=== PATIENT | male | born 1945 ===

== ENCOUNTER 2017-03-07 08:33 | Inpatient (IN) | payer MEDICARE, OTHER ==
[2017-03-07 08:33] VITALS: BMI 25.8
[2017-03-07] MEDS ORDERED: Sodium Chloride 0.9% 500 ML IV ONE (08:57)
--- NOTE | 2017-03-07 08:59 | C.PDOC ---
History Of Present Illness 71 y/o male, history of diabetes and CAD w/ stent, while on vacation in [place] developed ulcer to left medial calf. Patient states he returned from [place] yesterday and saw PMD Dr. Vyas in office yesterday, who sent him in to hospital today for non-healing ulcer. Patient reports pain and swelling to left leg. Denies chest pain, fever, trauma, new weakness, new numbness, or other associated symptoms. Time Seen by Provider: 03/07/17 08:44 Chief Complaint (Nursing): Lower Extremity Problem/Injury History Per: Patient History/Exam Limitations: no limitations Onset/Duration Of Symptoms: Days Current Symptoms Are (Timing): Still Present Recent travel outside of the Home States: Yes Past Medical History Reviewed: Historical Data, Nursing Documentation, Vital Signs Vital Signs: Last Vital Signs Temp 97.5 F L 03/07/17 08:37 Pulse 105 H 03/07/17 08:52 Resp 16 03/07/17 08:52 BP 124/69 03/07/17 08:52 Pulse Ox 100 03/07/17 09:37 - Medical History PMH: Benign Prostatic Hyperplasia, Fractures (RIGHT ARM), HTN, Peripheral Edema , Pneumonia (1964) - [employer] Procedures INSERT INDWELLING CATH (04/08/15) NONEXCIS DEBRID OF WOUND, INFECT, OR BURN (01/31/13) OTHER SKIN & SUBQ I D (01/31/13) VENOUS CATHETERIZATION NEC (01/31/13) Family History: States: Unknown Family Hx - Social History Hx Tobacco Use: No Hx Alcohol Use: No Hx Substance Use: No - Immunization History Hx Tetanus Toxoid Vaccination: No Hx Influenza Vaccination: No Hx Pneumococcal Vaccination: No Review Of Systems Except As Marked, All Systems Reviewed And Found Negative. Constitutional: Negative for: Fever, Chills Cardiovascular: Negative for: Chest Pain, Palpitations Respiratory: Negative for: Cough, Shortness of Breath, Wheezing Gastrointestinal: Negative for: Nausea, Vomiting, Abdominal Pain Genitourinary: Negative for: Dysuria Musculoskeletal: Positive for: Leg Pain Skin: Positive for: Lesions (left lower leg) Neurological: Negative for: Weakness, Numbness, Headache, Dizziness Physical Exam - Physical Exam Appears: Well, Non-toxic, No Acute Distress Skin: Normal Color, Warm, Dry Head: Atraumatic, Normacephalic Oral Mucosa: Moist Chest: Symmetrical Cardiovascular: Rhythm Regular (tachycardic) Respiratory: Normal Breath Sounds, No Rales, No Rhonchi, No Wheezing Gastrointestinal/Abdominal: Soft, No Tenderness, No Guarding, No Rebound Back: Normal Inspection Extremity: Normal ROM, No Deformity, Other (R lower leg WNL. L lower leg: swelling to calf with some tenderness, ulceration to medial ankle, distal pulses intact, normal ROM ) Pulses: Left Dorsalis Pedis: Normal, Right Dorsalis Pedis: Normal Neurological/Psych: Oriented x3, Normal Speech, Normal Cognition, Normal Motor, Normal Sensation ED Course And Treatment - Laboratory Results Result Diagrams: 03/07/17 09:07 03/07/17 09:07 O2 Sat by Pulse Oximetry: 100 (RA) Pulse Ox Interpretation: Normal Medical Decision Making Medical Decision Making: Plan: VBG, venous dupolex scan, labs, Toradol, and IVF's. Admit to Dr. Vyas. 9:30AM Lactate WNL. BP and tachycardia improving after IVF. CBC WNL. Zosyn infusing after chavez culture (as requested by Dr. Vyas). U/s negative for DVT. Disposition Discussed With DrNancy: Peri Vyas Doctor Will See Patient In The: Hospital - Disposition Disposition: HOSPITALIZED Disposition Time: 09:03 Condition: FAIR - Clinical Impression Clinical Impression: Non-healing ulcer of lower leg - Scribe Statement The provider has reviewed the documentation as recorded by the Scribe Ye Jimenez All medical record entries made by the Carol Annibe were at my direction and personally dictated by me. I have reviewed the chart and agree that the record accurately reflects my personal performance of the history, physical exam, medical decision making, and the department course for this patient. I have also personally directed, reviewed, and agree with the discharge instructions and disposition. Decision To Admit - Pt Status Changed To: Hospital Disposition Of: Observation - . Bed Request Type: Regular Patient Diagnosis: Non-healing ulcer of lower leg
--- NOTE | 2017-03-07 09:02 | C.PDOC ---
Time Seen by Provider: 03/07/17 08:44 Chief Complaint (Nursing): Lower Extremity Problem/Injury Past Medical History Vital Signs: Last Vital Signs Temp 97.5 F L 03/07/17 08:37 Pulse 112 H 03/07/17 08:37 Resp 18 03/07/17 08:37 BP 98/62 L 03/07/17 08:37 Pulse Ox 100 03/07/17 08:37 - Medical History PMH: Benign Prostatic Hyperplasia, Fractures (RIGHT ARM), HTN, Peripheral Edema , Pneumonia (1964) Denies: Chronic Kidney Disease - [employer] Procedures INSERT INDWELLING CATH (04/08/15) NONEXCIS DEBRID OF WOUND, INFECT, OR BURN (01/31/13) OTHER SKIN & SUBQ I D (01/31/13) VENOUS CATHETERIZATION NEC (01/31/13) - Social History Hx Tobacco Use: No Hx Alcohol Use: No Hx Substance Use: No - Immunization History Hx Tetanus Toxoid Vaccination: No Hx Influenza Vaccination: No Hx Pneumococcal Vaccination: No ED Course And Treatment O2 Sat by Pulse Oximetry: 100
[2017-03-07 09:06] LABS: VENOUS BLOOD GAS BASE EXCESS -0.6 mmol/L (0.0-2.0); VENOUS BLOOD GAS PCO2 46 mmHg (40-60); VENOUS BLOOD GAS PO2 19 mm/Hg (30-55); VENOUS BLOOD PH 7.35 (7.32-7.43)
[2017-03-07 09:10] LABS: BASO # 0.1 K/uL (0.0-0.2); EOS # 0.5 K/uL (0.0-0.7); EOS % 6.2 % (0.0-4.0); HEMOGLOBIN 10.4 g/dL (12.0-18.0); LYMPH # 1.4 K/uL (1.0-4.3); LYMPH % 18.4 % (20.0-40.0); MEAN CELL VOLUME 90.3 fL (80.0-94.0); MEAN CORPUSCULAR HEMOGLOBIN 31.5 pg (27.0-31.0); MEAN CORPUSCULAR HGB CONC 34.9 g/dL (33.0-37.0); MONO # 0.4 K/uL (0.0-0.8); MONO % 5.9 % (0.0-10.0); NEUT # 5.2 K/uL (1.8-7.0); NEUT % 68.5 % (50.0-75.0); RBC 3.29 Mil/uL (4.40-5.90); RED CELL DISTRIBUTION WIDTH 14.2 % (11.5-14.5); WHITE BLOOD COUNT 7.6 K/uL (4.8-10.8)
[2017-03-07] MEDS ORDERED: Piperacillin/Tazobact 3.375 gm 100 ML IVPB STA (09:16)
[2017-03-07 09:18] LABS: ALBUMIN 4.2 g/dL (3.5-5.0)
[2017-03-07 09:18] LABS: VENOUS BLOOD GAS BASE EXCESS -2.2 mmol/L (0.0-2.0); VENOUS BLOOD GAS PCO2 47 mmHg (40-60); VENOUS BLOOD GAS PO2 20 mm/Hg (30-55); VENOUS BLOOD PH 7.32 (7.32-7.43)
[2017-03-07 09:21] LABS: ALB/GLOB RATIO 1.3 (1.0-2.1)
[2017-03-07 09:22] LABS: CALCIUM 9.1 mg/dl (8.6-10.4); MAGNESIUM 1.4 mg/dL (1.6-2.3)
[2017-03-07] MEDS ORDERED: Piperacillin/Tazobact 3.375 gm 100 ML IVPB ONE (09:34)
[2017-03-07 09:56] LABS: SQUAMOUS EPITHIAL 4 /hpf (0-5); URINE BACTERIA RARE (<OCC); URINE BILIRUBIN NEGATIVE (NEGATIVE); URINE BLOOD NEGATIVE (NEGATIVE); URINE CLARITY Hazy (Clear); URINE COLOR Yellow (YELLOW); URINE GLUCOSE (UA) NORMAL (Normal); URINE LEUKOCYTE ESTERASE 3+ Leu/uL (Negative); URINE NITRATE NEGATIVE (NEGATIVE); URINE PROTEIN NEGATIVE (NEGATIVE); URINE UROBILINOGEN NORMAL mg/dL (0.2-1.0)
--- NOTE | 2017-03-07 10:49 | RAD ---
HISTORY: tachycardia COMPARISON: 02/04/2013 FINDINGS: LUNGS: Mild venous congestion. Patchy left basilar airspace opacity with trace left pleural effusion. PLEURA: As above. CARDIOVASCULAR: Mild cardiomegaly. OSSEOUS STRUCTURES: Degenerative changes in the spine and shoulders. VISUALIZED UPPER ABDOMEN: Normal. OTHER FINDINGS: None. IMPRESSION: Mild venous congestion. Patchy left basilar airspace opacity with trace left pleural effusion.
[2017-03-07] MEDS ORDERED: Home Med 1 UNIT (Metformin [Glucophage] 1,000 MG) PO SCH (12:00)
[2017-03-07] MEDS ORDERED: DUTASTERIDE 0.5 MG PO SCH (12:00)
--- NOTE | 2017-03-07 14:03 | VASCLAB ---
PROCEDURE: Left Lower Extremity Venous Duplex Exam. HISTORY: ulcer to LLE with swelling PRIORS: None. TECHNIQUE: Left common femoral, femoral, popliteal and posterior tibial, peroneal and great saphenous veins were evaluated. Flow was assessed with color Doppler, compressibility, assessment of phasic flow and augmentation response. Report prepared by RYANN Wallace, RVT FINDINGS: LEFT: 1. Common Femoral Vein: 1.1. Compressibility - Fully compressible: Thrombus - None : Flow - Phasic: Augmentation -Normal: Reflux - None. 2. Femoral Vein: 2.1. Compressibility - Fully compressible: Thrombus - None: Flow - Phasic: Augmentation -Normal: Reflux - None. 3. Popliteal Vein: 3.1. Compressibility - Fully compressible: Thrombus - None: Flow - Phasic: Augmentation -Normal: Reflux - None. 4. Posterior Tibial Vein: 4.1. Compressibility - Fully compressible: Thrombus - None: Flow - Phasic: Augmentation -Normal: Reflux - None. 5. Peroneal Vein: 5.1. Compressibility - Fully compressible: Thrombus - None: Flow - Phasic: Augmentation -Normal: Reflux - None. 6. Great Saphenous Vein: 6.1. Compressibility - Fully compressible: Thrombus - None: Flow - Phasic: Augmentation - Normal: Reflux - None. OTHER FINDINGS: IMPRESSION: No evidence of deep or superficial vein thrombosis of the left lower extremity with excellent venous flow. Normal valve function noted of the left side. Normal venous flow noted in the right common femoral vein.
--- NOTE | 2017-03-07 14:14 | CP.PCM.HP ---
History of Present Illness - History of Present Illness History of Present Illness: COMPREHENSIVE HISTORY & PHYSICAL EXAM HPI ADMITTED FOR FURTHER TREATNET FOR FOOT ULCER . PT HAD T2DM, RECENTLY WENT TO [place] AND HAD MINI STROKE AND INSERTED 2 STENTS IN CORONARIES . SUBSEQUENTLY DEVELOPED ULCER AND SWELLING OF L LEG AND REQIRED 2 WEEKS IN HOSPITAL FOR IV AB PT RETURNED TO THE STATES TO CONTINUE THERAPY . PT STILL HAS DRAINING ULCEER OF LEFT LEG WITH CELLULITIS PAST HIST. COPD/CAD/STENT/T2DM/EDEMA LEGS /RENAL INSUFFICIANCY/PROSTATE /STROKE WITH FULL RECOVERY PERSONAL HIST: Smoking. N Alcohol. N Allergy N Travel_- [place] . FAMILY HIST : ROS : Constitutional: Negative for weight change, chills, night sweats, fatigue and usage of assist device. Eyes: Negative for redness, swelling, itching, discharge, vision changes, blurry vision, double vision, glaucoma, cataracts, Ears: Negative for hearing loss, ringing, , tinnitus, vertigo Nose: Negative for rhinorrhea, stuffiness, sniffing, itching, postnasal drip, discoloration, nasal congestion and epistaxis. Throat: Negative for throat clearing, sore throat, hoarseness, difficulty swallowing and difficulty speaking. Respiratory: Negative for cough, , sputum production, chest tightness, wheezing, pleuritic chest pain ,daytime somnolence, chronic cough, hemoptysis, snoring at night, Cardiovascular: Negative for chest pain, palpitations, orthopnea, PND, Edema of legs, leg cramps, angina, claudication, , irregular heartbeat, Neurology: Negative for irritability, muscle weakness, numbness and tingling, seizures, tremors, migraines, slurred speech, syncope, memory loss, mood changes , recurrent headaches Gastrointestinal: Negative for difficulty swallowing, diarrhea, constipation, black stools, rectal bleeding, nausea, flatulence, reflux, poor appetite, changes in bowel habits, abdominal pain Genitourinary: Negative for frequent urination, hematuria, discharge, incontinence, urinary retention, frequent UTI, Psychiatric: Negative for depression, anxiety/panic, suicidal tendencies, Musculoskeletal: LEFT LEG SWOLLEN . R. N Skin: Negative for rash, ulcers, itching, dry skin and pigmented lesions. P/E: Constitutional: Appears stated age and in no apparent distress. Head: Normocephalic. Ears: External ear canals patent without inflammation. Tympanic membranes intact with normal light reflex and landmark. Eyes: Pupils are central, bilaterally equal, symmetrical and reacts to light with normal movements and no icterus or pallor. Nose: External nares are patent. Mucosa is pink Mouth-Throat: Good general appearance and condition. No post-pharyngeal/oropharyngeal erythema and tonsillar hypertrophy. Good dental hygiene. Neck-Lymphatic: Neck is supple with normal ROM, no thyromegaly, lymph nodes or masses. JVD is normal with no carotid bruit. Lungs: Clear to percussion and auscultation with bilateral normal air entry. Cardiovascular: S1 and S2 are normal with no murmurs, gallops and rub. GI Exam: No hepatomegaly. Abdomen is soft and non-tender. No Organomegaly , masses or hernias are evident and bowel sounds are normal and active. Neurology: Higher function and all cranial nerves intact, with no gross motor or sensory deficit. Superficial and deep reflexes are normal with downwards planters. No cerebellar deficit with normal gait. Musculoskeletal: No tender spots with normal curvature of the spine with no swelling or restricted ROM of the small and large joints. Extremities:LEFT LEG IS SWOLLEN WITH CELLULITIS . 2 OPEN SPOTS WITH PUS DRAINING Skin: No rash, eruptions or abnormal skin pigmentation LAB/RADIOLOGY: ASSESMENT : DIABETES WITH LEFT FOOT ULCER , INFECTED RECENT STENT IN CORONARIES HTN/T2DM/COPD PLAN: LOCAL WOUND CARE AND IV AB Present on Admission - Present on Admission Any Indicators Present on Admission: No Past Patient History - Infectious Disease Hx of Infectious Diseases: None - Past Medical History & Family History Past Medical History?: Yes - Past Social History Smoking Status: Never Smoked - CARDIAC Hx Hypertension: Yes Hx Peripheral Edema: Yes - PULMONARY Hx Pneumonia: Yes (1965) - NEUROLOGICAL Hx Neurological Disorder: No - HEENT Hx HEENT Problems: Yes Hx Glaucoma: Yes - RENAL Hx Chronic Kidney Disease: No - ENDOCRINE/METABOLIC Hx Endocrine Disorders: Yes Hx Diabetes Mellitus Type 2: Yes - HEMATOLOGICAL/ONCOLOGICAL Hx Blood Disorders: No - INTEGUMENTARY Hx Dermatological Problems: Yes (PRURITIS) Other/Comment: Mass of neck/scalp - MUSCULOSKELETAL/RHEUMATOLOGICAL Hx Fractures: Yes (RIGHT ARM) - GASTROINTESTINAL Hx Gastrointestinal Disorders: No - GENITOURINARY/GYNECOLOGICAL Hx Genitourinary Disorders: Yes Hx Prostate Problems: Yes - PSYCHIATRIC Hx Substance Use: No - SURGICAL HISTORY Hx Surgeries: Yes Hx Cardiac Catheterization: Yes Hx Orthopedic Surgery: Yes (RIGHT SHOULDER) Other/Comment: CYST FROM BUTTOCKS, prostate bx - ANESTHESIA Hx Anesthesia: Yes Hx Anesthesia Reactions: No Hx Malignant Hyperthermia: No Meds Allergies/Adverse Reactions: Allergies Allergy/AdvReac Type Severity Reaction Status Date / Time shellfish derived Allergy Verified 03/07/17 08:44 tetanus toxoid, adsorbed Allergy RASH Verified 03/07/17 08:44 Results - Vital Signs Recent Vital Signs: Last Vital Signs Temp 97.5 F L 03/07/17 08:37 Pulse 77 03/07/17 12:42 Resp 14 03/07/17 12:42 BP 131/70 03/07/17 12:42 Pulse Ox 100 03/07/17 12:42 - Labs Result Diagrams: 03/07/17 09:07 03/07/17 09:07 Labs: Laboratory Results - last 24 hr 03/07/17 09:44 Urine Color Yellow Urine Clarity Hazy Urine pH 5.0 Ur Specific [place] 1.012 Urine Protein Negative Urine Glucose (UA) Normal Urine Ketones Negative Urine Blood Negative Urine Nitrate Negative Urine Bilirubin Negative Urine Urobilinogen Normal Ur Leukocyte Esterase 3+ H Urine WBC (Auto) 24 H Urine RBC (Auto) 4 H Ur Squamous Epith Cells 4 Urine Bacteria Rare
[2017-03-07] MEDS: (Novolin R) Insulin Human Regular 100 units/ml vial SC SCH ×2 (17:23→22:08)
--- NOTE | 2017-03-07 21:00 | CP.PCM.CON ---
History of Present Illness - History of Present Illness History of Present Illness: INFECTIOUS DISEASE CONSULT; HPI; 71 y/o male, history of diabetes and CAD w/ stent, while on vacation in [place] developed ulcer to left medial calf. Patient states he returned from [place] yesterday and saw PMD Dr. Vyas in office yesterday, who sent him in to hospital today for non-healing ulcer. Patient reports pain and swelling to left leg. Denies chest pain, fever, trauma. PATIENT STATES HE WAS ON IV /AND ORAL ANTIBIOTICS FOR 2 WEEKS WHILE IN [place] AND WAS TOLD TO FOLLOW-UP WITH HIS PMD FOR NOT RESOLVING CELLULITIS/AND SWELLING OF HIS LEFT ANKLE WITH SEROSANGUINEOUS DRAINAGE INTERMITTENTLY. INFECTIOUS DISEASE CONSULTATION REQUESTED BY PMD FOR CELLULITIS/SWELLING AND PAIN LEFT LOWER LEG AND ANKLE. PATIENT ALSO STATES HE HAS DIFFICULTY AMBULATING. PATIENT DENIES ANY INSECT BITE OR TRAUMA TO THE LOWER EXTREMITY. PMH: Benign Prostatic Hyperplasia, Fractures (RIGHT ARM), HTN, Peripheral Edema , Pneumonia (1965),DM-2. ALLERGIES; SHELLFISH, TETANUS TOXOID. - [employer] Procedures INSERT INDWELLING CATH (04/08/15) NONEXCIS DEBRID OF WOUND, INFECT, OR BURN (01/31/13) OTHER SKIN & SUBQ I D (01/31/13) VENOUS CATHETERIZATION NEC (01/31/13) Family History: States: Unknown Family Hx - Social History Hx Tobacco Use: No Hx Alcohol Use: No Hx Substance Use: No - Immunization History Hx Tetanus Toxoid Vaccination: No Hx Influenza Vaccination: No Hx Pneumococcal Vaccination: No Review of Systems - Constitutional Constitutional: absent: Chills, Fever - EENT Eyes: absent: Change in Vision Ears: absent: Dizziness Nose/Mouth/Throat: absent: Sore Throat - Cardiovascular Cardiovascular: Pedal Edema (LEFT LOWER EXTREMITY.). absent: Chest Pain, Dyspnea - Respiratory Respiratory: absent: Hemoptysis, Dyspnea on Exertion - Gastrointestinal Gastrointestinal: absent: Abdominal Pain, Diarrhea, Nausea, Vomiting - Genitourinary Genitourinary: absent: Dysuria, Nocturia - Integumentary Integumentary: Rash (LEFT LOWER ANKLE AND LOWER EXTREMITY WITH CELLULITIS AND ERYTHEMA. aLSO EDEMA OF THE LEFT ANKLE. nO OPEN DRAINAGE AT PRESENT NOTED.) - Hematologic/Lymphatic Hematologic: As Per HPI. absent: Easy Bruising, Lymphadenopathy Past Patient History - Infectious Disease Hx of Infectious Diseases: None - Past Medical History & Family History Past Medical History?: Yes - Past Social History Smoking Status: Never Smoked - CARDIAC Hx Hypertension: Yes Hx Peripheral Edema: Yes - PULMONARY Hx Pneumonia: Yes (1965) - NEUROLOGICAL Hx Neurological Disorder: No - HEENT Hx HEENT Problems: Yes Hx Glaucoma: Yes - RENAL Hx Chronic Kidney Disease: No - ENDOCRINE/METABOLIC Hx Endocrine Disorders: Yes Hx Diabetes Mellitus Type 2: Yes - HEMATOLOGICAL/ONCOLOGICAL Hx Blood Disorders: No - INTEGUMENTARY Hx Dermatological Problems: Yes (PRURITIS) Other/Comment: Mass of neck/scalp - MUSCULOSKELETAL/RHEUMATOLOGICAL Hx Fractures: Yes (RIGHT ARM) - GASTROINTESTINAL Hx Gastrointestinal Disorders: No - GENITOURINARY/GYNECOLOGICAL Hx Genitourinary Disorders: Yes Hx Prostate Problems: Yes - PSYCHIATRIC Hx Substance Use: No - SURGICAL HISTORY Hx Surgeries: Yes Hx Cardiac Catheterization: Yes Hx Orthopedic Surgery: Yes (RIGHT SHOULDER) Other/Comment: CYST FROM BUTTOCKS, prostate bx - ANESTHESIA Hx Anesthesia: Yes Hx Anesthesia Reactions: No Hx Malignant Hyperthermia: No Meds Allergies/Adverse Reactions: Allergies Allergy/AdvReac Type Severity Reaction Status Date / Time shellfish derived Allergy Verified 03/07/17 08:44 tetanus toxoid, adsorbed Allergy RASH Verified 03/07/17 08:44 - Medications Medications: Current Medications Doxazosin Mesylate (Cardura) 4 mg PO DAILY [facility] Last Admin: 03/07/17 13:05 Dose: Not Given Finasteride (Proscar) 5 mg PO DAILY [facility] Furosemide (Lasix) 40 mg PO DAILY [facility] Last Admin: 03/07/17 13:06 Dose: Not Given Glipizide (Glucotrol) 10 mg PO BID [facility] Last Admin: 03/07/17 18:49 Dose: 10 mg Piperacillin Sod/Tazobactam (Sod 3.375 gm/ Sodium Chloride) 100 mls @ 200 mls/ hr IVPB Q8H [facility] Vancomycin HCl 1 gm/ Sodium (Chloride) 250 mls @ 166.7 mls/hr IVPB Q24H [facility] Insulin Human Regular (Novolin R) 0 unit SC ACHS [facility] PRN Reason: Protocol Last Admin: 03/07/17 17:23 Dose: Not Given Lisinopril (Zestril) 2.5 mg PO DAILY [facility] Last Admin: 03/07/17 13:06 Dose: Not Given Metformin HCl (Glucophage) 1,000 mg PO BID [facility] Last Admin: 03/07/17 18:49 Dose: 1,000 mg Ticagrelor (Brilinta) 90 mg PO BID [facility] Physical Exam - Constitutional Appears: No Acute Distress - Head Exam Head Exam: NORMAL INSPECTION - Eye Exam Eye Exam: EOMI, PERRL - ENT Exam ENT Exam: Normal Oropharynx - Neck Exam Neck exam: Positive for: Normal Inspection - Respiratory Exam Respiratory Exam: Clear to Auscultation Bilateral - Cardiovascular Exam Cardiovascular Exam: REGULAR RHYTHM, +S1, +S2 - GI/Abdominal Exam GI & Abdominal Exam: Normal Bowel Sounds, Soft. absent: Tenderness - Extremities Exam Extremities exam: Positive for: pedal edema (LEFT ANKLE AND LOWER EXTREMITY WITH SWELLING AND QUESTIONABLE ABSCESS LEFT ANKLE. wARM TO TOUCH.), pedal pulses present. Negative for: calf tenderness - Neurological Exam Neurological exam: Alert, CN II-XII Intact, Oriented x3, Reflexes Normal - Psychiatric Exam Psychiatric exam: Normal Mood - Skin Skin Exam: Normal Color, Warm Results - Vital Signs Recent Vital Signs: Last Vital Signs Temp 98.3 F 03/07/17 19:21 Pulse 90 03/07/17 19:21 Resp 20 03/07/17 19:21 BP 111/50 L 03/07/17 19:21 Pulse Ox 98 03/07/17 19:21 - Labs Result Diagrams: 03/07/17 09:07 03/07/17 09:07 Labs: Laboratory Results - last 24 hr 03/07/17 03/07/17 09:44 16:53 POC Glucose (mg/dL) 117 H Urine Color Yellow Urine Clarity Hazy Urine pH 5.0 Ur Specific [place] 1.012 Urine Protein Negative Urine Glucose (UA) Normal Urine Ketones Negative Urine Blood Negative Urine Nitrate Negative Urine Bilirubin Negative Urine Urobilinogen Normal Ur Leukocyte Esterase 3+ H Urine WBC (Auto) 24 H Urine RBC (Auto) 4 H Ur Squamous Epith Cells 4 Urine Bacteria Rare - Imaging and Cardiology Chest x-ray Status: Report reviewed by me (03/07/17 chest x-ray patchy left basilar airspace opacity with trace left pleural effusion.) Assessment & Plan (1) Cellulitis and abscess of foot Assessment and Plan: pancultures ESR,CRP,. MRSA SCREENING START iv ZOSYN 3.375 EVERY 8 HOURLY .03/07/17. ADD iv VANCOMYCIN 1 G ONCE A DAY DAILY FOR STAPH AND STREP COVERAGE 03/07/17. X-RAY OF THE LEFT ANKLE/FOOT RULE OUT OSTEOMYELITIS OR FRACTURE. 3-PHASE BONE SCAN LEFT ANKLE AND FOOT RULE OUT OSTEOMYELITIS. fOLLOW-UP vANCO TROUGH LEVEL PRIOR TO THE FOURTH DOSE ON 03/11/17 AND KEEP BETWEEN 10 AND 20. mONITOR RENAL FUNCTIONS CLOSELY. Status: Acute (2) Non-healing ulcer of lower leg Status: Acute (3) CAD (coronary artery disease) Assessment and Plan: S/P CARDIAC STENTS 2 PLACED IN [place]. Status: Acute (4) Diabetes mellitus Assessment and Plan: HEMOGLOBIN a1C. aND TIGHT CONTROL OF BLOOD SUGARS. Status: Acute (5) Renal insufficiency Assessment and Plan: monitor renal functions. IV fluids as per PMD as BUN elevated to 47. Status: Acute
[2017-03-07] MEDS: Piperacillin/Tazobact 3.375 GM in Sodium Chloride 100 ML IVPB SCH (21:58)
[2017-03-08] MEDS: Piperacillin/Tazobact 3.375 GM in Sodium Chloride 100 ML IVPB SCH ×3 (06:29→21:00)
[2017-03-08 07:29] LABS: BASO % 0.5 % (0.0-2.0); EOS # 0.6 K/uL (0.0-0.7); EOS % 7.7 % (0.0-4.0); HEMOGLOBIN 9.4 g/dL (12.0-18.0); LYMPH # 0.6 K/uL (1.0-4.3); LYMPH % 7.7 % (20.0-40.0); MEAN CELL VOLUME 90.3 fL (80.0-94.0); MEAN CORPUSCULAR HEMOGLOBIN 31.2 pg (27.0-31.0); MEAN CORPUSCULAR HGB CONC 34.6 g/dL (33.0-37.0); MEAN PLATELET VOLUME 9.1 fL (7.2-11.7); MONO # 0.5 K/uL (0.0-0.8); MONO % 6.8 % (0.0-10.0); NEUT # 5.9 K/uL (1.8-7.0); NEUT % 77.3 % (50.0-75.0); PLATELET COUNT 183 K/uL (130-400); WHITE BLOOD COUNT 7.7 K/uL (4.8-10.8)
[2017-03-08] MEDS: (Novolin R) Insulin Human Regular 100 units/ml vial SC SCH ×4 (07:50→21:16)
[2017-03-08 08:26] LABS: ALBUMIN 3.4 g/dL (3.5-5.0)
[2017-03-08 08:29] LABS: ALB/GLOB RATIO 1.2 (1.0-2.1); BILIRUBIN,DIRECT 0.4 mg/dL (0.0-0.4)
[2017-03-08 08:30] LABS: CALCIUM 8.6 mg/dl (8.6-10.4)
[2017-03-08 08:43] LABS: EOSINOPHIL 3 % (0-4); LYMPHOCYTE 8 % (20-40); MONOCYTE 2 % (0-10); NEUTROPHIL 87 % (50-75); PLATELET ESTIMATE NORMAL (NORMAL); TOTAL CELLS COUNTED 100
--- NOTE | 2017-03-08 10:15 | RAD ---
PROCEDURE: Left Ankle Radiographs. HISTORY: R/O OSTEOMYLITIS/FRACTURE COMPARISON: None FINDINGS: BONES: Normal. No fracture. JOINTS: Normal. No osteoarthritis. Ankle mortise maintained. Talar dome intact SOFT TISSUES: Normal. OTHER FINDINGS: None. IMPRESSION: Normal left ankle radiographs.
--- NOTE | 2017-03-08 13:52 | CP.PCM.PN ---
Subjective - Date & Time of Evaluation Date of Evaluation: 03/08/17 Time of Evaluation: 13:50 - Subjective Subjective: CHIEF COMPLAINTS TODAY : PAIN LEFT FOOT ROS. HEENT : N. Resp : No cough, wheezing ,pleuritic CP ,or hemoptysis Cardio : No anginal CP, PND, orthopnea, palpitation GI : No abd.pain, n/v ,diarrhea or GI bleeding . MEDICAL CLAIMS ANALYST : No headache, vertigo, focal deficit. Musculoskel : No joint swelling , Derm : No rash Psych : Normal affect. Ext : No swelling ,calf pain PE. Pt. is alert awake in no distress. V.S As noted in the chart Head ,ear nose,throat and eyes : Normal. Neck : Supple with normal carotids. Lungs: Clear air entry. Heart : S1 & S2 normal with S4. No murmur. Abd : Soft non tender with normal bowel sounds. Neuro : Moves all ext. with no localized deficit. Ext : LEFT LEG SWOLLEN WITH CELLULITIS ON DORSUM AND MEDIAL PART OF ANKLE JT. WITH POSSIBLE ABSCESS Derm : No rashes or decubitus ulcer. LABS/RADIOLOGY: [facility] AUR ASSESSMENT/PLAN : IV AB MAY NEED I&D Objective - Vital Signs/Intake and Output Vital Signs (last 24 hours): Temp Pulse Resp BP Pulse Ox 98.1 F 86 20 120/69 97 03/07/17 23:57 03/07/17 23:57 03/07/17 23:57 03/08/17 09:55 03/07/17 23:57 Intake and Output: 03/08/17 03/08/17 11:59 23:59 Intake Total 100 Balance 100 - Medications Medications: Current Medications Doxazosin Mesylate (Cardura) 4 mg PO DAILY [facility] Last Admin: 03/08/17 09:50 Dose: 4 mg Finasteride (Proscar) 5 mg PO DAILY [facility] Last Admin: 03/08/17 09:50 Dose: 5 mg Furosemide (Lasix) 40 mg PO DAILY [facility] Last Admin: 03/08/17 09:55 Dose: 40 mg Glipizide (Glucotrol) 10 mg PO BID [facility] Last Admin: 03/08/17 09:49 Dose: 10 mg Heparin Sodium (Porcine) (Heparin) 5,000 units SC Q12 [facility] Last Admin: 03/08/17 09:51 Dose: 5,000 units Piperacillin Sod/Tazobactam (Sod 3.375 gm/ Sodium Chloride) 100 mls @ 200 mls/ hr IVPB Q8H [facility] Last Admin: 03/08/17 06:29 Dose: 200 mls/hr Vancomycin HCl 1 gm/ Sodium (Chloride) 250 mls @ 166.7 mls/hr IVPB Q24H [facility] Last Admin: 03/07/17 21:58 Dose: 166.7 mls/hr Insulin Human Regular (Novolin R) 0 unit SC ACHS [facility] PRN Reason: Protocol Last Admin: 03/08/17 12:32 Dose: 3 unit Lisinopril (Zestril) 2.5 mg PO DAILY [facility] Last Admin: 03/08/17 09:49 Dose: 2.5 mg Metformin HCl (Glucophage) 1,000 mg PO BID [facility] Last Admin: 03/08/17 09:49 Dose: 1,000 mg Pneumococcal Polyvalent Vaccine (Pneumovax 23 Vaccine) 0.5 ml IM .ONCE ONE Stop: 03/10/17 10:01 Ticagrelor (Brilinta) 90 mg PO BID [facility] Last Admin: 03/08/17 09:48 Dose: 90 mg - Labs Labs: 03/08/17 06:44 03/08/17 06:44
--- NOTE | 2017-03-08 23:07 | CP.PCM.PN ---
Subjective - Date & Time of Evaluation Date of Evaluation: 03/08/17 Time of Evaluation: 23:07 - Subjective Subjective: CHIEF COMPLAINTS TODAY : afebrile, c/o pain left ankle and foot Left lower leg swollen with cellulitis extending on the ankle and dorsum and medial part of the ankle ? abscess. ROS. HEENT : N. Resp : No cough, wheezing ,pleuritic CP ,or hemoptysis Cardio : No anginal CP, PND, orthopnea, palpitation GI : No abd.pain, n/v ,diarrhea or GI bleeding . EDUCATION REPORTER : No headache, vertigo, focal deficit. Musculoskel : No joint swelling , Derm : No rash Psych : Normal affect. Ext : No swelling ,calf pain PE. Pt. is alert awake in no distress. V.S As noted in the chart Head ,ear nose,throat and eyes : Normal. Neck : Supple with normal carotids. Lungs: Clear air entry. Heart : S1 & S2 normal with S4. No murmur. Abd : Soft non tender with normal bowel sounds. Neuro : Moves all ext. with no localized deficit. Ext : LEFT LEG SWOLLEN WITH CELLULITIS ON DORSUM AND MEDIAL PART OF ANKLE JT. WITH POSSIBLE ABSCESS Derm : No rashes or decubitus ulcer. LABS/RADIOLOGY: ESR 58 CREAT1.7 / BUN 45 URINE CULTURE +VE staph aureus more than 100,000 colonies per mL. Blood cultures -ve to date Objective - Vital Signs/Intake and Output Vital Signs (last 24 hours): Temp Pulse Resp BP Pulse Ox 98.1 F 96 H 20 126/63 99 03/08/17 16:00 03/08/17 16:44 03/08/17 16:00 03/08/17 16:44 03/08/17 16:44 Intake and Output: 03/08/17 03/09/17 18:59 06:59 Intake Total 580 Balance 580 - Medications Medications: Current Medications Doxazosin Mesylate (Cardura) 4 mg PO DAILY [facility] Last Admin: 03/08/17 09:50 Dose: 4 mg Furosemide (Lasix) 40 mg PO DAILY [facility] Last Admin: 03/08/17 09:55 Dose: 40 mg Glipizide (Glucotrol) 10 mg PO BID [facility] Last Admin: 03/08/17 17:04 Dose: 10 mg Heparin Sodium (Porcine) (Heparin) 5,000 units SC Q12 [facility] Last Admin: 03/08/17 21:37 Dose: Not Given Home Med (Patient's Own Medication) 1 tab PO DAILY [facility] Piperacillin Sod/Tazobactam (Sod 3.375 gm/ Sodium Chloride) 100 mls @ 200 mls/ hr IVPB Q8H [facility] Last Admin: 03/08/17 21:00 Dose: 200 mls/hr Vancomycin HCl 1 gm/ Sodium (Chloride) 250 mls @ 166.7 mls/hr IVPB Q24H [facility] Last Admin: 03/08/17 21:39 Dose: 166.7 mls/hr Insulin Human Regular (Novolin R) 0 unit SC ACHS [facility] PRN Reason: Protocol Last Admin: 03/08/17 21:16 Dose: Not Given Lisinopril (Zestril) 2.5 mg PO DAILY [facility] Last Admin: 03/08/17 09:49 Dose: 2.5 mg Metformin HCl (Glucophage) 1,000 mg PO BID [facility] Last Admin: 03/08/17 17:04 Dose: 1,000 mg Pneumococcal Polyvalent Vaccine (Pneumovax 23 Vaccine) 0.5 ml IM .ONCE ONE Stop: 03/10/17 10:01 Tamsulosin HCl (Flomax) 0.4 mg PO DAILY [facility] Last Admin: 03/08/17 15:18 Dose: 0.4 mg Ticagrelor (Brilinta) 90 mg PO BID [facility] Last Admin: 03/08/17 17:04 Dose: 90 mg - Labs Labs: 03/08/17 06:44 03/08/17 06:44 Assessment and Plan (1) Cellulitis and abscess of foot Assessment & Plan: x-rays left ankle- N. rADIOGRAPH. tHREE-PHASE BONE SCAN IN PROGRESS. cONTINUE iv zOSYN 3.375 EVERY 8 HOURLY. cONTINUE iv VANCOMYCIN 1 G EVERY 24 HOURLY. Status: Acute (2) Non-healing ulcer of lower leg Assessment & Plan: SURGICAL CONSULT FOR POSSIBLE DRAINAGE AND DEBRIDEMENT LEFT LE/ANKLE ABSCESS fOLLOW-UP THREE-PHASE BONE SCAN. wOUND CARE IN PROGRESS. Status: Acute (3) CAD (coronary artery disease) Status: Acute (4) Diabetes mellitus Status: Acute (5) Renal insufficiency Status: Acute (6) UTI (urinary tract infection) Assessment & Plan: urine culture positive for staph aureus. Identification pending. Patient on IV Vancomycin/IV Zosyn. Status: Acute
[2017-03-09] MEDS: Piperacillin/Tazobact 3.375 GM in Sodium Chloride 100 ML IVPB SCH ×3 (05:40→21:42)
[2017-03-09] MEDS: (Novolin R) Insulin Human Regular 100 units/ml vial SC SCH ×4 (08:02→21:49)
[2017-03-09 08:46] LABS: BASO % 0.7 % (0.0-2.0); EOS # 0.9 K/uL (0.0-0.7); EOS % 16.1 % (0.0-4.0); HEMOGLOBIN 9.6 g/dL (12.0-18.0); LYMPH # 0.8 K/uL (1.0-4.3); LYMPH % 13.5 % (20.0-40.0); MEAN CELL VOLUME 90.6 fL (80.0-94.0); MEAN CORPUSCULAR HEMOGLOBIN 31.1 pg (27.0-31.0); MEAN CORPUSCULAR HGB CONC 34.4 g/dL (33.0-37.0); MEAN PLATELET VOLUME 9.3 fL (7.2-11.7); MONO # 0.5 K/uL (0.0-0.8); MONO % 8.2 % (0.0-10.0); NEUT # 3.4 K/uL (1.8-7.0); NEUT % 61.5 % (50.0-75.0); RBC 3.08 Mil/uL (4.40-5.90); RED CELL DISTRIBUTION WIDTH 14.3 % (11.5-14.5); WHITE BLOOD COUNT 5.6 K/uL (4.8-10.8)
[2017-03-09 08:58] LABS: ALBUMIN 3.6 g/dL (3.5-5.0)
[2017-03-09 09:01] LABS: ALB/GLOB RATIO 1.2 (1.0-2.1)
[2017-03-09 09:02] LABS: CALCIUM 8.7 mg/dl (8.6-10.4)
[2017-03-09] MEDS: DUTASTERIDE 0.5 MG PO SCH ×2 (09:37→16:15)
--- NOTE | 2017-03-09 09:44 | NM ---
PROCEDURE: Three-phase bone scan HISTORY: LT.ANKLE/FOOT R/O Osteomyelitis. COMPARISON: 03/08/2017 left ankle radiographs. TECHNIQUE: Following administration of miCu of Tc MDP multiplanar whole body images were obtained. FINDINGS: Flow component: Increased flow left lower extremity compared to right primarily medial aspect without focal osseous abnormality Blood pool component: Accumulation of radionuclide in the soft tissues adjacent to but not involving the distal tibia and ankle mortise region Delayed images at 3:00: No accumulation of radionuclide within osseous structures, particular attention directed to the left ankle region. Other findings: None. IMPRESSION: Findings consistent with cellulitis left lower extremity without acute osseous process.
[2017-03-09] MEDS ORDERED: Lactated Ringer's 1,000 ML IV ONE (12:35)
[2017-03-09] MEDS ORDERED: Midazolam 2 MG/2 ML VIAL ONE (12:38)
[2017-03-09] MEDS ORDERED: Bupivacaine HCl 0.25% PF (10 ml) Inj ONE ×2 (12:38)
[2017-03-09] MEDS ORDERED: Lidocaine 1% Inj (20ml) ONE (12:39)
[2017-03-09] MEDS ORDERED: Propofol 10 mg/ml Inj (20 ML) ONE (12:39)
[2017-03-09] MEDS ORDERED: HYDROmorphone 0.5 mg/0.5 ml ISec IVP PRN (13:25)
--- NOTE | 2017-03-09 14:00 | CP.PCM.PN ---
Subjective - Date & Time of Evaluation Date of Evaluation: 03/09/17 Time of Evaluation: 13:59 - Subjective Subjective: CHIEF COMPLAINTS TODAY : PAIN LEFT FOOT S/P LEFT FOOT I&D ROS. HEENT : N. Resp : No cough, wheezing ,pleuritic CP ,or hemoptysis Cardio : No anginal CP, PND, orthopnea, palpitation GI : No abd.pain, n/v ,diarrhea or GI bleeding . CHIEF OF FIELD OPERATIONS : No headache, vertigo, focal deficit. Musculoskel : No joint swelling , Derm : No rash Psych : Normal affect. Ext : No swelling ,calf pain PE. Pt. is alert awake in no distress. V.S As noted in the chart Head ,ear nose,throat and eyes : Normal. Neck : Supple with normal carotids. Lungs: Clear air entry. Heart : S1 & S2 normal with S4. No murmur. Abd : Soft non tender with normal bowel sounds. Neuro : Moves all ext. with no localized deficit. Ext : LEFT LEG SWOLLEN WITH CELLULITIS ON DORSUM AND MEDIAL PART OF ANKLE JT. WITH POSSIBLE ABSCESS Derm : No rashes or decubitus ulcer. LABS/RADIOLOGY: [facility] AUR ASSESSMENT/PLAN : IV AB KIEL Objective - Vital Signs/Intake and Output Vital Signs (last 24 hours): Temp Pulse Resp BP Pulse Ox 97.7 F 80 13 138/76 100 03/09/17 13:15 03/09/17 13:45 03/09/17 13:45 03/09/17 13:45 03/09/17 13:45 Intake and Output: 03/09/17 03/09/17 11:59 23:59 Intake Total 100 Balance 100 - Medications Medications: Current Medications Doxazosin Mesylate (Cardura) 4 mg PO DAILY [facility] Last Admin: 03/09/17 09:36 Dose: Not Given Furosemide (Lasix) 40 mg PO DAILY [facility] Last Admin: 03/09/17 09:36 Dose: Not Given Glipizide (Glucotrol) 10 mg PO BID [facility] Last Admin: 03/09/17 09:36 Dose: Not Given Heparin Sodium (Porcine) (Heparin) 5,000 units SC Q12 [facility] Last Admin: 03/09/17 09:37 Dose: Not Given Home Med (Patient's Own Medication) 1 tab PO DAILY [facility] Last Admin: 03/09/17 09:37 Dose: Not Given Hydromorphone HCl (Dilaudid) 0.5 mg IVP Q10M PRN PRN Reason: Pain, moderate (4-7) Stop: 03/09/17 15:28 Piperacillin Sod/Tazobactam (Sod 3.375 gm/ Sodium Chloride) 100 mls @ 200 mls/ hr IVPB Q8H [facility] Last Admin: 03/09/17 05:40 Dose: 200 mls/hr Vancomycin HCl 1 gm/ Sodium (Chloride) 250 mls @ 166.7 mls/hr IVPB Q24H [facility] Last Admin: 03/08/17 21:39 Dose: 166.7 mls/hr Lactated Ringer's (Lactated Ringer's) 1,000 mls @ 100 mls/hr IV .Q10H [facility] Insulin Human Regular (Novolin R) 0 unit SC ACHS [facility] PRN Reason: Protocol Last Admin: 03/09/17 12:02 Dose: Not Given Lisinopril (Zestril) 2.5 mg PO DAILY [facility] Last Admin: 03/09/17 09:37 Dose: Not Given Metformin HCl (Glucophage) 1,000 mg PO BID [facility] Last Admin: 03/09/17 09:36 Dose: Not Given Ondansetron HCl (Zofran Inj) 4 mg IVP ONCE PRN PRN Reason: Nausea/Vomiting Stop: 03/09/17 15:29 Pneumococcal Polyvalent Vaccine (Pneumovax 23 Vaccine) 0.5 ml IM .ONCE ONE Stop: 03/10/17 10:01 Tamsulosin HCl (Flomax) 0.4 mg PO DAILY [facility] Last Admin: 03/09/17 09:36 Dose: Not Given Ticagrelor (Brilinta) 90 mg PO BID [facility] Last Admin: 03/09/17 09:36 Dose: Not Given Tramadol HCl (Ultram) 50 mg PO TID PRN PRN Reason: pain - Labs Labs: 03/09/17 08:32 03/09/17 08:32
[2017-03-09] MEDS: Lactated Ringer's 1,000 ML IV SCH (14:46)
--- NOTE | 2017-03-09 16:04 | CP.PCM.PN ---
Subjective - Date & Time of Evaluation Date of Evaluation: 03/09/17 Time of Evaluation: 16:04 - Subjective Subjective: CHIEF COMPLAINTS TODAY : s/p I & D LLL/ANKLE AND CULTURES TAKEN IN OR. 03/09/17 afebrile, c/o pain left ankle and foot +VE DRESSING IN PLACE ROS. HEENT : N. Resp : No cough, wheezing ,pleuritic CP ,or hemoptysis Cardio : No anginal CP, PND, orthopnea, palpitation GI : No abd.pain, n/v ,diarrhea or GI bleeding . FITTING ROOM CHECKER : No headache, vertigo, focal deficit. Musculoskel : No joint swelling , Derm : No rash Psych : Normal affect. Ext : LLE /ANKLE +VE DRESSING , +VE calf pain PE. Pt. is alert awake in no distress. V.S As noted in the chart Head ,ear nose,throat and eyes : Normal. Neck : Supple with normal carotids. Lungs: Clear air entry. Heart : S1 & S2 normal with S4. No murmur. Abd : Soft non tender with normal bowel sounds. Neuro : Moves all ext. with no localized deficit. Ext : LEFT LEG S/P I & D . DRESSING IN PLACE S/P I & D 03/09/17 Derm : No rashes or decubitus ulcer. LABS/RADIOLOGY: bone scan +ve cellulitis without osseous process. ESR 58 CREAT1.6 / BUN 35 URINE CULTURE +VE staph aureus more than 100,000 colonies per mL. (MSSA ) Blood cultures -ve to date Objective - Vital Signs/Intake and Output Vital Signs (last 24 hours): Temp Pulse Resp BP Pulse Ox 97.8 F 74 15 132/64 99 03/09/17 14:00 03/09/17 14:15 03/09/17 14:00 03/09/17 14:15 03/09/17 14:00 - Medications Medications: Current Medications Doxazosin Mesylate (Cardura) 4 mg PO DAILY [facility] Last Admin: 03/09/17 09:36 Dose: Not Given Furosemide (Lasix) 40 mg PO DAILY [facility] Last Admin: 03/09/17 09:36 Dose: Not Given Glipizide (Glucotrol) 10 mg PO BID [facility] Last Admin: 03/09/17 09:36 Dose: Not Given Heparin Sodium (Porcine) (Heparin) 5,000 units SC Q12 [facility] Last Admin: 03/09/17 09:37 Dose: Not Given Home Med (Patient's Own Medication) 1 tab PO DAILY [facility] Last Admin: 03/09/17 09:37 Dose: Not Given Piperacillin Sod/Tazobactam (Sod 3.375 gm/ Sodium Chloride) 100 mls @ 200 mls/ hr IVPB Q8H [facility] Last Admin: 03/09/17 14:45 Dose: 200 mls/hr Vancomycin HCl 1 gm/ Sodium (Chloride) 250 mls @ 166.7 mls/hr IVPB Q24H [facility] Last Admin: 03/08/17 21:39 Dose: 166.7 mls/hr Lactated Ringer's (Lactated Ringer's) 1,000 mls @ 100 mls/hr IV .Q10H [facility] Last Admin: 03/09/17 14:46 Dose: 100 mls/hr Insulin Human Regular (Novolin R) 0 unit SC ACHS [facility] PRN Reason: Protocol Last Admin: 03/09/17 12:02 Dose: Not Given Lisinopril (Zestril) 2.5 mg PO DAILY [facility] Last Admin: 03/09/17 09:37 Dose: Not Given Metformin HCl (Glucophage) 1,000 mg PO BID [facility] Last Admin: 03/09/17 09:36 Dose: Not Given Pneumococcal Polyvalent Vaccine (Pneumovax 23 Vaccine) 0.5 ml IM .ONCE ONE Stop: 03/10/17 10:01 Tamsulosin HCl (Flomax) 0.4 mg PO DAILY [facility] Last Admin: 03/09/17 09:36 Dose: Not Given Ticagrelor (Brilinta) 90 mg PO BID [facility] Last Admin: 03/09/17 09:36 Dose: Not Given Tramadol HCl (Ultram) 50 mg PO TID PRN PRN Reason: pain Assessment and Plan (1) Cellulitis and abscess of foot Assessment & Plan: PATIENT STATUS POST INCISION AND DRAINAGE AND DEBRIDEMENT OF THE LEFT ANKLE ABSCESS.03/09/17 PER SURGERY , PURULENT MATERIAL DRAINED FROM THE ANKLE AND MEDIAL ASPECT OF THE LEFT ANKLE, WHICH IS SWOLLEN ALSO. CONTINUE iv ZOSYN 3.375 EVERY 8 HOURLY .03/07/17. CONTINUE iv VANCOMYCIN 1 G ONCE A DAY DAILY FOR STAPH AND STREP COVERAGE . F/U CULTURES TO ADJUST ANTIBIOTICS. Status: Acute (2) Non-healing ulcer of lower leg Assessment & Plan: FOLLOW-UP CULTURES AND ADJUST ANTIBIOTICS. Status: Acute (3) CAD (coronary artery disease) Status: Acute (4) Diabetes mellitus Status: Acute (5) Renal insufficiency Status: Acute (6) UTI (urinary tract infection) Assessment & Plan: URINE CULTURE +VE STAPH AUREUS (MSSA ) RENAL ULTRASOUND RULE OUT HYDRONEPHROSIS /NEPHROLITHIASIS. Status: Acute
--- NOTE | 2017-03-09 23:11 | OP ---
PROCEDURE DATE: 03/09/2017 PREOPERATIVE DIAGNOSIS: Infected mass of the left ankle with abscess. POSTOPERATIVE DIAGNOSIS: Infected mass on the left ankle with abscess. PROCEDURE PERFORMED: Wide deep excision of infected mass of the left ankle with drainage of abscess, repair of blood vessel, and partial adjacent tissue transfer closure. SURGEON: Abel Ulloa MD TYPE OF ANESTHESIA: General. ESTIMATED BLOOD LOSS: 20 mL. POSTOPERATIVE CONDITION: Stable. 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 DESCRIPTION OF PROCEDURE: The patient was taken to the operating room and general anesthesia was administered. The left ankle was prepped and draped. An elliptical incision was made surrounding the infected mass and it was removed and sent for specimen and the underlying pus was drained and cultured. The bleeding was controlled using the Bovie and exposed large vessel was repaired. The wound was irrigated with copious amounts of saline solution. Partial tissue transfer closure was performed. The central portion wound was packed up in wet saline gauze. The patient tolerated the procedure well and sent to recovery room in stable condition. Abel Ulloa MD
[2017-03-10] MEDS: Lactated Ringer's 1,000 ML IV SCH ×3 (04:54→21:12)
[2017-03-10] MEDS: Piperacillin/Tazobact 3.375 GM in Sodium Chloride 100 ML IVPB SCH ×3 (05:00→21:05)
[2017-03-10] MEDS: (Novolin R) Insulin Human Regular 100 units/ml vial SC SCH ×4 (07:44→21:12)
[2017-03-10 08:23] LABS: BASO % 0.6 % (0.0-2.0); EOS # 0.9 K/uL (0.0-0.7); EOS % 15.6 % (0.0-4.0); HEMOGLOBIN 8.8 g/dL (12.0-18.0); LYMPH # 0.9 K/uL (1.0-4.3); LYMPH % 15.4 % (20.0-40.0); MEAN CELL VOLUME 90.4 fL (80.0-94.0); MEAN CORPUSCULAR HEMOGLOBIN 30.8 pg (27.0-31.0); MEAN CORPUSCULAR HGB CONC 34.1 g/dL (33.0-37.0); MEAN PLATELET VOLUME 9.2 fL (7.2-11.7); MONO # 0.4 K/uL (0.0-0.8); MONO % 7.1 % (0.0-10.0); NEUT # 3.5 K/uL (1.8-7.0); NEUT % 61.3 % (50.0-75.0); RBC 2.87 Mil/uL (4.40-5.90); RED CELL DISTRIBUTION WIDTH 14.3 % (11.5-14.5); WHITE BLOOD COUNT 5.7 K/uL (4.8-10.8)
[2017-03-10 08:42] LABS: ALBUMIN 3.3 g/dL (3.5-5.0)
[2017-03-10 08:44] LABS: AST/SGOT 14 U/L (17-59); GFR AFRICAN-AMERICAN > 60; GFR NON-AFRICAN AMERICAN 50
[2017-03-10 08:45] LABS: ALB/GLOB RATIO 1.2 (1.0-2.1); ALT/SGPT 24 U/L (21-72); BLOOD UREA NITROGEN 24 mg/dL (9-20); CALCIUM 8.7 mg/dl (8.6-10.4)
[2017-03-10] MEDS: DUTASTERIDE 0.5 MG PO SCH (09:23)
[2017-03-10] MEDS ORDERED: Pneumococcal 23-Valent Vaccine IM ONE (10:00)
--- NOTE | 2017-03-10 11:35 | US ---
PROCEDURE: Ultrasound of the Kidneys HISTORY: RULE OUT NEPHROLITHIASIS/HYDRO COMPARISON: None available. TECHNIQUE: Grayscale imaging was performed. FINDINGS: RIGHT KIDNEY: Measures: 12.2 cm. Normal in size, contour with diffuse increased echogenicity. No stone, solid mass lesion or hydronephrosis visualized. LEFT KIDNEY: Measures: 12.3 cm. Normal in size, contour with diffuse increased echogenicity. No stone, solid mass lesion or hydronephrosis visualized. There is a 2.3 x 1.7 x 2.4 cm simple cyst in the upper pole. OTHER FINDINGS: None. IMPRESSION: 1. Medical renal disease. 2. No hydronephrosis or nephrolithiasis.
--- NOTE | 2017-03-10 13:13 | CARD ---
APPROVED REPORT EKG Measurement Heart [id number] <Conclusion> Normal sinus rhythm Left anterior fascicular block Left ventricular hypertrophy with QRS widening Abnormal ECG
--- NOTE | 2017-03-10 13:22 | CP.PCM.PN ---
Subjective - Date & Time of Evaluation Date of Evaluation: 03/10/17 Time of Evaluation: 13:21 - Subjective Subjective: CHIEF COMPLAINTS TODAY : PAIN LEFT FOOT S/P LEFT FOOT I&D ROS. HEENT : N. Resp : No cough, wheezing ,pleuritic CP ,or hemoptysis Cardio : No anginal CP, PND, orthopnea, palpitation GI : No abd.pain, n/v ,diarrhea or GI bleeding . CLERK TYPIST : No headache, vertigo, focal deficit. Musculoskel : No joint swelling , Derm : No rash Psych : Normal affect. Ext : No swelling ,calf pain PE. Pt. is alert awake in no distress. V.S As noted in the chart Head ,ear nose,throat and eyes : Normal. Neck : Supple with normal carotids. Lungs: Clear air entry. Heart : S1 & S2 normal with S4. No murmur. Abd : Soft non tender with normal bowel sounds. Neuro : Moves all ext. with no localized deficit. Ext : LEFT LEG SWOLLEN WITH CELLULITIS ON DORSUM AND MEDIAL PART OF ANKLE JT. WITH POSSIBLE ABSCESS Derm : No rashes or decubitus ulcer. LABS/RADIOLOGY: [facility] AUR ASSESSMENT/PLAN : IV AB KIEL Objective - Vital Signs/Intake and Output Vital Signs (last 24 hours): Temp Pulse Resp BP Pulse Ox 98.2 F 96 H 20 110/60 98 03/09/17 23:33 03/09/17 23:33 03/09/17 23:33 03/10/17 09:24 03/09/17 23:33 - Medications Medications: Current Medications Aspirin (Ecotrin) 81 mg PO DAILY [facility] Last Admin: 03/10/17 09:25 Dose: 81 mg Doxazosin Mesylate (Cardura) 4 mg PO DAILY [facility] Last Admin: 03/10/17 09:25 Dose: 4 mg Furosemide (Lasix) 40 mg PO DAILY [facility] Last Admin: 03/10/17 09:24 Dose: 40 mg Glipizide (Glucotrol) 10 mg PO BID [facility] Last Admin: 03/10/17 09:24 Dose: 10 mg Heparin Sodium (Porcine) (Heparin) 5,000 units SC Q12 [facility] Last Admin: 03/10/17 09:23 Dose: 5,000 units Home Med (Patient's Own Medication) 1 tab PO DAILY [facility] Last Admin: 03/10/17 09:23 Dose: 1 tab Piperacillin Sod/Tazobactam (Sod 3.375 gm/ Sodium Chloride) 100 mls @ 200 mls/ hr IVPB Q8H [facility] Last Admin: 03/10/17 05:00 Dose: 200 mls/hr Vancomycin HCl 1 gm/ Sodium (Chloride) 250 mls @ 166.7 mls/hr IVPB Q24H [facility] Last Admin: 03/09/17 22:15 Dose: 166.7 mls/hr Lactated Ringer's (Lactated Ringer's) 1,000 mls @ 100 mls/hr IV .Q10H [facility] Last Admin: 03/10/17 10:00 Dose: Not Given Insulin Human Regular (Novolin R) 0 unit SC ACHS [facility] PRN Reason: Protocol Last Admin: 03/10/17 12:11 Dose: 3 unit Lisinopril (Zestril) 2.5 mg PO DAILY [facility] Last Admin: 03/10/17 09:25 Dose: 2.5 mg Metformin HCl (Glucophage) 1,000 mg PO BID [facility] Last Admin: 03/10/17 09:25 Dose: 1,000 mg Tamsulosin HCl (Flomax) 0.4 mg PO DAILY [facility] Last Admin: 03/10/17 09:25 Dose: 0.4 mg Ticagrelor (Brilinta) 90 mg PO BID [facility] Last Admin: 03/10/17 09:25 Dose: 90 mg Tramadol HCl (Ultram) 50 mg PO TID PRN PRN Reason: pain - Labs Labs: 03/10/17 08:10 03/10/17 08:10
--- NOTE | 2017-03-10 13:37 | CP.PCM.PN ---
Subjective - Date & Time of Evaluation Date of Evaluation: 03/10/17 Time of Evaluation: 13:36 - Subjective Subjective: HIEF COMPLAINTS TODAY : s/p I & D LLL/ANKLE AND CULTURES TAKEN IN OR. 03/09/17 afebrile, c/o pain left ankle and foot +VE DRESSING IN PLACE ROS. HEENT : N. Resp : No cough, wheezing ,pleuritic CP ,or hemoptysis Cardio : No anginal CP, PND, orthopnea, palpitation GI : No abd.pain, n/v ,diarrhea or GI bleeding . 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 Musculoskel : No joint swelling , Derm : No rash Psych : Normal affect. Ext : LLE /ANKLE +VE DRESSING , +VE calf pain PE. Pt. is alert awake in no distress. V.S As noted in the chart Head ,ear nose,throat and eyes : Normal. Neck : Supple with normal carotids. Lungs: Clear air entry. Heart : S1 & S2 normal with S4. No murmur. Abd : Soft non tender with normal bowel sounds. Neuro : Moves all ext. with no localized deficit. Ext : LEFT LEG S/P I & D . DRESSING IN PLACE S/P I & D 03/09/17 Derm : No rashes or decubitus ulcer. LABS/RADIOLOGY: WBC 5.7 WOUND CULTURE -VE GROWTH FOR 24 HOURS. bone scan +ve cellulitis without osseous process. ESR 58 CREAT1.4 / BUN 24 URINE CULTURE +VE staph aureus more than 100,000 colonies per mL. (MSSA ) Blood cultures -ve to date Objective - Vital Signs/Intake and Output Vital Signs (last 24 hours): Temp Pulse Resp BP Pulse Ox 97.5 F L 98 H 20 110/68 98 03/10/17 10:00 03/10/17 10:00 03/10/17 10:00 03/10/17 10:00 03/10/17 10:00 Intake and Output: 03/10/17 03/10/17 06:59 18:59 Intake Total 1200 Balance 1200 - Medications Medications: Current Medications Aspirin (Ecotrin) [address] [facility] Last Admin: 03/10/17 09:25 Dose: 81 mg Doxazosin Mesylate (Cardura) [address] [facility] Last Admin: 03/10/17 09:25 Dose: 4 mg Furosemide (Lasix) [address] [facility] Last Admin: 03/10/17 09:24 Dose: 40 mg Glipizide (Glucotrol) [address] [facility] Last Admin: 03/10/17 09:24 Dose: 10 mg Heparin Sodium (Porcine) (Heparin) 5,[address] [facility] Last Admin: 03/10/17 09:23 Dose: 5,000 units Home Med (Patient's Own Medication) [address] [facility] Last Admin: 03/10/17 09:23 Dose: 1 tab Piperacillin Sod/Tazobactam (Sod 3.375 gm/ Sodium Chloride) 100 mls @ 200 mls/ hr IVPB Q8H [facility] Last Admin: 03/10/17 05:00 Dose: 200 mls/hr Vancomycin HCl 1 gm/ Sodium (Chloride) 250 mls @ 166.7 mls/hr IVPB Q24H [facility] Last Admin: 03/09/17 22:15 Dose: 166.7 mls/hr Lactated Ringer's (Lactated Ringer's) 1,000 mls @ 100 mls/hr IV .Q10H [facility] Last Admin: 03/10/17 10:00 Dose: Not Given Insulin Human Regular (Novolin R) [address] [facility] PRN Reason: Protocol Last Admin: 03/10/17 12:11 Dose: 3 unit Lisinopril (Zestril) 2.[address] [facility] Last Admin: 03/10/17 09:25 Dose: 2.5 mg Metformin HCl (Glucophage) 1,[address] [facility] Last Admin: 03/10/17 09:25 Dose: 1,000 mg Tamsulosin HCl (Flomax) 0.[address] [facility] Last Admin: 03/10/17 09:25 Dose: 0.4 mg Ticagrelor (Brilinta) [address] [facility] Last Admin: 03/10/17 09:25 Dose: 90 mg Tramadol HCl (Ultram) 50 mg PO TID PRN PRN Reason: pain - Labs Labs: 03/10/17 08:10 03/10/17 08:10 Assessment and Plan (1) Cellulitis and abscess of foot Assessment & Plan: PATIENT STATUS POST INCISION AND DRAINAGE AND DEBRIDEMENT OF THE LEFT ANKLE ABSCESS.03/09/17 PER SURGERY , PURULENT MATERIAL DRAINED FROM THE ANKLE AND MEDIAL ASPECT OF THE LEFT ANKLE, WHICH IS SWOLLEN ALSO. CONTINUE iv ZOSYN 3.375 EVERY 8 HOURLY .03/07/17. CONTINUE iv VANCOMYCIN 1 G ONCE A DAY DAILY FOR STAPH AND STREP COVERAGE . F/U CULTURES TO ADJUST ANTIBIOTICS. Status: Acute (2) Non-healing ulcer of lower leg Status: Acute (3) CAD (coronary artery disease) Status: Acute (4) Diabetes mellitus Status: Acute (5) Renal insufficiency Status: Acute (6) UTI (urinary tract infection) Assessment & Plan: RENAL ULTRASOUND; NO STONES, MEDICAL RENAL DISEASE. rEPEAT ua URINE CULTURES. Status: Acute
[2017-03-10 23:04] LABS: SQUAMOUS EPITHIAL < 1 /hpf (0-5); URINE BILIRUBIN NEGATIVE (NEGATIVE); URINE BLOOD NEGATIVE (NEGATIVE); URINE CLARITY Clear (Clear); URINE COLOR Straw (YELLOW); URINE GLUCOSE (UA) NORMAL (Normal); URINE LEUKOCYTE ESTERASE NEG Leu/uL (Negative); URINE NITRATE NEGATIVE (NEGATIVE); URINE PROTEIN NEGATIVE (NEGATIVE); URINE UROBILINOGEN NORMAL mg/dL (0.2-1.0)
[2017-03-11] MEDS: Piperacillin/Tazobact 3.375 GM in Sodium Chloride 100 ML IVPB SCH ×3 (05:14→21:37)
[2017-03-11] MEDS: Lactated Ringer's 1,000 ML IV SCH ×3 (05:15→17:44)
[2017-03-11 07:10] LABS: BASO # 0.1 K/uL (0.0-0.2); BASO % 0.9 % (0.0-2.0); EOS % 17.8 % (0.0-4.0); HEMOGLOBIN 9.1 g/dL (12.0-18.0); LYMPH # 1.2 K/uL (1.0-4.3); LYMPH % 19.9 % (20.0-40.0); MEAN CELL VOLUME 89.5 fL (80.0-94.0); MEAN CORPUSCULAR HEMOGLOBIN 30.9 pg (27.0-31.0); MEAN CORPUSCULAR HGB CONC 34.5 g/dL (33.0-37.0); MEAN PLATELET VOLUME 8.8 fL (7.2-11.7); MONO # 0.4 K/uL (0.0-0.8); NEUT # 3.2 K/uL (1.8-7.0); NEUT % 54.4 % (50.0-75.0); RBC 2.95 Mil/uL (4.40-5.90); WHITE BLOOD COUNT 5.8 K/uL (4.8-10.8)
[2017-03-11] MEDS: (Novolin R) Insulin Human Regular 100 units/ml vial SC SCH ×4 (07:30→21:39)
[2017-03-11 08:01] LABS: ALBUMIN 3.3 g/dL (3.5-5.0)
[2017-03-11 08:04] LABS: ALB/GLOB RATIO 1.2 (1.0-2.1); AST/SGOT 18 U/L (17-59); BLOOD UREA NITROGEN 21 mg/dL (9-20); CALCIUM 8.7 mg/dl (8.6-10.4); GFR AFRICAN-AMERICAN > 60; GFR NON-AFRICAN AMERICAN 55
[2017-03-11 08:05] LABS: ALT/SGPT 27 U/L (21-72)
[2017-03-11] MEDS: DUTASTERIDE 0.5 MG PO SCH (10:09)
--- NOTE | 2017-03-11 13:34 | CP.PCM.PN ---
Subjective - Date & Time of Evaluation Date of Evaluation: 03/11/17 Time of Evaluation: 13:34 - Subjective Subjective: CHIEF COMPLAINTS TODAY : PAIN LEFT FOOT S/P LEFT FOOT I&D ROS. HEENT : N. Resp : No cough, wheezing ,pleuritic CP ,or hemoptysis Cardio : No anginal CP, PND, orthopnea, palpitation GI : No abd.pain, n/v ,diarrhea or GI bleeding . STITCHDOWN TOE FORMER : No headache, vertigo, focal deficit. Musculoskel : No joint swelling , Derm : No rash Psych : Normal affect. Ext : No swelling ,calf pain PE. Pt. is alert awake in no distress. V.S As noted in the chart Head ,ear nose,throat and eyes : Normal. Neck : Supple with normal carotids. Lungs: Clear air entry. Heart : S1 & S2 normal with S4. No murmur. Abd : Soft non tender with normal bowel sounds. Neuro : Moves all ext. with no localized deficit. Ext : LEFT LEG SWOLLEN WITH CELLULITIS ON DORSUM AND MEDIAL PART OF ANKLE JT. WITH POSSIBLE ABSCESS Derm : No rashes or decubitus ulcer. LABS/RADIOLOGY: [facility] ASSESSMENT/PLAN : IV AB [facility] Objective - Vital Signs/Intake and Output Vital Signs (last 24 hours): Temp Pulse Resp BP Pulse Ox 98.8 F 69 20 105/58 L 98 03/11/17 08:59 03/11/17 08:59 03/11/17 08:59 03/11/17 10:08 03/11/17 08:59 Intake and Output: 03/11/17 03/11/17 11:59 23:59 Intake Total 1360 Output Total 600 Balance 760 - Medications Medications: Current Medications Aspirin (Ecotrin) 81 mg PO DAILY [facility] Last Admin: 03/11/17 10:09 Dose: 81 mg Doxazosin Mesylate (Cardura) 4 mg PO DAILY [facility] Last Admin: 03/11/17 10:08 Dose: 4 mg Furosemide (Lasix) 40 mg PO DAILY [facility] Last Admin: 03/11/17 10:08 Dose: 40 mg Glipizide (Glucotrol) 10 mg PO BID [facility] Last Admin: 03/11/17 11:55 Dose: 10 mg Home Med (Patient's Own Medication) 1 tab PO DAILY [facility] Last Admin: 03/11/17 10:09 Dose: 1 tab Piperacillin Sod/Tazobactam (Sod 3.375 gm/ Sodium Chloride) 100 mls @ 200 mls/ hr IVPB Q8H [facility] Last Admin: 03/11/17 05:14 Dose: 200 mls/hr Vancomycin HCl 1 gm/ Sodium (Chloride) 250 mls @ 166.7 mls/hr IVPB Q24H [facility] Last Admin: 03/10/17 22:15 Dose: 166.7 mls/hr Lactated Ringer's (Lactated Ringer's) 1,000 mls @ 100 mls/hr IV .Q10H [facility] Last Admin: 03/11/17 10:15 Dose: 100 mls/hr Insulin Human Regular (Novolin R) 0 unit SC ACHS [facility] PRN Reason: Protocol Last Admin: 03/11/17 11:56 Dose: 6 unit Lisinopril (Zestril) 2.5 mg PO DAILY [facility] Last Admin: 03/11/17 10:08 Dose: 2.5 mg Metformin HCl (Glucophage) 1,000 mg PO BID [facility] Last Admin: 03/11/17 11:55 Dose: 1,000 mg Tamsulosin HCl (Flomax) 0.4 mg PO DAILY [facility] Last Admin: 03/11/17 10:09 Dose: 0.4 mg Ticagrelor (Brilinta) 90 mg PO BID [facility] Last Admin: 03/11/17 10:09 Dose: 90 mg Tramadol HCl (Ultram) 50 mg PO TID PRN PRN Reason: pain - Labs Labs: 03/11/17 06:56 03/11/17 06:56
--- NOTE | 2017-03-11 18:13 | CP.PCM.PN ---
Subjective - Date & Time of Evaluation Date of Evaluation: 03/11/17 Time of Evaluation: 18:13 - Subjective Subjective: CHIEF COMPLAINTS TODAY : AFEBRILE c/o pain left ankle and foot +VE DRESSING IN PLACE s/p I & D LLE/ANKLE IN OR. 03/09/17 ROS. HEENT : N. Resp : No cough, wheezing ,pleuritic CP ,or hemoptysis Cardio : No anginal CP, PND, orthopnea, palpitation GI : No abd.pain, n/v ,diarrhea or GI bleeding . 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 Musculoskel : No joint swelling , Derm : No rash Psych : Normal affect. Ext : LLE /ANKLE +VE DRESSING , +VE calf pain PE. Pt. is alert awake in no distress. V.S As noted in the chart Head ,ear nose,throat and eyes : Normal. Neck : Supple with normal carotids. Lungs: Clear air entry. Heart : S1 & S2 normal with S4. No murmur. Abd : Soft non tender with normal bowel sounds. Neuro : Moves all ext. with no localized deficit. Ext : LEFT LEG S/P I & D . DRESSING IN PLACE S/P I & D 03/09/17 Derm : No rashes or decubitus ulcer. LABS/RADIOLOGY: 03/10/17 vANCO TROUGH 13.1 OK. WBC 5.8 WOUND CULTURE -VE GROWTH FOR 48HRS HOURS. bone scan +ve cellulitis without osseous process. ESR 58 CREAT1.4 / BUN 24 URINE CULTURE +VE staph aureus more than 100,000 colonies per mL. (MSSA ) Blood cultures -ve to date Objective - Vital Signs/Intake and Output Vital Signs (last 24 hours): Temp Pulse Resp BP Pulse Ox 98.8 F 69 20 105/58 L 98 03/11/17 08:59 03/11/17 08:59 03/11/17 08:59 03/11/17 10:08 03/11/17 08:59 Intake and Output: 03/11/17 03/11/17 06:59 18:59 Intake Total 2710 Output Total 1400 Balance 1310 - Medications Medications: Current Medications Aspirin (Ecotrin) 81 mg PO DAILY [facility] Last Admin: 03/11/17 10:09 Dose: 81 mg Doxazosin Mesylate (Cardura) 4 mg PO DAILY [facility] Last Admin: 03/11/17 10:08 Dose: 4 mg Furosemide (Lasix) 40 mg PO DAILY [facility] Last Admin: 03/11/17 10:08 Dose: 40 mg Glipizide (Glucotrol) 10 mg PO BID [facility] Last Admin: 03/11/17 17:41 Dose: 10 mg Home Med (Patient's Own Medication) 1 tab PO DAILY [facility] Last Admin: 03/11/17 10:09 Dose: 1 tab Piperacillin Sod/Tazobactam (Sod 3.375 gm/ Sodium Chloride) 100 mls @ 200 mls/ hr IVPB Q8H [facility] Last Admin: 03/11/17 14:29 Dose: 200 mls/hr Vancomycin HCl 1 gm/ Sodium (Chloride) 250 mls @ 166.7 mls/hr IVPB Q24H [facility] Last Admin: 03/10/17 22:15 Dose: 166.7 mls/hr Lactated Ringer's (Lactated Ringer's) 1,000 mls @ 100 mls/hr IV .Q10H [facility] Last Admin: 03/11/17 17:44 Dose: Not Given Insulin Human Regular (Novolin R) 0 unit SC ACHS [facility] PRN Reason: Protocol Last Admin: 03/11/17 11:56 Dose: 6 unit Lisinopril (Zestril) 2.5 mg PO DAILY [facility] Last Admin: 03/11/17 10:08 Dose: 2.5 mg Metformin HCl (Glucophage) 1,000 mg PO BID [facility] Last Admin: 03/11/17 17:41 Dose: 1,000 mg Tamsulosin HCl (Flomax) 0.4 mg PO DAILY [facility] Last Admin: 03/11/17 10:09 Dose: 0.4 mg Ticagrelor (Brilinta) 90 mg PO BID [facility] Last Admin: 03/11/17 17:41 Dose: 90 mg Tramadol HCl (Ultram) 50 mg PO TID PRN PRN Reason: pain - Labs Labs: 03/11/17 06:56 03/11/17 06:56 Assessment and Plan (1) Cellulitis and abscess of foot Assessment & Plan: CONTINUE iv ZOSYN 3.375 EVERY 8 HOURLY .03/07/17. CONTINUE iv VANCOMYCIN 1 G ONCE A DAY DAILY FOR STAPH AND STREP COVERAGE . F/U CULTURES TO ADJUST ANTIBIOTICS. PT WILL NEED A PICC LINE ON MONDAY IV ABX IN [facility] ON DISCHARGE PT TO GET IV ROCEPHIN 1 GM IV Q12 HRLY X 2 WEEKS. IF CULTURES - VE IN OR. Status: Acute (2) Non-healing ulcer of lower leg Status: Acute (3) CAD (coronary artery disease) Status: Acute (4) Diabetes mellitus Status: Acute (5) Renal insufficiency Assessment & Plan: improving. Status: Acute (6) UTI (urinary tract infection) Assessment & Plan: renal ultrasound noted -ve nephrolithiasis/ NEGATIVE FOR HYDRONEPHROSIS. Medical renal disease. FOLLOW-UP REPEAT ua URINE CULTURES. Status: Acute
[2017-03-12] MEDS: Lactated Ringer's 1,000 ML IV SCH ×2 (01:30→12:14)
[2017-03-12] MEDS: Piperacillin/Tazobact 3.375 GM in Sodium Chloride 100 ML IVPB SCH ×3 (05:55→21:28)
[2017-03-12] MEDS: (Novolin R) Insulin Human Regular 100 units/ml vial SC SCH ×4 (07:30→21:29)
[2017-03-12 08:32] LABS: BASO # 0.1 K/uL (0.0-0.2); BASO % 1.2 % (0.0-2.0); EOS # 0.9 K/uL (0.0-0.7); EOS % 17.8 % (0.0-4.0); HEMOGLOBIN 9.4 g/dL (12.0-18.0); LYMPH # 1.2 K/uL (1.0-4.3); LYMPH % 22.9 % (20.0-40.0); MEAN CELL VOLUME 90.1 fL (80.0-94.0); MEAN CORPUSCULAR HEMOGLOBIN 31.3 pg (27.0-31.0); MEAN CORPUSCULAR HGB CONC 34.8 g/dL (33.0-37.0); MEAN PLATELET VOLUME 9.1 fL (7.2-11.7); MONO # 0.4 K/uL (0.0-0.8); MONO % 7.6 % (0.0-10.0); NEUT # 2.6 K/uL (1.8-7.0); NEUT % 50.5 % (50.0-75.0); WHITE BLOOD COUNT 5.2 K/uL (4.8-10.8)
[2017-03-12] MEDS: DUTASTERIDE 0.5 MG PO SCH (09:11)
[2017-03-12 09:16] LABS: ALBUMIN 3.6 g/dL (3.5-5.0)
[2017-03-12 09:19] LABS: GFR AFRICAN-AMERICAN > 60; GFR NON-AFRICAN AMERICAN > 60
[2017-03-12 09:20] LABS: ALB/GLOB RATIO 1.2 (1.0-2.1); ALT/SGPT 23 U/L (21-72); AST/SGOT 20 U/L (17-59); BLOOD UREA NITROGEN 20 mg/dL (9-20); CALCIUM 8.8 mg/dl (8.6-10.4)
--- NOTE | 2017-03-12 14:20 | CP.PCM.PN ---
Subjective - Date & Time of Evaluation Date of Evaluation: 03/12/17 Time of Evaluation: 14:20 - Subjective Subjective: CHIEF COMPLAINTS TODAY : PAIN LEFT FOOT S/P LEFT FOOT I&D ROS. HEENT : N. Resp : No cough, wheezing ,pleuritic CP ,or hemoptysis Cardio : No anginal CP, PND, orthopnea, palpitation GI : No abd.pain, n/v ,diarrhea or GI bleeding . 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 Musculoskel : No joint swelling , Derm : No rash Psych : Normal affect. Ext : No swelling ,calf pain PE. Pt. is alert awake in no distress. V.S As noted in the chart Head ,ear nose,throat and eyes : Normal. Neck : Supple with normal carotids. Lungs: Clear air entry. Heart : S1 & S2 normal with S4. No murmur. Abd : Soft non tender with normal bowel sounds. Neuro : Moves all ext. with no localized deficit. Ext : LEFT LEG SWOLLEN WITH CELLULITIS ON DORSUM AND MEDIAL PART OF ANKLE JT. WITH POSSIBLE ABSCESS Derm : No rashes or decubitus ulcer. LABS/RADIOLOGY: [facility] ASSESSMENT/PLAN : IV AB KIEL Objective - Vital Signs/Intake and Output Vital Signs (last 24 hours): Temp Pulse Resp BP Pulse Ox 98.2 F 97 H 20 137/77 98 03/12/17 09:03 03/12/17 09:03 03/12/17 09:03 03/12/17 09:10 03/12/17 09:03 Intake and Output: 03/12/17 03/12/17 11:59 23:59 Intake Total 1000 Output Total 800 Balance 200 - Medications Medications: Current Medications Aspirin (Ecotrin) 81 mg PO DAILY [facility] Last Admin: 03/12/17 09:09 Dose: 81 mg Doxazosin Mesylate (Cardura) 4 mg PO DAILY [facility] Last Admin: 03/12/17 09:09 Dose: 4 mg Furosemide (Lasix) 40 mg PO DAILY [facility] Last Admin: 03/12/17 09:10 Dose: 40 mg Glipizide (Glucotrol) 10 mg PO BID [facility] Last Admin: 03/12/17 09:10 Dose: 10 mg Home Med (Patient's Own Medication) 1 tab PO DAILY [facility] Last Admin: 03/12/17 09:11 Dose: 1 tab Piperacillin Sod/Tazobactam (Sod 3.375 gm/ Sodium Chloride) 100 mls @ 200 mls/ hr IVPB Q8H [facility] Last Admin: 03/12/17 13:40 Dose: 200 mls/hr Vancomycin HCl 1 gm/ Sodium (Chloride) 250 mls @ 166.7 mls/hr IVPB Q24H [facility] Last Admin: 03/11/17 22:57 Dose: 166.7 mls/hr Lactated Ringer's (Lactated Ringer's) 1,000 mls @ 100 mls/hr IV .Q10H [facility] Last Admin: 03/12/17 12:14 Dose: 100 mls/hr Insulin Human Regular (Novolin R) 0 unit SC ACHS [facility] PRN Reason: Protocol Last Admin: 03/12/17 12:12 Dose: 3 unit Lisinopril (Zestril) 2.5 mg PO DAILY [facility] Last Admin: 03/12/17 09:11 Dose: 2.5 mg Metformin HCl (Glucophage) 1,000 mg PO BID [facility] Last Admin: 03/12/17 09:10 Dose: 1,000 mg Tamsulosin HCl (Flomax) 0.4 mg PO DAILY [facility] Last Admin: 03/12/17 09:09 Dose: 0.4 mg Ticagrelor (Brilinta) 90 mg PO BID [facility] Last Admin: 03/12/17 09:09 Dose: 90 mg Tramadol HCl (Ultram) 50 mg PO TID PRN PRN Reason: pain - Labs Labs: 03/12/17 08:24 03/12/17 08:24
[2017-03-13] MEDS: Piperacillin/Tazobact 3.375 GM in Sodium Chloride 100 ML IVPB SCH ×3 (05:17→21:38)
[2017-03-13 08:01] LABS: BASO # 0.1 K/uL (0.0-0.2); BASO % 1.1 % (0.0-2.0); EOS # 1.3 K/uL (0.0-0.7); EOS % 16.5 % (0.0-4.0); HEMOGLOBIN 10.2 g/dL (12.0-18.0); LYMPH # 1.9 K/uL (1.0-4.3); MEAN CELL VOLUME 90.9 fL (80.0-94.0); MEAN CORPUSCULAR HEMOGLOBIN 31.3 pg (27.0-31.0); MEAN CORPUSCULAR HGB CONC 34.4 g/dL (33.0-37.0); MONO # 0.5 K/uL (0.0-0.8); MONO % 6.7 % (0.0-10.0); NEUT # 3.8 K/uL (1.8-7.0); NEUT % 50.7 % (50.0-75.0); RBC 3.26 Mil/uL (4.40-5.90); RED CELL DISTRIBUTION WIDTH 13.9 % (11.5-14.5); WHITE BLOOD COUNT 7.6 K/uL (4.8-10.8)
[2017-03-13 08:11] LABS: ALBUMIN 3.8 g/dL (3.5-5.0)
[2017-03-13 08:14] LABS: ALB/GLOB RATIO 1.2 (1.0-2.1); AST/SGOT 36 U/L (17-59); BLOOD UREA NITROGEN 18 mg/dL (9-20); GFR AFRICAN-AMERICAN > 60; GFR NON-AFRICAN AMERICAN 55
[2017-03-13 08:15] LABS: ALT/SGPT 37 U/L (21-72)
[2017-03-13] MEDS: (Novolin R) Insulin Human Regular 100 units/ml vial SC SCH ×4 (08:16→22:00)
[2017-03-13] MEDS: DUTASTERIDE 0.5 MG PO SCH (10:08)
--- NOTE | 2017-03-13 12:04 | CP.PCM.PN ---
Subjective - Date & Time of Evaluation Date of Evaluation: 03/13/17 Time of Evaluation: 12:04 - Subjective Subjective: AFEBRILE c/o pain left ankle and foot C/O sattellite crusting leisions on the left foot +VE DRESSING IN PLACE C/D/I s/p PICC LINE s/p I & D LLE/ANKLE IN OR. 03/09/17 ROS. HEENT : N. Resp : No cough, wheezing ,pleuritic CP ,or hemoptysis Cardio : No anginal CP, PND, orthopnea, palpitation GI : No abd.pain, n/v ,diarrhea or GI bleeding . 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 Musculoskel : No joint swelling , Derm : No rash Psych : Normal affect. Ext : LLE /ANKLE +VE DRESSING , +VE calf pain PE. Pt. is alert awake in no distress. V.S As noted in the chart Head ,ear nose,throat and eyes : Normal. Neck : Supple with normal carotids. Lungs: Clear air entry. Heart : S1 & S2 normal with S4. No murmur. Abd : Soft non tender with normal bowel sounds. Neuro : Moves all ext. with no localized deficit. Ext : LEFT LEG S/P I & D . DRESSING IN PLACE,sattellite crusting leisions on the left foot seen but drying up S/P I & D 03/09/17 Derm : No rashes or decubitus ulcer. LABS/RADIOLOGY: 03/10/17 vANCO TROUGH 13.1 OK. WOUND CULTURE -VE GROWTH FOR 48HRS HOURS. bone scan +ve cellulitis without osseous process. ESR 58 CREAT1.3, BUN18 lfts N REPEAT URINE CULTURE -VE URINE CULTURE +VE staph aureus more than 100,000 colonies per mL. (MSSA ) Blood cultures -ve to date Objective - Vital Signs/Intake and Output Vital Signs (last 24 hours): Temp Pulse Resp BP Pulse Ox 97 F L 95 H 21 142/79 97 03/13/17 08:16 03/13/17 08:16 03/13/17 08:16 03/13/17 10:05 03/13/17 08:16 Intake and Output: 03/13/17 03/13/17 06:59 18:59 Intake Total 1500 Output Total 600 Balance 900 - Medications Medications: Current Medications Aspirin (Ecotrin) 81 mg PO DAILY [facility] Last Admin: 03/13/17 10:06 Dose: 81 mg Doxazosin Mesylate (Cardura) 4 mg PO DAILY [facility] Last Admin: 03/13/17 10:08 Dose: 4 mg Furosemide (Lasix) 40 mg PO DAILY [facility] Last Admin: 03/13/17 10:05 Dose: 40 mg Glipizide (Glucotrol) 10 mg PO BID [facility] Last Admin: 03/13/17 10:05 Dose: 10 mg Home Med (Patient's Own Medication) 1 tab PO DAILY [facility] Last Admin: 03/13/17 10:08 Dose: 1 tab Piperacillin Sod/Tazobactam (Sod 3.375 gm/ Sodium Chloride) 100 mls @ 200 mls/ hr IVPB Q8H [facility] Last Admin: 03/13/17 05:17 Dose: 200 mls/hr Vancomycin HCl 1 gm/ Sodium (Chloride) 250 mls @ 166.7 mls/hr IVPB Q24H [facility] Last Admin: 03/12/17 22:22 Dose: 166.7 mls/hr Insulin Human Regular (Novolin R) 0 unit SC ACHS [facility] PRN Reason: Protocol Last Admin: 03/13/17 11:47 Dose: 2 unit Lisinopril (Zestril) 2.5 mg PO DAILY [facility] Last Admin: 03/13/17 10:11 Dose: 2.5 mg Metformin HCl (Glucophage) 1,000 mg PO BID [facility] Last Admin: 03/13/17 10:06 Dose: 1,000 mg Tamsulosin HCl (Flomax) 0.4 mg PO DAILY [facility] Last Admin: 03/13/17 10:07 Dose: 0.4 mg Ticagrelor (Brilinta) 90 mg PO BID [facility] Last Admin: 03/13/17 10:06 Dose: 90 mg Tramadol HCl (Ultram) 50 mg PO TID PRN PRN Reason: pain - Labs Labs: 03/13/17 07:45 03/13/17 07:45 Assessment and Plan (1) Cellulitis and abscess of foot Assessment & Plan: S/P I & D CONTINUE iv ZOSYN 3.375 EVERY 8 HOURLY .03/07/17.-7DAYS CONTINUE iv VANCOMYCIN 1 G ONCE A DAY DAILY FOR STAPH AND STREP COVERAGE . . S/P PICC LINE TODAY IV ABX IN [facility] ON DISCHARGE PT TO GET IV ROCEPHIN 1 GM IV Q12 HRLY X 2 WEEKS. LWC PER SURGERY. Status: Acute (2) Non-healing ulcer of lower leg Status: Acute (3) CAD (coronary artery disease) Status: Acute (4) Diabetes mellitus Status: Acute (5) Renal insufficiency Status: Acute (6) UTI (urinary tract infection) Assessment & Plan: RENAL US NOTED -VE HYDRO, -VE CALCULI REPEAT URINE CULTURE -VE GROWTH. Status: Acute
--- NOTE | 2017-03-13 13:49 | CP.PCM.PN ---
Subjective - Date & Time of Evaluation Date of Evaluation: 03/13/17 Time of Evaluation: 13:49 - Subjective Subjective: CHIEF COMPLAINTS TODAY : PAIN LEFT FOOT S/P LEFT FOOT I&D ROS. HEENT : N. Resp : No cough, wheezing ,pleuritic CP ,or hemoptysis Cardio : No anginal CP, PND, orthopnea, palpitation GI : No abd.pain, n/v ,diarrhea or GI bleeding . 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 Musculoskel : No joint swelling , Derm : No rash Psych : Normal affect. Ext : No swelling ,calf pain PE. Pt. is alert awake in no distress. V.S As noted in the chart Head ,ear nose,throat and eyes : Normal. Neck : Supple with normal carotids. Lungs: Clear air entry. Heart : S1 & S2 normal with S4. No murmur. Abd : Soft non tender with normal bowel sounds. Neuro : Moves all ext. with no localized deficit. Ext : LEFT LEG SWOLLEN WITH CELLULITIS ON DORSUM AND MEDIAL PART OF ANKLE JT. WITH POSSIBLE ABSCESS Derm : No rashes or decubitus ulcer. LABS/RADIOLOGY: [facility] ASSESSMENT/PLAN : IV AB Objective - Vital Signs/Intake and Output Vital Signs (last 24 hours): Temp Pulse Resp BP Pulse Ox 97 F L 95 H 21 142/79 97 03/13/17 08:16 03/13/17 08:16 03/13/17 08:16 03/13/17 10:05 03/13/17 08:16 Intake and Output: 03/13/17 03/13/17 11:59 23:59 Output Total 200 Balance -200 - Medications Medications: Current Medications Aspirin (Ecotrin) 81 mg PO DAILY [facility] Last Admin: 03/13/17 10:06 Dose: 81 mg Doxazosin Mesylate (Cardura) 4 mg PO DAILY [facility] Last Admin: 03/13/17 10:08 Dose: 4 mg Furosemide (Lasix) 40 mg PO DAILY [facility] Last Admin: 03/13/17 10:05 Dose: 40 mg Glipizide (Glucotrol) 10 mg PO BID [facility] Last Admin: 03/13/17 10:05 Dose: 10 mg Home Med (Patient's Own Medication) 1 tab PO DAILY [facility] Last Admin: 03/13/17 10:08 Dose: 1 tab Piperacillin Sod/Tazobactam (Sod 3.375 gm/ Sodium Chloride) 100 mls @ 200 mls/ hr IVPB Q8H [facility] Last Admin: 03/13/17 05:17 Dose: 200 mls/hr Vancomycin HCl 1 gm/ Sodium (Chloride) 250 mls @ 166.7 mls/hr IVPB Q24H [facility] Last Admin: 03/12/17 22:22 Dose: 166.7 mls/hr Insulin Human Regular (Novolin R) 0 unit SC ACHS [facility] PRN Reason: Protocol Last Admin: 03/13/17 11:47 Dose: 2 unit Lisinopril (Zestril) 2.5 mg PO DAILY [facility] Last Admin: 03/13/17 10:11 Dose: 2.5 mg Metformin HCl (Glucophage) 1,000 mg PO BID [facility] Last Admin: 03/13/17 10:06 Dose: 1,000 mg Tamsulosin HCl (Flomax) 0.4 mg PO DAILY [facility] Last Admin: 03/13/17 10:07 Dose: 0.4 mg Ticagrelor (Brilinta) 90 mg PO BID [facility] Last Admin: 03/13/17 10:06 Dose: 90 mg Tramadol HCl (Ultram) 50 mg PO TID PRN PRN Reason: pain - Labs Labs: 03/13/17 07:45 03/13/17 07:45
--- NOTE | 2017-03-13 14:46 | RAD ---
HISTORY: verify right PICC COMPARISON: Chest x-ray performed 03/07/17 TECHNIQUE: Chest, one view. FINDINGS: Right-sided PICC extends to the expected location of the cavoatrial junction. LUNGS: Mild left basilar atelectasis. Please note that chest x-ray has limited sensitivity for the detection of pulmonary masses. PLEURA: No significant pleural effusion identified. No definite pneumothorax . CARDIOVASCULAR: Heart size appears within normal limits. OSSEOUS STRUCTURES: Degenerative changes of the spine. VISUALIZED UPPER ABDOMEN: Elevation of the right hemidiaphragm. OTHER FINDINGS: None. IMPRESSION: Right-sided PICC. Mild left basilar atelectasis.
[2017-03-14] MEDS: Piperacillin/Tazobact 3.375 GM in Sodium Chloride 100 ML IVPB SCH ×3 (05:58→21:18)
[2017-03-14] MEDS: (Novolin R) Insulin Human Regular 100 units/ml vial SC SCH ×4 (07:29→21:54)
[2017-03-14] MEDS: DUTASTERIDE 0.5 MG PO SCH (09:20)
--- NOTE | 2017-03-14 11:59 | CP.PCM.PN ---
Subjective - Date & Time of Evaluation Date of Evaluation: 03/14/17 Time of Evaluation: 11:59 - Subjective Subjective: AFEBRILE +VE DRESSING IN PLACE C/D/I s/p PICC LINE 03/13/17 s/p I & D LLE/ANKLE IN OR. 03/09/17 ROS. HEENT : N. Resp : No cough, wheezing ,pleuritic CP ,or hemoptysis Cardio : No anginal CP, PND, orthopnea, palpitation GI : No abd.pain, n/v ,diarrhea or GI bleeding . 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 Musculoskel : No joint swelling , Derm : No rash Psych : Normal affect. Ext : LLE /ANKLE +VE DRESSING , +VE calf pain PE. Pt. is alert awake in no distress. V.S As noted in the chart Head ,ear nose,throat and eyes : Normal. Neck : Supple with normal carotids. Lungs: Clear air entry. Heart : S1 & S2 normal with S4. No murmur. Abd : Soft non tender with normal bowel sounds. Neuro : Moves all ext. with no localized deficit. Ext : LEFT LEG S/P I & D . DRESSING IN PLACE,sattellite crusting leisions on the left foot seen but drying up S/P I & D 03/09/17 Derm : No rashes or decubitus ulcer. LABS/RADIOLOGY: 03/10/17 vANCO TROUGH 13.1 OK. WOUND CULTURE -VE GROWTH FOR 48HRS HOURS. bone scan +ve cellulitis without osseous process. ESR 58 CREAT1.3, BUN18 lfts N REPEAT URINE CULTURE -VE URINE CULTURE +VE staph aureus more than 100,000 colonies per mL. (MSSA ) Blood cultures -ve to date Objective - Vital Signs/Intake and Output Vital Signs (last 24 hours): Temp Pulse Resp BP Pulse Ox 98.3 F 97 H 20 132/76 97 03/14/17 07:42 03/14/17 07:42 03/14/17 07:42 03/14/17 09:18 03/14/17 07:42 Intake and Output: 03/14/17 03/14/17 06:59 18:59 Intake Total 350 Balance 350 - Medications Medications: Current Medications Aspirin (Ecotrin) 81 mg PO DAILY [facility] Last Admin: 03/14/17 09:17 Dose: 81 mg Doxazosin Mesylate (Cardura) 4 mg PO DAILY [facility] Last Admin: 03/14/17 09:18 Dose: 4 mg Furosemide (Lasix) 40 mg PO DAILY [facility] Last Admin: 03/14/17 09:18 Dose: 40 mg Glipizide (Glucotrol) 10 mg PO BID [facility] Last Admin: 03/14/17 09:18 Dose: Not Given Home Med (Patient's Own Medication) 1 tab PO DAILY [facility] Last Admin: 03/14/17 09:20 Dose: 1 tab Piperacillin Sod/Tazobactam (Sod 3.375 gm/ Sodium Chloride) 100 mls @ 200 mls/ hr IVPB Q8H [facility] Last Admin: 03/14/17 05:58 Dose: 200 mls/hr Vancomycin HCl 1 gm/ Sodium (Chloride) 250 mls @ 166.7 mls/hr IVPB Q24H [facility] Last Admin: 03/13/17 21:46 Dose: 166.7 mls/hr Insulin Human Regular (Novolin R) 0 unit SC ACHS [facility] PRN Reason: Protocol Last Admin: 03/14/17 11:38 Dose: 2 unit Lisinopril (Zestril) 2.5 mg PO DAILY [facility] Last Admin: 03/14/17 09:18 Dose: 2.5 mg Metformin HCl (Glucophage) 1,000 mg PO BID [facility] Last Admin: 03/14/17 09:18 Dose: Not Given Tamsulosin HCl (Flomax) 0.4 mg PO DAILY [facility] Last Admin: 03/14/17 09:18 Dose: 0.4 mg Ticagrelor (Brilinta) 90 mg PO BID [facility] Last Admin: 03/14/17 09:18 Dose: 90 mg Tramadol HCl (Ultram) 50 mg PO TID PRN PRN Reason: pain - Labs Labs: 03/13/17 07:45 03/13/17 07:45 Assessment and Plan (1) Cellulitis and abscess of foot Assessment & Plan: S/P PICC .AWAITING [facility] PLACEMENT IV ABX IN [facility] ON DISCHARGE PT TO GET IV ROCEPHIN 1 GM IV Q12 HRLY X 2 WEEKS. LWC PER SURGERY. Status: Acute (2) Non-healing ulcer of lower leg Assessment & Plan: PER SURGERY, PATIENT TO BE TAKEN TO OR IN A.M. Status: Acute (3) CAD (coronary artery disease) Status: Acute (4) Diabetes mellitus Status: Acute (5) Renal insufficiency Status: Acute (6) UTI (urinary tract infection) Status: Acute
--- NOTE | 2017-03-14 13:47 | CP.PCM.PN ---
Subjective - Date & Time of Evaluation Date of Evaluation: 03/14/17 Time of Evaluation: 13:46 - Subjective Subjective: CHIEF COMPLAINTS TODAY : PAIN LEFT FOOT S/P LEFT FOOT I&D ROS. HEENT : N. Resp : No cough, wheezing ,pleuritic CP ,or hemoptysis Cardio : No anginal CP, PND, orthopnea, palpitation GI : No abd.pain, n/v ,diarrhea or GI bleeding . 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 Musculoskel : No joint swelling , Derm : No rash Psych : Normal affect. Ext : No swelling ,calf pain PE. Pt. is alert awake in no distress. V.S As noted in the chart Head ,ear nose,throat and eyes : Normal. Neck : Supple with normal carotids. Lungs: Clear air entry. Heart : S1 & S2 normal with S4. No murmur. Abd : Soft non tender with normal bowel sounds. Neuro : Moves all ext. with no localized deficit. Ext : LEFT LEG SWOLLEN WITH CELLULITIS ON DORSUM AND MEDIAL PART OF ANKLE JT. WITH POSSIBLE ABSCESS Derm : No rashes or decubitus ulcer. LABS/RADIOLOGY: [facility] AUR ASSESSMENT/PLAN : IV AB D/W SURGERY , WANTS TO DEBRIDE NECROTIC FAT IN AM PT IS FOR REHAB Objective - Vital Signs/Intake and Output Vital Signs (last 24 hours): Temp Pulse Resp BP Pulse Ox 98.3 F 97 H 20 132/76 97 03/14/17 07:42 03/14/17 07:42 03/14/17 07:42 03/14/17 09:18 03/14/17 07:42 Intake and Output: 03/14/17 03/14/17 11:59 23:59 Intake Total 100 Balance 100 - Medications Medications: Current Medications Aspirin (Ecotrin) 81 mg PO DAILY [facility] Last Admin: 03/14/17 09:17 Dose: 81 mg Doxazosin Mesylate (Cardura) 4 mg PO DAILY [facility] Last Admin: 03/14/17 09:18 Dose: 4 mg Furosemide (Lasix) 40 mg PO DAILY [facility] Last Admin: 03/14/17 09:18 Dose: 40 mg Glipizide (Glucotrol) 10 mg PO BID [facility] Last Admin: 03/14/17 09:18 Dose: Not Given Home Med (Patient's Own Medication) 1 tab PO DAILY [facility] Last Admin: 03/14/17 09:20 Dose: 1 tab Piperacillin Sod/Tazobactam (Sod 3.375 gm/ Sodium Chloride) 100 mls @ 200 mls/ hr IVPB Q8H [facility] Last Admin: 03/14/17 05:58 Dose: 200 mls/hr Vancomycin HCl 1 gm/ Sodium (Chloride) 250 mls @ 166.7 mls/hr IVPB Q24H [facility] Last Admin: 03/13/17 21:46 Dose: 166.7 mls/hr Insulin Human Regular (Novolin R) 0 unit SC ACHS [facility] PRN Reason: Protocol Last Admin: 03/14/17 11:38 Dose: 2 unit Lisinopril (Zestril) 2.5 mg PO DAILY [facility] Last Admin: 03/14/17 09:18 Dose: 2.5 mg Metformin HCl (Glucophage) 1,000 mg PO BID [facility] Last Admin: 03/14/17 09:18 Dose: Not Given Tamsulosin HCl (Flomax) 0.4 mg PO DAILY [facility] Last Admin: 03/14/17 09:18 Dose: 0.4 mg Ticagrelor (Brilinta) 90 mg PO BID [facility] Last Admin: 03/14/17 09:18 Dose: 90 mg Tramadol HCl (Ultram) 50 mg PO TID PRN PRN Reason: pain - Labs Labs: 03/13/17 07:45 03/13/17 07:45
[2017-03-15] MEDS: Piperacillin/Tazobact 3.375 GM in Sodium Chloride 100 ML IVPB SCH ×2 (05:21→13:38)
[2017-03-15] MEDS: (Novolin R) Insulin Human Regular 100 units/ml vial SC SCH ×4 (08:48→21:17)
[2017-03-15] MEDS: DUTASTERIDE 0.5 MG PO SCH ×2 (10:06→14:03)
[2017-03-15] MEDS ORDERED: Lactated Ringer's 1,000 ML IV ONE ×2 (11:10→11:43)
[2017-03-15] MEDS ORDERED: Midazolam 2 MG/2 ML VIAL ONE (11:14)
[2017-03-15] MEDS ORDERED: Propofol 10 mg/ml Inj (20 ML) ONE (11:14)
[2017-03-15] MEDS ORDERED: Lidocaine 1% Inj (20ml) ONE (11:19)
[2017-03-15] MEDS ORDERED: Bupivacaine HCl 0.25% PF (10 ml) Inj ONE (11:19)
[2017-03-15] MEDS ORDERED: HYDROmorphone 0.5 mg/0.5 ml ISec IVP PRN (11:55)
--- NOTE | 2017-03-15 13:41 | CP.PCM.PN ---
Subjective - Date & Time of Evaluation Date of Evaluation: 03/15/17 Time of Evaluation: 13:40 - Subjective Subjective: S/P DEBRIDEMENT OF LEFT ANKLE WOUNG ON IV AB PT CAN GO TO [facility] TODAY Objective - Vital Signs/Intake and Output Vital Signs (last 24 hours): Temp Pulse Resp BP Pulse Ox 97.6 F 88 18 126/68 97 03/15/17 12:30 03/15/17 12:30 03/15/17 12:30 03/15/17 12:30 03/15/17 12:30 Intake and Output: 03/15/17 03/15/17 11:59 23:59 Intake Total 100 100 Output Total 500 Balance -400 100 - Medications Medications: Current Medications Aspirin (Ecotrin) 81 mg PO DAILY [facility] Last Admin: 03/15/17 10:06 Dose: Not Given Doxazosin Mesylate (Cardura) 4 mg PO DAILY [facility] Last Admin: 03/15/17 10:06 Dose: Not Given Furosemide (Lasix) 40 mg PO DAILY [facility] Last Admin: 03/15/17 10:06 Dose: Not Given Glipizide (Glucotrol) 10 mg PO BID [facility] Last Admin: 03/15/17 10:06 Dose: Not Given Home Med (Patient's Own Medication) 1 tab PO DAILY [facility] Last Admin: 03/15/17 10:06 Dose: Not Given Hydromorphone HCl (Dilaudid) 0.5 mg IVP Q5M PRN PRN Reason: Pain, moderate (4-7) Piperacillin Sod/Tazobactam (Sod 3.375 gm/ Sodium Chloride) 100 mls @ 200 mls/ hr IVPB Q8H [facility] Last Admin: 03/15/17 13:38 Dose: 200 mls/hr Vancomycin HCl 1 gm/ Sodium (Chloride) 250 mls @ 166.7 mls/hr IVPB Q24H [facility] Last Admin: 03/14/17 21:54 Dose: 166.7 mls/hr Insulin Human Regular (Novolin R) 0 unit SC ACHS [facility] PRN Reason: Protocol Last Admin: 03/15/17 12:22 Dose: 3 unit Lisinopril (Zestril) 2.5 mg PO DAILY [facility] Last Admin: 03/15/17 10:06 Dose: Not Given Metformin HCl (Glucophage) 1,000 mg PO BID [facility] Last Admin: 03/15/17 10:06 Dose: Not Given Ondansetron HCl (Zofran Inj) 4 mg IVP ONCE PRN PRN Reason: Nausea/Vomiting Stop: 03/15/17 13:56 Tamsulosin HCl (Flomax) 0.4 mg PO DAILY [facility] Last Admin: 03/15/17 10:06 Dose: Not Given Ticagrelor (Brilinta) 90 mg PO BID [facility] Last Admin: 03/15/17 10:06 Dose: Not Given Tramadol HCl (Ultram) 50 mg PO TID PRN PRN Reason: pain - Labs Labs: 03/13/17 07:45 03/13/17 07:45
--- NOTE | 2017-03-15 15:58 | CP.PCM.PN ---
Subjective - Date & Time of Evaluation Date of Evaluation: 03/15/17 Time of Evaluation: 15:58 - Subjective Subjective: AFEBRILE S/P 2ND I & D TODAY 03/15/17 +VE DRESSING IN PLACE C/D/I s/p PICC LINE 03/13/17 s/p I & D LLE/ANKLE IN OR. 03/09/17 ROS. HEENT : N. Resp : No cough, wheezing ,pleuritic CP ,or hemoptysis Cardio : No anginal CP, PND, orthopnea, palpitation GI : No abd.pain, n/v ,diarrhea or GI bleeding . 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 Musculoskel : No joint swelling , Derm : No rash Psych : Normal affect. Ext : LLE /ANKLE +VE DRESSING , +VE calf pain PE. Pt. is alert awake in no distress. V.S As noted in the chart Head ,ear nose,throat and eyes : Normal. Neck : Supple with normal carotids. Lungs: Clear air entry. Heart : S1 & S2 normal with S4. No murmur. Abd : Soft non tender with normal bowel sounds. Neuro : Moves all ext. with no localized deficit. Ext : LEFT LEG S/P I & D . DRESSING IN PLACE,sattellite crusting leisions on the left foot seen but drying up S/P I & D 03/09/17 Derm : No rashes or decubitus ulcer. LABS/RADIOLOGY: 03/10/17 vANCO TROUGH 13.1 OK. WOUND CULTURE -VE GROWTH FOR 48HRS HOURS. bone scan +ve cellulitis without osseous process. ESR 58 CREAT1.3, BUN18 lfts N REPEAT URINE CULTURE -VE URINE CULTURE +VE staph aureus more than 100,000 colonies per mL. (MSSA ) Blood cultures -ve to date Objective - Vital Signs/Intake and Output Vital Signs (last 24 hours): Temp Pulse Resp BP Pulse Ox 97.6 F 88 18 126/68 97 03/15/17 12:30 03/15/17 12:30 03/15/17 12:30 03/15/17 12:30 03/15/17 12:30 Intake and Output: 03/15/17 03/15/17 06:59 18:59 Intake Total 800 440 Output Total 500 Balance 300 440 - Medications Medications: Current Medications Aspirin (Ecotrin) 81 mg PO DAILY [facility] Last Admin: 03/15/17 13:50 Dose: 81 mg Doxazosin Mesylate (Cardura) 4 mg PO DAILY [facility] Last Admin: 03/15/17 10:06 Dose: Not Given Furosemide (Lasix) 40 mg PO DAILY [facility] Last Admin: 03/15/17 10:06 Dose: Not Given Glipizide (Glucotrol) 10 mg PO BID [facility] Last Admin: 03/15/17 10:06 Dose: Not Given Home Med (Patient's Own Medication) 1 tab PO DAILY [facility] Last Admin: 03/15/17 14:03 Dose: 1 tab Hydromorphone HCl (Dilaudid) 0.5 mg IVP Q5M PRN PRN Reason: Pain, moderate (4-7) Piperacillin Sod/Tazobactam (Sod 3.375 gm/ Sodium Chloride) 100 mls @ 200 mls/ hr IVPB Q8H [facility] Last Admin: 03/15/17 13:38 Dose: 200 mls/hr Vancomycin HCl 1 gm/ Sodium (Chloride) 250 mls @ 166.7 mls/hr IVPB Q24H [facility] Last Admin: 03/14/17 21:54 Dose: 166.7 mls/hr Insulin Human Regular (Novolin R) 0 unit SC ACHS [facility] PRN Reason: Protocol Last Admin: 03/15/17 12:22 Dose: 3 unit Lisinopril (Zestril) 2.5 mg PO DAILY [facility] Last Admin: 03/15/17 13:49 Dose: 2.5 mg Metformin HCl (Glucophage) 1,000 mg PO BID [facility] Last Admin: 03/15/17 10:06 Dose: Not Given Tamsulosin HCl (Flomax) 0.4 mg PO DAILY [facility] Last Admin: 03/15/17 13:50 Dose: 0.4 mg Ticagrelor (Brilinta) 90 mg PO BID [facility] Last Admin: 03/15/17 10:06 Dose: Not Given Tramadol HCl (Ultram) 50 mg PO TID PRN PRN Reason: pain - Labs Labs: 03/13/17 07:45 03/13/17 07:45 Assessment and Plan (1) Cellulitis and abscess of foot Assessment & Plan: S/P REPEAT DEBRIDEMENT BY SURGERY. S/P PICC . AWAITING KIEL PLACEMENT ON IV ABX . CASE DISCUSSED WITH SHELIA Rivas ON DISCHARGE PT TO GET IV ROCEPHIN 1 GM IV Q12 HRLY X 2 WEEKS. LWC PER SURGERY. Status: Acute (2) Non-healing ulcer of lower leg Assessment & Plan: F/U DOPPLERS ARTERIAL STUDIES. Status: Acute (3) CAD (coronary artery disease) Status: Acute (4) Diabetes mellitus Status: Acute (5) Renal insufficiency Status: Acute (6) UTI (urinary tract infection) Assessment & Plan: REPEAT URINE CULTURES NEGATIVE. oN iv ANTIBIOTICS. Status: Acute
--- NOTE | 2017-03-15 16:16 | CP.PCM.PN ---
Subjective - Date & Time of Evaluation Date of Evaluation: 03/15/17 Time of Evaluation: 16:13 - Subjective Subjective: 71 Y/O MALE SEEN AND EXAMINED TODAY BY DR KING AND DR RUSSELL, DENIES ANY CP, SOB , SOB, RESP EASY AND UNLABORED, NAD. Objective - Vital Signs/Intake and Output Vital Signs (last 24 hours): Temp Pulse Resp BP Pulse Ox 97.6 F 88 18 126/68 97 03/15/17 12:30 03/15/17 12:30 03/15/17 12:30 03/15/17 12:30 03/15/17 12:30 Intake and Output: 03/15/17 03/15/17 06:59 18:59 Intake Total 800 440 Output Total 500 Balance 300 440 - Medications Medications: Current Medications Aspirin (Ecotrin) 81 mg PO DAILY [facility] Last Admin: 03/15/17 13:50 Dose: 81 mg Doxazosin Mesylate (Cardura) 4 mg PO DAILY [facility] Last Admin: 03/15/17 10:06 Dose: Not Given Furosemide (Lasix) 40 mg PO DAILY [facility] Last Admin: 03/15/17 10:06 Dose: Not Given Glipizide (Glucotrol) 10 mg PO BID [facility] Last Admin: 03/15/17 10:06 Dose: Not Given Home Med (Patient's Own Medication) 1 tab PO DAILY [facility] Last Admin: 03/15/17 14:03 Dose: 1 tab Hydromorphone HCl (Dilaudid) 0.5 mg IVP Q5M PRN PRN Reason: Pain, moderate (4-7) Piperacillin Sod/Tazobactam (Sod 3.375 gm/ Sodium Chloride) 100 mls @ 200 mls/ hr IVPB Q8H [facility] Last Admin: 03/15/17 13:38 Dose: 200 mls/hr Vancomycin HCl 1 gm/ Sodium (Chloride) 250 mls @ 166.7 mls/hr IVPB Q24H [facility] Last Admin: 03/14/17 21:54 Dose: 166.7 mls/hr Insulin Human Regular (Novolin R) 0 unit SC ACHS [facility] PRN Reason: Protocol Last Admin: 03/15/17 12:22 Dose: 3 unit Lisinopril (Zestril) 2.5 mg PO DAILY [facility] Last Admin: 03/15/17 13:49 Dose: 2.5 mg Metformin HCl (Glucophage) 1,000 mg PO BID [facility] Last Admin: 03/15/17 10:06 Dose: Not Given Tamsulosin HCl (Flomax) 0.4 mg PO DAILY [facility] Last Admin: 03/15/17 13:50 Dose: 0.4 mg Ticagrelor (Brilinta) 90 mg PO BID [facility] Last Admin: 03/15/17 10:06 Dose: Not Given Tramadol HCl (Ultram) 50 mg PO TID PRN PRN Reason: pain - Labs Labs: 03/13/17 07:45 03/13/17 07:45 Assessment and Plan - Assessment and Plan (Free Text) Plan: PT ADMITTED FOR CELLULITIS AND ABSCESS OF FOOT, WOUND DEBRIDEMENT DONE BY DR ESCALANTE TODAY D/C TO [facility] PER DR KING IV ABX ON DISCHARGE PT TO GET IV ROCEPHIN 1 GM IV Q12 HRLY X 2 WEEKS - PER DR RUSSELL PICC LINE CARE PER FACILITY PROTOCOL
[2017-03-15 16:29] VITALS: BP 121/65; PULSE 70; RESP 20; TEMP 98.1; O2SAT 96
--- NOTE | 2017-03-15 20:11 | OP ---
PROCEDURE DATE: 03/15/2017 PREOPERATIVE DIAGNOSIS: Abscess and necrosis of wound of the left ankle. POSTOPERATIVE DIAGNOSIS: Abscess and necrosis of wound of the left ankle. PROCEDURE PERFORMED: Redraining, incision, abscess, and debridement of wound of left ankle. SURGEON: Dr. Ulloa. ANESTHESIA: General. BLOOD LOSS: 20 mL. POSTOP CONDITION: Stable. INDICATIONS FOR SURGERY: This is a 71-year-old male who underwent incision and drainage of an abscess of his left ankle, who now underwent postop necrosis of the wound, now taken back to the OR for debridement. CLOSE FINDINGS: There was a fair amount of necrotic tissue where the patient's wound was debrided all the way back to good clean tissue. Pulse irrigation was carried out at the conclusion of the procedure. PROCEDURE: The patient was taken to the operating room, IV sedation was administered. The left ankle was prepped and draped and local anesthesia was then administered. The wound was aggressively, sharply debrided of all necrotic tissue. Any remaining collections were drained and cultured. Bleeding was controlled using the Bovie and exposed blood vessel was repaired and partial closure was performed at the periphery. Central was packed open with saline gauze. The patient tolerated the procedure well, returned to the recovery room in stable condition. Abel Ulloa MD
--- NOTE | 2017-03-16 13:08 | CP.PCM.DIS ---
Provider - Provider Date of Admission: 03/09/17 15:10 Attending physician: Peri Vyas MD Time Spent in preparation of Discharge (in minutes): 30 Hospital Course - Lab Results Lab Results: Micro Results 03/15/17 Unknown Ankle - Left Gram Stain - Final 03/15/17 Unknown Ankle - Left Wound Culture - Preliminary NO GROWTH AFTER 24 HOURS 03/10/17 Unknown Urine Urine Culture - Final No Growth (<1,000 CFU/ML) 03/09/17 Unknown Naris MRSA Culture (Admit) - Final MRSA NOT DETECTED Most Recent Lab Values WBC 7.6 K/uL (4.8-10.8) 03/13/17 07:45 RBC 3.26 Mil/uL (4.40-5.90) L 03/13/17 07:45 Hgb 10.2 g/dL (12.0-18.0) L 03/13/17 07:45 Hct 29.7 % (35.0-51.0) L 03/13/17 07:45 MCV 90.9 fL (80.0-94.0) 03/13/17 07:45 MCH 31.3 pg (27.0-31.0) H 03/13/17 07:45 MCHC 34.4 g/dL (33.0-37.0) 03/13/17 07:45 RDW 13.9 % (11.5-14.5) 03/13/17 07:45 Plt Count 211 K/uL (130-400) 03/13/17 07:45 MPV 9.0 fL (7.2-11.7) 03/13/17 07:45 Neut % (Auto) 50.7 % (50.0-75.0) 03/13/17 07:45 Lymph % (Auto) 25.0 % (20.0-40.0) 03/13/17 07:45 Floyd % (Auto) 6.7 % (0.0-10.0) 03/13/17 07:45 Eos % (Auto) 16.5 % (0.0-4.0) H 03/13/17 07:45 Baso % (Auto) 1.1 % (0.0-2.0) 03/13/17 07:45 Neut # 3.8 K/uL (1.8-7.0) 03/13/17 07:45 Lymph # 1.9 K/uL (1.0-4.3) 03/13/17 07:45 Floyd # 0.5 K/uL (0.0-0.8) 03/13/17 07:45 Eos # 1.3 K/uL (0.0-0.7) H 03/13/17 07:45 Baso # 0.1 K/uL (0.0-0.2) 03/13/17 07:45 Neutrophils % (Manual) 87 % (50-75) H 03/08/17 06:44 Lymphocytes % (Manual) 8 % (20-40) L 03/08/17 06:44 Monocytes % (Manual) 2 % (0-10) 03/08/17 06:44 Eosinophils % (Manual) 3 % (0-4) 03/08/17 06:44 Platelet Estimate Normal (NORMAL) 03/08/17 06:44 RBC Morphology Normal 03/08/17 06:44 ESR 58 mm/hr (0-15) H 03/08/17 06:44 Puncture Site Na 03/07/17 09:03 pO2 20 mm/Hg (30-55) L 03/07/17 09:15 Ed Test Na 03/07/17 09:03 VBG pH 7.32 (7.32-7.43) 03/07/17 09:15 VBG pCO2 47 mmHg (40-60) 03/07/17 09:15 VBG HCO3 21.3 mmol/L 03/07/17 09:15 VBG Total CO2 25.6 mmol/L (22-28) 03/07/17 09:15 VBG O2 Sat (Calc) 36.0 % (40-65) L 03/07/17 09:15 VBG Base Excess -2.2 mmol/L (0.0-2.0) L 03/07/17 09:15 VBG Potassium 4.5 mmol/L (3.6-5.2) 03/07/17 09:15 Sodium 136.0 mmol/l (132-148) 03/07/17 09:15 Chloride 99.0 mmol/L (98-107) 03/07/17 09:15 Glucose 289 mg/dl (75-110) H 03/07/17 09:15 Lactate 1.8 mmol/L (0.7-2.1) 03/07/17 09:15 Sodium 139 mmol/L (132-148) 03/13/17 07:45 Potassium 4.2 mmol/L (3.6-5.2) 03/13/17 07:45 Chloride 98 mmol/L (98-107) 03/13/17 07:45 Carbon Dioxide 27 mmol/L (22-30) 03/13/17 07:45 Anion Gap 18 (10-20) 03/13/17 07:45 BUN 18 mg/dL (9-20) 03/13/17 07:45 Creatinine 1.3 MG/DL (0.8-1.5) 03/13/17 07:45 Est GFR ( Amer) > 60 03/13/17 07:45 Est GFR (Non-Af Amer) 55 03/13/17 07:45 POC Glucose (mg/dL) 303 mg/dL (65-110) H 03/15/17 20:49 Random Glucose 99 mg/dL (75-110) 03/13/17 07:45 Calcium 9.0 mg/dl (8.6-10.4) 03/13/17 07:45 Phosphorus 4.0 mg/dL (2.5-4.5) 03/07/17 09:07 Magnesium 1.4 mg/dL (1.6-2.3) L 03/07/17 09:07 Total Bilirubin 0.6 mg/dL (0.2-1.3) 03/13/17 07:45 Direct Bilirubin 0.4 mg/dL (0.0-0.4) 03/08/17 06:44 AST 36 U/L (17-59) 03/13/17 07:45 ALT 37 U/L (21-72) 03/13/17 07:45 Alkaline Phosphatase 54 U/L (38-126) 03/13/17 07:45 C-React Prot High Sens 4.37 mg/L (1.00-3.00) H 03/08/17 06:44 Total Protein 6.9 g/dL (6.3-8.3) 03/13/17 07:45 Albumin 3.8 g/dL (3.5-5.0) 03/13/17 07:45 Globulin 3.1 gm/dL (2.2-3.9) 03/13/17 07:45 Albumin/Globulin Ratio 1.2 (1.0-2.1) 03/13/17 07:45 Venous Blood Potassium 4.5 mmol/L (3.6-5.2) 03/07/17 09:15 Urine Color Straw (YELLOW) 03/10/17 22:55 Urine Clarity Clear (Clear) 03/10/17 22:55 Urine pH 5.0 (5.0-8.0) 03/10/17 22:55 Ur Specific [place] 1.010 (1.003-1.030) 03/10/17 22:55 Urine Protein Negative mg/dL (NEGATIVE) 03/10/17 22:55 Urine Glucose (UA) Normal mg/dL (Normal) 03/10/17 22:55 Urine Ketones Negative mg/dL (NEGATIVE) 03/10/17 22:55 Urine Blood Negative (NEGATIVE) 03/10/17 22:55 Urine Nitrate Negative (NEGATIVE) 03/10/17 22:55 Urine Bilirubin Negative (NEGATIVE) 03/10/17 22:55 Urine Urobilinogen Normal mg/dL (0.2-1.0) 03/10/17 22:55 Ur Leukocyte Esterase Neg Farhad/uL (Negative) 03/10/17 22:55 Urine WBC (Auto) < 1 /hpf (0-5) 03/10/17 22:55 Urine RBC (Auto) 1 /hpf (0-3) 03/10/17 22:55 Ur Squamous Epith Cells < 1 /hpf (0-5) 03/10/17 22:55 Urine Bacteria Rare (<OCC) 03/07/17 09:44 Vancomycin Trough 13.1 ug/mL (5.0-10.0) H 03/10/17 20:55 - Hospital Course Hospital Course: ADMITTED FOR FURTHER TREATNET FOR FOOT ULCER . PT HAD T2DM, RECENTLY WENT TO [place] AND HAD MINI STROKE AND INSERTED 2 STENTS IN CORONARIES . SUBSEQUENTLY DEVELOPED ULCER AND SWELLING OF L LEG AND REQIRED 2 WEEKS IN HOSPITAL FOR IV AB PT RETURNED TO THE STATES TO CONTINUE THERAPY . PT STILL HAS DRAINING ULCEER OF LEFT LEG WITH CELLULITIS PAST HIST. COPD/CAD/STENT/T2DM/EDEMA LEGS /RENAL INSUFFICIANCY/PROSTATE /STROKE WITH FULL RECOVERY id/surgery consulted pt had i&d with removale of pus and later debridement c/c staph aur pt transferred to rehab for 2 weeks rocephin Discharge Exam - Head Exam Head Exam: NORMAL INSPECTION Discharge Plan - Discharge Medications Prescriptions: cefTRIAXone 1 gm [Rocephin 1 gram IVPB] 1 gm IVPB Q12H 14 Days - Follow Up Plan Condition: FAIR Disposition: REHAB FACILITY/REHAB UNIT Instructions: Meal Planning with Diabetes Exchanges (DC), Chronic Wound Care ( DC), Diabetic Foot Ulcers (DC) Additional Instructions: PLEASE PLACE UNDER THE SERVICE OF DR VYAS [facility]-- CALL UPON WITH BED ASSIGNMENT AND FOR ADMITTING ORDERS CONTINUE MEDS PER MED REC FALL PRECUATIONS PER FACILITY PROTOCOL IV ROCEPHIN 1 GM IV Q 12H FOR 2 WEEKS PICC CARE PER FACILITY PROTOCOL WEEKLY CBC, CMP WHILE ON ABX Referrals: Modesta Soliz MD [Staff Provider] - Peri Vyas MD [Staff Provider] -
== END 2017-03-15 21:55 | DRG 623 ==
LOC: C.ER 08:33 → INTOOBSV 09:15 → C.9E 09:15 → C.3T 18:17 → OBSVTOIN 03-09 15:10
PROVIDERS: ADMIT Internal Medicine Cardiovascular Disease; ATTEND Internal Medicine Cardiovascular Disease
PROC: 0JBR0ZZ Excision of Left Foot Subcutaneous Tissue and Fascia, Open Approach (ICD-10-PCS; 2017-03-09)
PROC: 0HXNXZZ Transfer Left Foot Skin, External Approach (ICD-10-PCS; 2017-03-09)
PROC: 0J9R0ZZ Drainage of Left Foot Subcutaneous Tissue and Fascia, Open Approach (ICD-10-PCS; principal; 2017-03-09 11:15)
PROC: 02HV33Z Insertion of Infusion Device into Superior Vena Cava, Percutaneous Approach (ICD-10-PCS; 2017-03-13)
PROC: 0JBR0ZZ Excision of Left Foot Subcutaneous Tissue and Fascia, Open Approach (ICD-10-PCS; 2017-03-15)
PROC: 0H9NXZZ Drainage of Left Foot Skin, External Approach (ICD-10-PCS; 2017-03-15)
DX: E11.621 Type 2 diabetes mellitus with foot ulcer (principal); L97.229 Non-pressure chronic ulcer of left calf with unspecified severity; L97.329 Non-pressure chronic ulcer of left ankle with unspecified severity; J44.9 Chronic obstructive pulmonary disease, unspecified; L03.116 Cellulitis of left lower limb; L02.416 Cutaneous abscess of left lower limb; E11.622 Type 2 diabetes mellitus with other skin ulcer; E11.628 Type 2 diabetes mellitus with other skin complications; B95.61 Methicillin susceptible Staphylococcus aureus infection as the cause of diseases classified elsewhere; I10 Essential (primary) hypertension; I25.10 Atherosclerotic heart disease of native coronary artery without angina pectoris; N28.9 Disorder of kidney and ureter, unspecified; N40.0 Benign prostatic hyperplasia without lower urinary tract symptoms; H40.9 Unspecified glaucoma; Z87.01 Personal history of pneumonia (recurrent); Z95.5 Presence of coronary angioplasty implant and graft; I25.2 Old myocardial infarction; Z87.81 Personal history of (healed) traumatic fracture; Z79.4 Long term (current) use of insulin

== ENCOUNTER 2017-08-24 19:35 | Inpatient (IN) | payer MEDICARE, OTHER ==
[2017-08-24 19:35] VITALS: BMI 25.8
--- NOTE | 2017-08-24 22:12 | C.PDOC ---
History Of Present Illness Patient with a Hx of diabetes presents to the ER complaining of a large carbuncle to the back of the neck worsening over the past few days. Denies fever or chills. Time Seen by Provider: 08/24/17 22:12 Chief Complaint (Nursing): Abnormal Skin Integrity History Per: Patient History/Exam Limitations: no limitations Onset/Duration Of Symptoms: Days Current Symptoms Are (Timing): Still Present Location Of Injury: Posterior: Neck Recent travel outside of the [place]: No Past Medical History Reviewed: Historical Data, Nursing Documentation, Vital Signs Vital Signs: Last Vital Signs Temp 99.4 F 08/24/17 20:19 Pulse 111 H 08/24/17 20:19 Resp 16 08/24/17 20:19 BP 109/65 08/24/17 20:19 Pulse Ox 98 08/24/17 22:29 - Medical History PMH: Arthritis (R ARM FX; KNEE), Benign Prostatic Hyperplasia, Fractures (RIGHT ARM), HTN, Peripheral Edema, Pneumonia (1964) - [facility] Procedures DRAINAGE OF L FOOT SUBCU/FASCIA, OPEN APPROACH (03/09/17) DRAINAGE OF LEFT FOOT SKIN, EXTERNAL APPROACH (03/09/17) EXCISION OF L FOOT SUBCU/FASCIA, OPEN APPROACH (03/09/17) INSERT INDWELLING CATH (04/08/15) INSERTION OF INFUSION DEV INTO SUP VENA CAVA, PERC APPROACH (03/09/17) NONEXCIS DEBRID OF WOUND, INFECT, OR BURN (01/31/13) OTHER SKIN & SUBQ I D (01/31/13) TRANSFER LEFT FOOT SKIN, EXTERNAL APPROACH (03/09/17) VENOUS CATHETERIZATION NEC (01/31/13) Family History: States: No Known Family Hx - Social History Hx Tobacco Use: No Hx Alcohol Use: No Hx Substance Use: No - Immunization History Hx Tetanus Toxoid Vaccination: No Hx Influenza Vaccination: No Hx Pneumococcal Vaccination: No Review Of Systems Constitutional: Negative for: Fever, Chills Cardiovascular: Negative for: Chest Pain Respiratory: Negative for: Shortness of Breath Musculoskeletal: Positive for: Neck Pain Skin: Positive for: Other (carbuncle back of neck) Neurological: Negative for: Weakness Psych: Negative for: Anxiety Physical Exam - Physical Exam Appears: Non-toxic, No Acute Distress Skin: Warm, Dry Head: Normacephalic Eye(s): bilateral: Normal Inspection Oral Mucosa: Moist Neck: Supple, Other (4x6cm area of induration, erythema, and tendernesss to suprascapular area. No fluctuance.) Chest: Symmetrical, Other (1x1cm abscess to left subclavicular area.) Cardiovascular: Rhythm Regular Respiratory: Normal Breath Sounds, No Rales, No Rhonchi, No Wheezing Back: Normal Inspection Extremity: Normal ROM Pulses: Left Dorsalis Pedis: Normal, Right Dorsalis Pedis: Normal Neurological/Psych: Oriented x3 Gait: Steady ED Course And Treatment - Laboratory Results Result Diagrams: 08/24/17 22:31 08/24/17 22:31 O2 Sat by Pulse Oximetry: 98 (room air) Pulse Ox Interpretation: Normal Progress Note: Blood work ordered. Disposition Discussed With DrNancy: Peri Vyas Comment: accepted the pt on his service and took over the care at 10:53 PM Doctor Will See Patient In The: Hospital Counseled Patient/Family Regarding: Studies Performed, Diagnosis - Disposition Disposition: HOSPITALIZED Disposition Time: 22:12 Condition: FAIR Forms: [employer] ([employer]) - POA Present On Arrival: Poor Glycemic Control - Clinical Impression Clinical Impression: Diabetes mellitus, Renal insufficiency, Cellulitis, Abscess - Scribe Statement The provider has reviewed the documentation as recorded by the Scribe Ernesto Taylor All medical record entries made by the Carol Annibe were at my direction and personally dictated by me. I have reviewed the chart and agree that the record accurately reflects my personal performance of the history, physical exam, medical decision making, and the department course for this patient. I have also personally directed, reviewed, and agree with the discharge instructions and disposition. Decision To Admit - Pt Status Changed To: Hospital Disposition Of: Inpatient - Admit Certification Admit to Inpatient:: After my assessment, the patient will require hospitalization for at least two midnights. This is because of the severity of symptoms shown, intensity of services needed, and/or the medical risk in this patient being treated as an outpatient. - InPatient: Physician Admission Certification: I certify that this patient requires 2 or more midnights of care for the following reason:: After my assessment, the patient will require hospitalization for at least two midnights. This is because of the severity of symptoms shown, intensity of services needed, and/or the medical risk in this patient being treated as an outpatient. - . Bed Request Type: Regular Admitting Physician: Peri Vyas Patient Diagnosis: Diabetes mellitus, Renal insufficiency, Cellulitis, Abscess
[2017-08-24 22:34] LABS: BASO % 0.3 % (0.0-2.0); EOS # 0.2 K/uL (0.0-0.7); EOS % 1.1 % (0.0-4.0); HEMOGLOBIN 9.3 g/dL (12.0-18.0); LYMPH # 1.4 K/uL (1.0-4.3); LYMPH % 10.3 % (20.0-40.0); MEAN CELL VOLUME 90.2 fL (80.0-94.0); MEAN CORPUSCULAR HEMOGLOBIN 29.9 pg (27.0-31.0); MEAN CORPUSCULAR HGB CONC 33.2 g/dL (33.0-37.0); MEAN PLATELET VOLUME 8.6 fL (7.2-11.7); MONO # 1.2 K/uL (0.0-0.8); MONO % 8.9 % (0.0-10.0); NEUT # 10.7 K/uL (1.8-7.0); NEUT % 79.4 % (50.0-75.0); RBC 3.12 Mil/uL (4.40-5.90); RED CELL DISTRIBUTION WIDTH 12.8 % (11.5-14.5)
[2017-08-24 22:35] LABS: WHITE BLOOD COUNT 13.5 K/uL (4.8-10.8)
[2017-08-24 22:42] LABS: INR 1.1; PROTHROMBIN TIME 12.6 SECONDS (9.7-12.2)
[2017-08-24 22:47] LABS: ALB/GLOB RATIO 1.2 (1.0-2.1); ALT/SGPT 13 U/L (21-72); AST/SGOT 16 U/L (17-59); BLOOD UREA NITROGEN 40 mg/dL (9-20); CALCIUM 8.1 mg/dl (8.6-10.4); GFR AFRICAN-AMERICAN 40; GFR NON-AFRICAN AMERICAN 33
[2017-08-24] MEDS ORDERED: ceFAZolin IV 2 gm in Dextrose 2 GM/50 ML BAG IVPB ONE (23:00)
[2017-08-24] MEDS ORDERED: Vancomycin 1 GM 1 GM/250 ML BAG IVPB SCH (23:00)
[2017-08-24] MEDS ORDERED: Vancomycin 1 gm/NS 200 ml 1 GM/200 ML BAG IVPB ONE (23:30)
--- NOTE | 2017-08-24 23:36 | CP.PCM.CON ---
History of Present Illness - History of Present Illness History of Present Illness: INFECTIOUS DISEASE CONSULT; HPI; 72-year-old male with Hx of diabetes, CAD WITH STENT presents to the ER 08/24/17 complaining of a large carbuncle to the back of the neck worsening over the past few days. Denies fever or chills. patient was appropriately Cultured and started on IV cefazolin 2 g 1 dose and vancomycin 1 g in the ER. Patient also was found to have leukocytosis with WBC count of 13.5. Patient has mild renal insufficiency with creatinine of 2 and BUN of 40. Infectious disease consultation question by PMD for further evaluation and treatment of carbuncle the back of the neck. PMH: Arthritis (R ARM FX; KNEE), Benign Prostatic Hyperplasia, Fractures (RIGHT ARM), HTN, Peripheral Edema, Pneumonia (1965) HX LEFT LE MSSA ABSCESS/ULCER FEBRUARY 2017. - [facility] Procedures DRAINAGE OF L FOOT SUBCU/FASCIA, OPEN APPROACH (03/09/17) DRAINAGE OF LEFT FOOT SKIN, EXTERNAL APPROACH (03/09/17) EXCISION OF L FOOT SUBCU/FASCIA, OPEN APPROACH (03/09/17) INSERT INDWELLING CATH (04/08/15) INSERTION OF INFUSION DEV INTO SUP VENA CAVA, PERC APPROACH (03/09/17) NONEXCIS DEBRID OF WOUND, INFECT, OR BURN (01/31/13) OTHER SKIN & SUBQ I D (01/31/13) TRANSFER LEFT FOOT SKIN, EXTERNAL APPROACH (03/09/17) VENOUS CATHETERIZATION NEC (01/31/13) Family History: States: No Known Family Hx - Social History Hx Tobacco Use: No Hx Alcohol Use: No Hx Substance Use: No - Immunization History Hx Tetanus Toxoid Vaccination: No Hx Influenza Vaccination: No Hx Pneumococcal Vaccination: No ALLERGY;SHELLFISH, TETANUS TOXOID-ADSORBED. Review of Systems - Constitutional Constitutional: Fever (subjective). absent: Headache, Lethargy - EENT Eyes: absent: Blurred Vision, Other Visual Disturbances Nose/Mouth/Throat: absent: Dry Mouth - Cardiovascular Cardiovascular: absent: Chest Pain, Leg Edema - Respiratory Respiratory: absent: Cough - Gastrointestinal Gastrointestinal: absent: Constipation, Diarrhea, Nausea, Vomiting - Genitourinary Genitourinary: absent: Difficulty Urinating, Dysuria - Musculoskeletal Musculoskeletal: Neck Pain - Integumentary Integumentary: Lesions (upper back,2 satellite leison on anterior chest,and 1 on scalp.) - Neurological Neurological: absent: Headaches - Hematologic/Lymphatic Hematologic: As Per HPI. absent: Easy Bruising, Lymphadenopathy Past Patient History - Infectious Disease Hx of Infectious Diseases: None - Past Medical History & Family History Past Medical History?: Yes - Past Social History Smoking Status: Never Smoked - CARDIAC Hx Hypertension: Yes Hx Peripheral Edema: Yes - PULMONARY Hx Pneumonia: Yes (1965) - NEUROLOGICAL Hx Neurological Disorder: No - HEENT Hx HEENT Problems: Yes Hx Glaucoma: Yes - RENAL Hx Chronic Kidney Disease: No - ENDOCRINE/METABOLIC Hx Endocrine Disorders: Yes Hx Diabetes Mellitus Type 2: Yes - HEMATOLOGICAL/ONCOLOGICAL Hx Blood Disorders: No - INTEGUMENTARY Hx Dermatological Problems: Yes (PRURITIS) Other/Comment: Mass of neck/scalp - MUSCULOSKELETAL/RHEUMATOLOGICAL Hx Arthritis: Yes (R ARM FX; KNEE) Hx Fractures: Yes (RIGHT ARM) - GASTROINTESTINAL Hx Gastrointestinal Disorders: No - GENITOURINARY/GYNECOLOGICAL Hx Genitourinary Disorders: Yes Hx Prostate Problems: Yes - PSYCHIATRIC Hx Substance Use: No - SURGICAL HISTORY Hx Surgeries: Yes Hx Cardiac Catheterization: Yes Hx Orthopedic Surgery: Yes (RIGHT SHOULDER) Other/Comment: CYST FROM BUTTOCKS, prostate bx - ANESTHESIA Hx Anesthesia: Yes Hx Anesthesia Reactions: No Hx Malignant Hyperthermia: No Meds Allergies/Adverse Reactions: Allergies Allergy/AdvReac Type Severity Reaction Status Date / Time shellfish derived Allergy Verified 08/24/17 20:29 tetanus toxoid, adsorbed Allergy RASH Verified 08/24/17 20:29 - Medications Medications: Current Medications Aspirin (Ecotrin) 81 mg PO DAILY [facility] Clotrimazole (Lotrimin 1%) gm EXT TID [facility] Doxazosin Mesylate (Cardura) 4 mg PO DAILY [facility] Furosemide (Lasix) 40 mg PO DAILY [facility] Glipizide (Glucotrol) 10 mg PO BID [facility] Home Med (Betamethasone Dip 0.05% [Diprolene]) 0.05 % TP DAILY [facility] Home Med (Dutasteride [Avodart]) 0.5 mg PO DAILY [facility] Home Med (Lovastatin [Lovastatin]) 40 mg PO DAILY [facility] Home Med (Metformin [Glucophage]) 1,000 mg PO BID [facility] Vancomycin/Sodium Chloride (Vancomycin 1 Gm/Ns 200 Ml) 1 gm in 200 mls @ 133 mls/hr IVPB ONCE ONE Stop: 08/25/17 01:00 Insulin Human Regular (Novolin R) 0 unit SC ACHS [facility] PRN Reason: Protocol Lisinopril (Zestril) 2.5 mg PO DAILY [facility] Tamsulosin HCl (Flomax) 0.4 mg PO DAILY [facility] Ticagrelor (Brilinta) 90 mg PO BID [facility] Physical Exam - Constitutional Appears: No Acute Distress - Head Exam Head Exam: NORMAL INSPECTION - Eye Exam Eye Exam: EOMI, PERRL - ENT Exam ENT Exam: Normal Oropharynx - Neck Exam Neck exam: Positive for: Normal Inspection (one small leison on the scalp.). Negative for: Meningismus (abscess neck on the upper back draining yellowish pus with 2 small sattelite leisos ant chest.) - Respiratory Exam Respiratory Exam: Clear to Auscultation Bilateral, NORMAL BREATHING PATTERN - Cardiovascular Exam Cardiovascular Exam: Tachycardia, +S1, +S2 - GI/Abdominal Exam GI & Abdominal Exam: Normal Bowel Sounds, Soft - Extremities Exam Extremities exam: Negative for: calf tenderness, pedal edema - Neurological Exam Neurological exam: Alert, CN II-XII Intact, Oriented x3 - Psychiatric Exam Psychiatric exam: Normal Mood - Skin Skin Exam: Normal Color, Warm Results - Vital Signs Recent Vital Signs: Last Vital Signs Temp 99.4 F 08/24/17 20:19 Pulse 111 H 08/24/17 20:19 Resp 16 08/24/17 20:19 BP 109/65 08/24/17 20:19 Pulse Ox 98 08/24/17 22:54 - Labs Result Diagrams: 08/25/17 06:55 08/25/17 06:55 Labs: Laboratory Results - last 24 hr 08/24/17 08/24/17 08/24/17 22:31 22:31 22:31 WBC 13.5 H D RBC 3.12 L Hgb 9.3 L Hct 28.1 L MCV 90.2 MCH 29.9 MCHC 33.2 RDW 12.8 Plt Count 257 MPV 8.6 Neut % (Auto) 79.4 H Lymph % (Auto) 10.3 L [place] % (Auto) 8.9 Eos % (Auto) 1.1 Baso % (Auto) 0.3 Neut # 10.7 H Lymph # 1.4 [place] # 1.2 H Eos # 0.2 Baso # 0.0 PT 12.6 H INR 1.1 APTT 30 Sodium 124 L Potassium 5.2 Chloride 90 L Carbon Dioxide 22 Anion Gap 17 BUN 40 H Creatinine 2.0 H Est GFR ( Amer) 40 Est GFR (Non-Af Amer) 33 Random Glucose 297 H Calcium 8.1 L Total Bilirubin 0.7 AST 16 L ALT 13 L D Alkaline Phosphatase 61 Total Protein 7.4 Albumin 4.0 Globulin 3.4 Albumin/Globulin Ratio 1.2 Serum Ketones Negative Assessment & Plan (1) Carbuncle, neck Status: Acute (2) Abscess of multiple sites Status: Acute (3) Cellulitis Status: Acute (4) Diabetes mellitus Status: Chronic (5) Renal insufficiency Status: Chronic - Assessment and Plan (Free Text) Assessment: PLAN; PANCULTURES. CULTURE ABSCESS NECK MRSA SCREEN. PATIENT GOT 1 DOSE OF CEFAZOLIN 2 G IN ER. PATIENT GOT 1 DOSE OF VANCOMYCIN 1 G IN THE ER. START iv ROCEPHIN 1 G DAILY DAILY 08/24/17. START iv CLEOCIN 300 MG iv PIGGYBACK EVERY 6 HOURLY FOR MRSA.08/24/17. fOLLOW-UP CULTURES TO ADJUST ANTIBIOTICS. LWC
[2017-08-24] MEDS ORDERED: ceFAZolin 1 gm FROZEN Premix 1 GM/50 ML ML IVPB ONE (23:45)
[2017-08-25] MEDS: Clindamycin 300 MG in Sodium Chloride 0.9% 50 ML IVPB SCH ×2 (00:14→06:00)
[2017-08-25] MEDS ORDERED: Tramadol 25 mg PO ONE (05:26)
[2017-08-25 07:38] LABS: BASO # 0.1 K/uL (0.0-0.2); BASO % 0.5 % (0.0-2.0); EOS # 0.3 K/uL (0.0-0.7); EOS % 2.3 % (0.0-4.0); HEMOGLOBIN 8.9 g/dL (12.0-18.0); LYMPH # 0.9 K/uL (1.0-4.3); LYMPH % 7.2 % (20.0-40.0); MEAN CELL VOLUME 90.7 fL (80.0-94.0); MEAN CORPUSCULAR HEMOGLOBIN 31.2 pg (27.0-31.0); MEAN CORPUSCULAR HGB CONC 34.4 g/dL (33.0-37.0); MEAN PLATELET VOLUME 9.1 fL (7.2-11.7); NEUT # 9.8 K/uL (1.8-7.0); PLATELET COUNT 200 K/uL (130-400); RBC 2.87 Mil/uL (4.40-5.90); RED CELL DISTRIBUTION WIDTH 12.7 % (11.5-14.5); WHITE BLOOD COUNT 11.9 K/uL (4.8-10.8)
[2017-08-25 07:40] LABS: ALB/GLOB RATIO 1.1 (1.0-2.1); ALBUMIN 3.4 g/dL (3.5-5.0); CALCIUM 7.8 mg/dl (8.6-10.4)
[2017-08-25] MEDS: (Novolin R) Insulin Human Regular 100 units/ml vial SC SCH ×4 (07:46→22:12)
[2017-08-25] MEDS: Lactobacillus Acidophilus 500 MU Cap PO SCH ×2 (09:47→17:38)
[2017-08-25] MEDS ORDERED: LOVASTATIN 40 MG PO SCH (10:00)
[2017-08-25] MEDS ORDERED: BETAMETHASONE DIP 0.05% TP SCH (10:00)
[2017-08-25] MEDS ORDERED: DUTASTERIDE 0.5 MG PO SCH (10:00)
[2017-08-25] MEDS ORDERED: GlipiZIDE 2.5 mg Tab PO SCH (10:00)
[2017-08-25] MEDS ORDERED: Home Med 1 UNIT (Metformin [Glucophage] 1,000 MG) PO SCH (10:00)
[2017-08-25 10:18] LABS: EOSINOPHIL 3 % (0-4); LYMPHOCYTE 3 % (20-40); MONOCYTE 5 % (0-10); NEUTROPHIL 89 % (50-75); TOTAL CELLS COUNTED 100
[2017-08-25 10:19] LABS: PLATELET ESTIMATE NORMAL (NORMAL)
[2017-08-25] MEDS: DUTASTERIDE 0.5 MG PO SCH (10:43)
[2017-08-25] MEDS: Betamethasone Valerate 0.1% Lotion (60 ml) TOP SCH (10:44)
[2017-08-25] MEDS: Clotrimazole 1% Cream 15 GM TUBE EXT SCH ×3 (10:45→18:11)
--- NOTE | 2017-08-25 13:50 | CP.PCM.HP ---
History of Present Illness - History of Present Illness History of Present Illness: PRESENTED TO [facility] OFFICE WITH ABSCESS IN NECK FEW DAYS PT HAS PAIN AND SWELLING IN THE NAPE MILD PURULENT DISCHARGE NO FEVER THE SWELLING INCREASED IN SIZE A/W SEVERE PAIN THERE WAS ALSO 2 SATELLITE LESIONS ON CHEST PT ADMITTED FOR CARBANCLE WITH T2DM PH. 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 HTN COPD PROSTATE HYPER Present on Admission - Present on Admission Any Indicators Present on Admission: No Review of Systems - Constitutional Constitutional: Chills, Fatigue, Malaise - EENT Eyes: absent: As Per HPI, Blind Spots, Blurred Vision, Change in Vision, Decreased Night Vision, Diplopia, Discharge, Dry Eye, Exophthalmos, Floaters, Irritation, Itchy Eyes, Loss of Peripheral Vision, Pain, Photophobia, Requires Corrective Lenses, Sees Flashes, Spots in Vision, Tunnel Vision, Other Visual Disturbances, Loss of Vision, Other Ears: absent: As Per HPI, Decreased Hearing, Ear Discharge, Ear Pain, Tinnitus, Abnormal Hearing, Disequilibrium, Dizziness, Other Nose/Mouth/Throat: absent: As Per HPI, Epistaxis, Nasal Congestion, Nasal Discharge, Nasal Obstruction, Nasal Trauma, Nose Pain, Post Nasal Drip, Sinus Pain, Sinus Pressure, Bleeding Gums, Change in Voice, Dental Pain, Dry Mouth, Dysphagia, Halitosis, Hoarsness, Lip Swelling, Mouth Lesions, Mouth Pain, Odynophagia, Sore Throat, Throat Swelling, Tongue Swelling, Facial Pain, Neck Pain, Neck Mass, Other - Cardiovascular Cardiovascular: absent: As Per HPI, Acrocyanosis, Chest Pain, Chest Pain at Rest , Chest Pain with Activity, Claudication, Diaphoresis, Dyspnea, Dyspnea on Exertion, Edema, Irregular Heart Rhythm, Pain Radiating to Arm/Neck/Jaw, Leg Edema, Leg Ulcers, Lightheadedness, Orthopnea, Palpitations, Paroxysmal Nocturnal Dyspnea, Pedal Edema, Radiating Pain, Rapid Heart Rate, Slow Heart Rate, Syncope, Other - Respiratory Respiratory: absent: As Per HPI, Cough, Dyspnea, Hemoptysis, Dyspnea on Exertion , Wheezing, Snoring, Stridor, Pain on Inspiration, Chest Congestion, Excessive Mucous Production, Change in Mucous Color, Pain with Coughing, Other - Gastrointestinal Gastrointestinal: absent: As Per HPI, Abdominal Pain, Belching, Bloating, Change in Bowel Habits, Change in Stool Character, Coffee Ground Emesis, Constipation, Cramping, Diarrhea, Dyspepsia, Dysphagia, Early Satiety, Excessive Flatus, Fecal Incontinence, Heartburn, Hematemesis, Hematochezia, Loose Stools, Melena, Nausea, Odynophagia, Temesmus, Vomiting, Other - Genitourinary Genitourinary: absent: As Per HPI, Change in Urinary Stream, Difficulty Urinating, Dysuria, Flank Pain, Hematuria, Pyuria, Nocturia, Urinary Incontinence, Urinary Frequency, Urinary Hesitance, Urinary Urgency, Voiding Freq/Small Amts, Freq UTI, Hx Renal/Bladder Calculi, Hx /Renal Surgery, Bladder Distension, Other - Musculoskeletal Musculoskeletal: absent: As Per HPI, Abnormal Gait, Arthralgias, Atrophy, Back Pain, Deformity, Joint Swelling, Limited Range of Motion, Loss of Height, Muscle Cramps, Muscle Weakness, Myalgias, Neck Pain, Numbness, Radiating Pain into Limb, Stiffness, Tingling, Other - Integumentary Integumentary: Furuncle, Sores, Wounds - Neurological Neurological: absent: As Per HPI, Abnormal Gait, Abnormal Hearing, Abnormal Movements, Abnormal Speech, Behavioral Changes, Burning Sensations, Confusion, Convulsions, Disequilibrium, Dizziness, Numbness, Focal Weakness, Frequent Falls , Headaches, Lack of Coordination, Loss of Vision, Memory Loss, Paresthesias, Radicular Pain, Restless Legs, Sensory Deficit, Syncope, Tingling, Tremor, Vertigo, Weakness, Other Visual Disturbances, Other - Endocrine Endocrine: absent: As Per HPI, Change in Body Appearance, Change in Libido, Cold Intolorance, Deepening of Voice, Excessive Sweating, Fatigue, Flushing, Heat Intolorance, Increase in Ring/Shoe/Hat Size, Palpitations, Polydipsia, Polyphagia, Polyuria, Other - Hematologic/Lymphatic Hematologic: absent: As Per HPI, Easy Bleeding, Easy Bruising, Lymphadenopathy, Other Past Patient History - Infectious Disease Hx of Infectious Diseases: None - Past Medical History & Family History Past Medical History?: Yes - Past Social History Smoking Status: Never Smoked - CARDIAC Hx Hypertension: Yes Hx Peripheral Edema: Yes - PULMONARY Hx Pneumonia: Yes (1965) - NEUROLOGICAL Hx Neurological Disorder: No - HEENT Hx HEENT Problems: Yes Hx Glaucoma: Yes - RENAL Hx Chronic Kidney Disease: No - ENDOCRINE/METABOLIC Hx Endocrine Disorders: Yes Hx Diabetes Mellitus Type 2: Yes - HEMATOLOGICAL/ONCOLOGICAL Hx Blood Disorders: No - INTEGUMENTARY Hx Dermatological Problems: Yes (PRURITIS) Other/Comment: Mass of neck/scalp - MUSCULOSKELETAL/RHEUMATOLOGICAL Hx Arthritis: Yes (R ARM FX; KNEE) Hx Fractures: Yes (RIGHT ARM) - GASTROINTESTINAL Hx Gastrointestinal Disorders: No - GENITOURINARY/GYNECOLOGICAL Hx Genitourinary Disorders: Yes Hx Prostate Problems: Yes - PSYCHIATRIC Hx Substance Use: No - SURGICAL HISTORY Hx Surgeries: Yes Hx Cardiac Catheterization: Yes Hx Orthopedic Surgery: Yes (RIGHT SHOULDER) Other/Comment: CYST FROM BUTTOCKS, prostate bx - ANESTHESIA Hx Anesthesia: Yes Hx Anesthesia Reactions: No Hx Malignant Hyperthermia: No Meds Allergies/Adverse Reactions: Allergies Allergy/AdvReac Type Severity Reaction Status Date / Time shellfish derived Allergy Verified 08/24/17 20:29 tetanus toxoid, adsorbed Allergy RASH Verified 08/24/17 20:29 Physical Exam - Head Exam Head Exam: ATRAUMATIC, NORMAL INSPECTION, NORMOCEPHALIC - Eye Exam Eye Exam: EOMI, Normal appearance, PERRL Pupil Exam: NORMAL ACCOMODATION, PERRL - ENT Exam ENT Exam: Mucous Membranes Moist, Normal Exam - Neck Exam Additional comments: 2 "" DIAM INFLAMMED MASS IN THE NAPE WITH FEW [place] , YELLOW DISCOLORATION , SURROUNDING CELLULITIS AND INDURATION 2 SATELLITE LESION 1/4 " ON ANT CHEST , YELLOW WITH INDURATION - Cardiovascular Exam Cardiovascular Exam: REGULAR RHYTHM - GI/Abdominal Exam GI & Abdominal Exam: Normal Bowel Sounds, Soft. absent: Tenderness - Extremities Exam Extremities exam: Positive for: normal inspection, pedal edema - Back Exam Back exam: NORMAL INSPECTION Results - Vital Signs Recent Vital Signs: Last Vital Signs Temp 101 F H 08/25/17 08:02 Pulse 110 H 08/25/17 08:01 Resp 20 08/25/17 08:01 BP 121/69 08/25/17 09:45 Pulse Ox 96 08/25/17 08:01 - Labs Result Diagrams: 08/25/17 06:55 08/25/17 06:55 Labs: Laboratory Results - last 24 hr 08/24/17 08/24/17 08/24/17 22:31 22:31 22:31 WBC 13.5 H D RBC 3.12 L Hgb 9.3 L Hct 28.1 L MCV 90.2 MCH 29.9 MCHC 33.2 RDW 12.8 Plt Count 257 MPV 8.6 Neut % (Auto) 79.4 H Lymph % (Auto) 10.3 L [place] % (Auto) 8.9 Eos % (Auto) 1.1 Baso % (Auto) 0.3 Neut # 10.7 H Lymph # 1.4 [place] # 1.2 H Eos # 0.2 Baso # 0.0 Neutrophils % (Manual) Lymphocytes % (Manual) Monocytes % (Manual) Eosinophils % (Manual) Platelet Estimate RBC Morphology ESR PT 12.6 H INR 1.1 APTT 30 Sodium 124 L Potassium 5.2 Chloride 90 L Carbon Dioxide 22 Anion Gap 17 BUN 40 H Creatinine 2.0 H Est GFR ( Amer) 40 Est GFR (Non-Af Amer) 33 POC Glucose (mg/dL) Random Glucose 297 H Calcium 8.1 L Total Bilirubin 0.7 AST 16 L ALT 13 L D Alkaline Phosphatase 61 C-React Prot High Sens Total Protein 7.4 Albumin 4.0 Globulin 3.4 Albumin/Globulin Ratio 1.2 Triglycerides Cholesterol LDL Cholesterol Direct HDL Cholesterol Serum Ketones Negative 08/25/17 08/25/17 08/25/17 06:55 06:55 06:55 WBC 11.9 H RBC 2.87 L Hgb 8.9 L Hct 26.0 L MCV 90.7 MCH 31.2 H MCHC 34.4 RDW 12.7 Plt Count 200 MPV 9.1 Neut % (Auto) 82.0 H Lymph % (Auto) 7.2 L [place] % (Auto) 8.0 Eos % (Auto) 2.3 Baso % (Auto) 0.5 Neut # 9.8 H Lymph # 0.9 L [place] # 1.0 H Eos # 0.3 Baso # 0.1 Neutrophils % (Manual) 89 H Lymphocytes % (Manual) 3 L Monocytes % (Manual) 5 Eosinophils % (Manual) 3 Platelet Estimate Normal RBC Morphology Normal ESR 109 H PT INR APTT Sodium 126 L Potassium 4.5 Chloride 92 L Carbon Dioxide 24 Anion Gap 15 BUN 42 H Creatinine 1.8 H Est GFR ( Amer) 45 Est GFR (Non-Af Amer) 37 POC Glucose (mg/dL) Random Glucose 225 H Calcium 7.8 L Total Bilirubin 0.5 AST 11 L D ALT 15 L Alkaline Phosphatase 57 C-React Prot High Sens > 15.00 H Total Protein 6.5 Albumin 3.4 L Globulin 3.1 Albumin/Globulin Ratio 1.1 Triglycerides 211 H Cholesterol 192 LDL Cholesterol Direct 118 HDL Cholesterol 28 L Serum Ketones 08/25/17 08/25/17 07:09 11:12 WBC RBC Hgb Hct MCV MCH MCHC RDW Plt Count MPV Neut % (Auto) Lymph % (Auto) [place] % (Auto) Eos % (Auto) Baso % (Auto) Neut # Lymph # [place] # Eos # Baso # Neutrophils % (Manual) Lymphocytes % (Manual) Monocytes % (Manual) Eosinophils % (Manual) Platelet Estimate RBC Morphology ESR PT INR APTT Sodium Potassium Chloride Carbon Dioxide Anion Gap BUN Creatinine Est GFR ( Amer) Est GFR (Non-Af Amer) POC Glucose (mg/dL) 223 H 380 H Random Glucose Calcium Total Bilirubin AST ALT Alkaline Phosphatase C-React Prot High Sens Total Protein Albumin Globulin Albumin/Globulin Ratio Triglycerides Cholesterol LDL Cholesterol Direct HDL Cholesterol Serum Ketones Assessment & Plan (1) Carbuncle, neck Status: Acute Comment: IV AB. ID EVAL (2) Diabetes mellitus Status: Chronic (3) Renal insufficiency Status: Chronic (4) CAD (coronary artery disease) Status: Chronic
[2017-08-25] MEDS ORDERED: Clindamycin 300 MG in Sodium Chloride 0.9% 100 ML IVPB SCH (17:45)
--- NOTE | 2017-08-25 21:10 | CP.PCM.PN ---
Subjective - Date & Time of Evaluation Date of Evaluation: 08/25/17 Time of Evaluation: 21:10 - Subjective Subjective: CHIEF COMPLAINTS TODAY : spiking temperature to 101.3, BP 112/61 Tachycardic. c/o pain in neck region and upper back. ROS. HEENT : N. Resp : No SOB wheezing, cough Cardio : No CP, PND orthopnea GI : No abd. Pain, n/v [employer] : No headache , focal deficit. Musculoskel : N Ext. : Pedal pulses intact, no edema or calf pain Derm : cellulitis with a carbuncle with yellowish pus oozing out posteriorly below the neck and upper back. 2 satellite lesions also noted anterior chest. one scalp lesion with some scabbing and old blood noted on the scalp. Psych : N. PE. Pt. is alert awake in no distress. V.S As noted in the chart Head ,ear nose,throat and eyes : Normal. Neck : Supple with normal carotids. Lungs: Clear air entry. Heart : S1 & S2 normal . . No murmur. S4 + Abd : Soft non tender with normal bowel sounds. Neuro : Moves all ext. with no localized deficit. Ext : No edema with intact pulses. Neg. calf tenderness Derm : cellulitis with a carbuncle with yellowish pus oozing out posteriorly below the neck and upper back. 2 satellite lesions also noted anterior chest. one scalp lesion with some scabbing and old blood noted on the scalp Radiology/Labs . labs reviewed. Asssessment : . CARBUNCLE NECK/ ABSCESS . CELLULITIS OF THE NECK AND UPPER BACK. . MULTIPLE SKIN ABSCESSES R/O SEPTICEMIA . DIABETES MELLITUS-2. . HYPERTENSION. , RENAL INSUFFICIENCY. Plan : DC IV ROCEPHIN. DC IV CLEOCIN. START iv ZOSYN 2.25 iv EVERY 6 HOURLY .08/25/17. START iv DAPTOMYCIN 4 MG/KG EVERY 24 HOURLY FOR [facility] AND [facility] COVERAGE. . LOCAL WOUND CARE F/U CULTURES TO ADJUST ANTIBIOTICS. Objective - Vital Signs/Intake and Output Vital Signs (last 24 hours): Temp Pulse Resp BP Pulse Ox 98 F 104 H 20 112/61 99 08/25/17 15:15 08/25/17 15:15 08/25/17 15:15 08/25/17 15:15 08/25/17 15:15 Intake and Output: 08/25/17 08/26/17 18:59 06:59 Intake Total 900 Output Total 400 Balance 500 - Medications Medications: Current Medications Aspirin (Ecotrin) 81 mg PO DAILY [facility] Last Admin: 08/25/17 09:45 Dose: 81 mg Betamethasone Valerate (Betamethasone Valerate 0.1%) 0 ml TOP DAILY [facility] Last Admin: 08/25/17 10:44 Dose: 60 ml Clotrimazole (Lotrimin 1%) 0 gm EXT TID [facility] Last Admin: 08/25/17 10:45 Dose: 1 applic Doxazosin Mesylate (Cardura) 4 mg PO DAILY [facility] Last Admin: 08/25/17 09:45 Dose: 4 mg Furosemide (Lasix) 40 mg PO DAILY [facility] Last Admin: 08/25/17 09:45 Dose: 40 mg Glipizide (Glucotrol) 10 mg PO BID [facility] Last Admin: 08/25/17 17:43 Dose: 10 mg Heparin Sodium (Porcine) (Heparin) 5,000 units SC Q12 [facility] Last Admin: 08/25/17 09:47 Dose: 5,000 units Home Med (Patient's Own Medication) 1 tab PO DAILY [facility] Last Admin: 08/25/17 10:43 Dose: 1 tab Ceftriaxone Sodium 1 gm/ (Sodium Chloride) 100 mls @ 100 mls/hr IVPB DAILY [facility] Last Admin: 08/25/17 09:51 Dose: 100 mls/hr Clindamycin Phosphate 300 mg/ (Sodium Chloride) 102 mls @ 100 mls/hr IVPB Q6H [facility] Last Admin: 08/25/17 17:37 Dose: 100 mls/hr Insulin Human Regular (Novolin R) 0 unit SC ACHS [facility] PRN Reason: Protocol Last Admin: 08/25/17 16:30 Dose: 2 unit Lactobacillus Acidophilus (Bacid Acidophilus) 1 cap PO BID [facility] Last Admin: 08/25/17 17:38 Dose: 1 cap Lisinopril (Zestril) 2.5 mg PO DAILY [facility] Last Admin: 08/25/17 09:47 Dose: 2.5 mg Metformin HCl (Glucophage) 1,000 mg PO BID [facility] Last Admin: 08/25/17 17:42 Dose: 1,000 mg Pneumococcal Polyvalent Vaccine (Pneumovax 23 Vaccine) 0.5 ml IM .ONCE ONE Stop: 08/26/17 10:01 Rosuvastatin Calcium (Crestor) 5 mg PO [facility] Tamsulosin HCl (Flomax) 0.4 mg PO DAILY [facility] Last Admin: 08/25/17 09:47 Dose: 0.4 mg Ticagrelor (Brilinta) 90 mg PO BID [facility] Last Admin: 08/25/17 17:41 Dose: 90 mg - Labs Labs: 08/25/17 06:55 08/25/17 06:55 PT 12.6 SECONDS (9.7-12.2) H 08/24/17 22:31 INR 1.1 08/24/17 22:31 APTT 30 SECONDS (21-34) 08/24/17 22:31 Assessment and Plan (1) Carbuncle, neck Status: Acute (2) Abscess of multiple sites Status: Acute (3) Cellulitis Status: Acute (4) Diabetes mellitus Status: Chronic (5) Renal insufficiency Status: Chronic
[2017-08-25] MEDS: Tramadol 25 mg PO PRN (22:04)
[2017-08-25] MEDS ORDERED: DAPTOmycin 500 mg Inj (Cubicin) IV SCH (23:00)
[2017-08-25] MEDS: Piperacill/Tazo 2.25gm in Dex 2.25 GM/50 ML BAG IVPB SCH (23:30)
[2017-08-26] MEDS: Piperacill/Tazo 2.25gm in Dex 2.25 GM/50 ML BAG IVPB SCH ×4 (05:15→22:01)
[2017-08-26] MEDS: (Novolin R) Insulin Human Regular 100 units/ml vial SC SCH ×4 (08:00→21:30)
[2017-08-26] MEDS: Lactobacillus Acidophilus 500 MU Cap PO SCH ×2 (09:23→17:35)
[2017-08-26] MEDS: DUTASTERIDE 0.5 MG PO SCH (09:25)
[2017-08-26] MEDS: Betamethasone Valerate 0.1% Lotion (60 ml) TOP SCH (09:31)
[2017-08-26] MEDS: Clotrimazole 1% Cream 15 GM TUBE EXT SCH ×3 (09:31→17:42)
[2017-08-26] MEDS ORDERED: Pneumococcal 23-Valent Vaccine IM ONE (10:00)
[2017-08-26] MEDS ORDERED: Influenza Vaccine 60 mcg/0.5 mL SYR (4YR UP) IM ONE (10:00)
[2017-08-26 11:17] LABS: BASO % 0.3 % (0.0-2.0); EOS # 0.2 K/uL (0.0-0.7); EOS % 1.9 % (0.0-4.0); HEMOGLOBIN 8.4 g/dL (12.0-18.0); LYMPH # 0.7 K/uL (1.0-4.3); LYMPH % 5.9 % (20.0-40.0); MEAN CELL VOLUME 90.2 fL (80.0-94.0); MEAN CORPUSCULAR HEMOGLOBIN 31.2 pg (27.0-31.0); MEAN CORPUSCULAR HGB CONC 34.6 g/dL (33.0-37.0); NEUT # 10.5 K/uL (1.8-7.0); NEUT % 83.9 % (50.0-75.0); PLATELET COUNT 215 K/uL (130-400); RBC 2.68 Mil/uL (4.40-5.90); RED CELL DISTRIBUTION WIDTH 12.5 % (11.5-14.5); WHITE BLOOD COUNT 12.5 K/uL (4.8-10.8)
[2017-08-26 11:37] LABS: ALB/GLOB RATIO 1.1 (1.0-2.1); ALBUMIN 3.1 g/dL (3.5-5.0); CALCIUM 7.8 mg/dl (8.6-10.4)
[2017-08-26 12:03] LABS: ANISOCYTOSIS SLIGHT; BANDS 2 % (0-2); LYMPHOCYTE 5 % (20-40); MONOCYTE 6 % (0-10); NEUTROPHIL 87 % (50-75); PLATELET ESTIMATE NORMAL (NORMAL); TOTAL CELLS COUNTED 100
[2017-08-26 12:04] LABS: HYPOCHROMIC SLIGHT; POLYCHROMIC SLIGHT
[2017-08-26 12:06] LABS: LARGE PLATELETS PRESENT
--- NOTE | 2017-08-26 13:57 | CP.PCM.PN ---
Subjective - Date & Time of Evaluation Date of Evaluation: 08/26/17 Time of Evaluation: 13:55 - Subjective Subjective: CHIEF COMPLAINTS TODAY : GEN BODY PAIN SPIKING TEMP , IV AB ROS. HEENT : N. PAIN IN NAPE Resp : No cough, wheezing ,pleuritic CP ,or hemoptysis Cardio : No anginal CP, PND, orthopnea, palpitation GI : No abd.pain, n/v ,diarrhea or GI bleeding . 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 Musculoskel : No joint swelling , Derm : No rash Psych : Normal affect. Ext : No swelling ,calf pain PE. Pt. is alert awake in no distress. V.S As noted in the chart Head ,ear nose,throat and eyes : Normal. LARGE INDURATED MASS IN NAPE WITH ABSCESS IN EVOLUTION Neck : Supple with normal carotids. Lungs: Clear air entry. Heart : S1 & S2 normal with S4. No murmur. Abd : Soft non tender with normal bowel sounds. Neuro : Moves all ext. with no localized deficit. Ext : No edema with intact pulses.Non tender calves Derm : No rashes or decubitus ulcer. LABS/RADIOLOGY: C/S P END. ASSESSMENT/PLAN : IV AB SURG EVAL Objective - Vital Signs/Intake and Output Vital Signs (last 24 hours): Temp Pulse Resp BP Pulse Ox 97.7 F 97 H 20 100/80 96 08/26/17 07:49 08/26/17 07:49 08/26/17 07:49 08/26/17 09:27 08/26/17 07:49 Intake and Output: 08/26/17 08/26/17 11:59 23:59 Intake Total 440 Balance 440 - Medications Medications: Current Medications Acetaminophen (Tylenol 325mg Tab) 650 mg PO Q6 PRN PRN Reason: pain or temp 100.4 and above Aspirin (Ecotrin) 81 mg PO DAILY [facility] Last Admin: 08/26/17 09:23 Dose: 81 mg Betamethasone Valerate (Betamethasone Valerate 0.1%) 0 ml TOP DAILY [facility] Last Admin: 08/26/17 09:31 Dose: 60 ml Clotrimazole (Lotrimin 1%) 0 gm EXT TID [facility] Last Admin: 08/26/17 09:31 Dose: 1 applic Doxazosin Mesylate (Cardura) 4 mg PO DAILY [facility] Last Admin: 08/26/17 09:23 Dose: 4 mg Furosemide (Lasix) 40 mg PO DAILY [facility] Last Admin: 08/26/17 09:27 Dose: 40 mg Glipizide (Glucotrol) 10 mg PO BID [facility] Last Admin: 08/26/17 09:24 Dose: 10 mg Heparin Sodium (Porcine) (Heparin) 5,000 units SC Q12 [facility] Last Admin: 08/26/17 09:24 Dose: 5,000 units Home Med (Patient's Own Medication) 1 tab PO DAILY [facility] Last Admin: 08/26/17 09:25 Dose: 1 tab Piperacillin Sod/Tazobactam Sod (Zosyn 2.25 Gm Iv Premix) 2.25 gm in 50 mls @ 100 mls/hr IVPB Q6H [facility] Last Admin: 08/26/17 11:20 Dose: 100 mls/hr Daptomycin 280 mg/ Sodium (Chloride) 100 mls @ 100 mls/hr IV Q24H [facility] Stop: 08/31/17 00:01 Last Admin: 08/26/17 00:16 Dose: 100 mls/hr Insulin Human Regular (Novolin R) 0 unit SC ACHS [facility] PRN Reason: Protocol Last Admin: 08/26/17 11:20 Dose: 6 unit Lactobacillus Acidophilus (Bacid Acidophilus) 1 cap PO BID [facility] Last Admin: 08/26/17 09:23 Dose: 1 cap Lisinopril (Zestril) 2.5 mg PO DAILY [facility] Last Admin: 08/26/17 09:25 Dose: 2.5 mg Metformin HCl (Glucophage) 1,000 mg PO BID [facility] Last Admin: 08/26/17 09:24 Dose: 1,000 mg Tamsulosin HCl (Flomax) 0.4 mg PO DAILY [facility] Last Admin: 08/26/17 09:23 Dose: 0.4 mg Ticagrelor (Brilinta) 90 mg PO BID [facility] Last Admin: 08/26/17 09:23 Dose: 90 mg Tramadol HCl (Ultram) 25 mg PO Q8 PRN PRN Reason: Pain, moderate (4-7) Last Admin: 08/25/17 22:04 Dose: 25 mg - Labs Labs: 08/26/17 10:56 08/26/17 10:56 PT 12.6 SECONDS (9.7-12.2) H 08/24/17 22:31 INR 1.1 08/24/17 22:31 APTT 30 SECONDS (21-34) 08/24/17 22:31 Assessment and Plan (1) Carbuncle, neck Status: Acute (2) Diabetes mellitus Status: Chronic (3) Renal insufficiency Status: Chronic (4) CAD (coronary artery disease) Status: Chronic
--- NOTE | 2017-08-26 14:25 | CP.PCM.PN ---
Subjective - Date & Time of Evaluation Date of Evaluation: 08/26/17 Time of Evaluation: 14:25 - Subjective Subjective: CHIEF COMPLAINTS TODAY : spiking temperature Tachycardic. c/o pain in neck region and upper back. ROS. HEENT : N. Resp : No SOB wheezing, cough Cardio : No CP, PND orthopnea GI : No abd. 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 Musculoskel : N Ext. : Pedal pulses intact, no edema or calf pain Derm : cellulitis with a carbuncle with yellowish pus oozing out posteriorly below the neck and upper back. 2 satellite lesions also noted anterior chest. one scalp lesion with some scabbing and old blood noted on the scalp. Psych : N. PE. Pt. is alert awake in no distress. V.S As noted in the chart Head ,ear nose,throat and eyes : Normal. Neck : Supple with normal carotids. Lungs: Clear air entry. Heart : S1 & S2 normal . . No murmur. S4 + Abd : Soft non tender with normal bowel sounds. Neuro : Moves all ext. with no localized deficit. Ext : No edema with intact pulses. Neg. calf tenderness Derm : cellulitis with a carbuncle with yellowish pus oozing out posteriorly below the neck and upper back. 2 satellite lesions also noted anterior chest. one scalp lesion with some scabbing and old blood noted on the scalp Radiology/Labs . labs reviewed. Asssessment : . CARBUNCLE NECK/ ABSCESS . CELLULITIS OF THE NECK AND UPPER BACK. . MULTIPLE SKIN ABSCESSES R/O SEPTICEMIA . DIABETES MELLITUS-2. . HYPERTENSION. , RENAL INSUFFICIENCY. Plan : Consider Surgical Consult I & d abscess neck and upper back ( CARBUNCLE ) CONTINUE iv ZOSYN 2.25 iv EVERY 6 HOURLY .08/25/17. CONTINUE iv DAPTOMYCIN 4 MG/KG EVERY 24 HOURLY FOR [facility] AND m[facility]a COVERAGE. 07/31. LOCAL WOUND CARE F/U CULTURES TO ADJUST ANTIBIOTICS. Objective - Vital Signs/Intake and Output Vital Signs (last 24 hours): Temp Pulse Resp BP Pulse Ox 97.7 F 97 H 20 100/80 96 08/26/17 07:49 08/26/17 07:49 08/26/17 07:49 08/26/17 09:27 08/26/17 07:49 Intake and Output: 08/26/17 08/26/17 06:59 18:59 Intake Total 840 Output Total 2 Balance 838 - Medications Medications: Current Medications Acetaminophen (Tylenol 325mg Tab) 650 mg PO Q6 PRN PRN Reason: pain or temp 100.4 and above Aspirin (Ecotrin) 81 mg PO DAILY [facility] Last Admin: 08/26/17 09:23 Dose: 81 mg Betamethasone Valerate (Betamethasone Valerate 0.1%) 0 ml TOP DAILY [facility] Last Admin: 08/26/17 09:31 Dose: 60 ml Clotrimazole (Lotrimin 1%) 0 gm EXT TID [facility] Last Admin: 08/26/17 09:31 Dose: 1 applic Doxazosin Mesylate (Cardura) 4 mg PO DAILY [facility] Last Admin: 08/26/17 09:23 Dose: 4 mg Furosemide (Lasix) 40 mg PO DAILY [facility] Last Admin: 08/26/17 09:27 Dose: 40 mg Glipizide (Glucotrol) 10 mg PO BID [facility] Last Admin: 08/26/17 09:24 Dose: 10 mg Heparin Sodium (Porcine) (Heparin) 5,000 units SC Q12 [facility] Last Admin: 08/26/17 09:24 Dose: 5,000 units Home Med (Patient's Own Medication) 1 tab PO DAILY [facility] Last Admin: 08/26/17 09:25 Dose: 1 tab Piperacillin Sod/Tazobactam Sod (Zosyn 2.25 Gm Iv Premix) 2.25 gm in 50 mls @ 100 mls/hr IVPB Q6H [facility] Last Admin: 08/26/17 11:20 Dose: 100 mls/hr Daptomycin 280 mg/ Sodium (Chloride) 100 mls @ 100 mls/hr IV Q24H [facility] Stop: 08/31/17 00:01 Last Admin: 08/26/17 00:16 Dose: 100 mls/hr Insulin Human Regular (Novolin R) 0 unit SC ACHS [facility] PRN Reason: Protocol Last Admin: 08/26/17 11:20 Dose: 6 unit Lactobacillus Acidophilus (Bacid Acidophilus) 1 cap PO BID [facility] Last Admin: 08/26/17 09:23 Dose: 1 cap Lisinopril (Zestril) 2.5 mg PO DAILY [facility] Last Admin: 08/26/17 09:25 Dose: 2.5 mg Metformin HCl (Glucophage) 1,000 mg PO BID [facility] Last Admin: 08/26/17 09:24 Dose: 1,000 mg Tamsulosin HCl (Flomax) 0.4 mg PO DAILY [facility] Last Admin: 08/26/17 09:23 Dose: 0.4 mg Ticagrelor (Brilinta) 90 mg PO BID [facility] Last Admin: 08/26/17 09:23 Dose: 90 mg Tramadol HCl (Ultram) 25 mg PO Q8 PRN PRN Reason: Pain, moderate (4-7) Last Admin: 08/25/17 22:04 Dose: 25 mg - Labs Labs: 08/26/17 10:56 08/26/17 10:56 PT 12.6 SECONDS (9.7-12.2) H 08/24/17 22:31 INR 1.1 08/24/17 22:31 APTT 30 SECONDS (21-34) 08/24/17 22:31 Assessment and Plan (1) Carbuncle, neck Status: Acute (2) Abscess of multiple sites Status: Acute (3) Cellulitis Status: Acute (4) Diabetes mellitus Status: Chronic (5) Renal insufficiency Status: Chronic
[2017-08-26] MEDS: Tramadol 25 mg PO PRN (16:29)
[2017-08-27] MEDS: Piperacill/Tazo 2.25gm in Dex 2.25 GM/50 ML BAG IVPB SCH ×4 (05:07→22:00)
[2017-08-27 07:36] LABS: BASO # 0.1 K/uL (0.0-0.2); BASO % 0.4 % (0.0-2.0); EOS # 0.6 K/uL (0.0-0.7); EOS % 4.9 % (0.0-4.0); LYMPH % 8.2 % (20.0-40.0); MEAN CORPUSCULAR HEMOGLOBIN 31.2 pg (27.0-31.0); MEAN CORPUSCULAR HGB CONC 34.6 g/dL (33.0-37.0); MEAN PLATELET VOLUME 8.6 fL (7.2-11.7); MONO # 1.1 K/uL (0.0-0.8); MONO % 9.1 % (0.0-10.0); NEUT # 9.1 K/uL (1.8-7.0); NEUT % 77.4 % (50.0-75.0); PLATELET COUNT 236 K/uL (130-400); RBC 2.89 Mil/uL (4.40-5.90); RED CELL DISTRIBUTION WIDTH 12.6 % (11.5-14.5); WHITE BLOOD COUNT 11.7 K/uL (4.8-10.8)
[2017-08-27 08:02] LABS: ALB/GLOB RATIO 1.1 (1.0-2.1); ALBUMIN 3.3 g/dL (3.5-5.0); CALCIUM 8.2 mg/dl (8.6-10.4)
[2017-08-27] MEDS: (Novolin R) Insulin Human Regular 100 units/ml vial SC SCH ×4 (08:15→21:59)
[2017-08-27 08:50] LABS: BANDS 3 % (0-2); EOSINOPHIL 7 % (0-4); LYMPHOCYTE 4 % (20-40); MONOCYTE 7 % (0-10); NEUTROPHIL 79 % (50-75); TOTAL CELLS COUNTED 100
[2017-08-27 08:51] LABS: ANISOCYTOSIS SLIGHT; PLATELET ESTIMATE NORMAL (NORMAL); TOXIC GRANULATION PRESENT
[2017-08-27 08:52] LABS: GIANT PLATELETS PRESENT; HYPOCHROMIC SLIGHT; LARGE PLATELETS PRESENT; POLYCHROMIC SLIGHT
[2017-08-27] MEDS: Lactobacillus Acidophilus 500 MU Cap PO SCH ×2 (09:33→17:34)
[2017-08-27] MEDS: Clotrimazole 1% Cream 15 GM TUBE EXT SCH ×3 (09:37→17:41)
[2017-08-27] MEDS: DUTASTERIDE 0.5 MG PO SCH (09:37)
[2017-08-27] MEDS: Betamethasone Valerate 0.1% Lotion (60 ml) TOP SCH (09:37)
[2017-08-27 11:47] LABS: BASO % 0.4 % (0.0-2.0); EOS # 0.3 K/uL (0.0-0.7); EOS % 2.6 % (0.0-4.0); HEMOGLOBIN 8.5 g/dL (12.0-18.0); LYMPH # 0.7 K/uL (1.0-4.3); LYMPH % 5.8 % (20.0-40.0); MEAN CELL VOLUME 90.2 fL (80.0-94.0); MEAN CORPUSCULAR HEMOGLOBIN 31.2 pg (27.0-31.0); MEAN CORPUSCULAR HGB CONC 34.6 g/dL (33.0-37.0); MEAN PLATELET VOLUME 8.7 fL (7.2-11.7); MONO # 0.9 K/uL (0.0-0.8); MONO % 7.7 % (0.0-10.0); NEUT % 83.5 % (50.0-75.0); PLATELET COUNT 231 K/uL (130-400); RBC 2.72 Mil/uL (4.40-5.90); RED CELL DISTRIBUTION WIDTH 12.5 % (11.5-14.5)
[2017-08-27 11:56] LABS: ALB/GLOB RATIO 1.1 (1.0-2.1); ALBUMIN 3.2 g/dL (3.5-5.0)
[2017-08-27 12:26] LABS: BANDS 1 % (0-2); EOSINOPHIL 3 % (0-4); LYMPHOCYTE 7 % (20-40); MONOCYTE 8 % (0-10); NEUTROPHIL 81 % (50-75); PLATELET ESTIMATE NORMAL (NORMAL); TOTAL CELLS COUNTED 100
[2017-08-27 12:27] LABS: ANISOCYTOSIS SLIGHT
[2017-08-27 12:28] LABS: HYPOCHROMIC SLIGHT; POLYCHROMIC SLIGHT
--- NOTE | 2017-08-27 16:03 | CP.PCM.PN ---
Subjective - Date & Time of Evaluation Date of Evaluation: 08/27/17 Time of Evaluation: 16:03 - Subjective Subjective: CHIEF COMPLAINTS TODAY : GEN BODY PAIN SPIKING TEMP , IV AB ROS. HEENT : N. PAIN IN NAPE Resp : No cough, wheezing ,pleuritic CP ,or hemoptysis Cardio : No anginal CP, PND, orthopnea, palpitation GI : No abd.pain, n/v ,diarrhea or GI bleeding . 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 Musculoskel : No joint swelling , Derm : No rash Psych : Normal affect. Ext : No swelling ,calf pain PE. Pt. is alert awake in no distress. V.S As noted in the chart Head ,ear nose,throat and eyes : Normal. LARGE INDURATED MASS IN NAPE WITH ABSCESS IN EVOLUTION Neck : Supple with normal carotids. Lungs: Clear air entry. Heart : S1 & S2 normal with S4. No murmur. Abd : Soft non tender with normal bowel sounds. Neuro : Moves all ext. with no localized deficit. Ext : No edema with intact pulses.Non tender calves Derm : No rashes or decubitus ulcer. LABS/RADIOLOGY: C/S P END. ASSESSMENT/PLAN : IV AB SURG EVAL Objective - Vital Signs/Intake and Output Vital Signs (last 24 hours): Temp Pulse Resp BP Pulse Ox 99.2 F 104 H 20 100/60 96 08/27/17 08:00 08/27/17 08:00 08/27/17 08:00 08/27/17 09:35 08/27/17 08:00 Intake and Output: 08/27/17 08/27/17 11:59 23:59 Intake Total 200 910 Output Total 500 600 Balance -300 310 - Medications Medications: Current Medications Acetaminophen (Tylenol 325mg Tab) 650 mg PO Q6 PRN PRN Reason: pain or temp 100.4 and above Last Admin: 08/27/17 00:06 Dose: 650 mg Aspirin (Ecotrin) 81 mg PO DAILY [facility] Last Admin: 08/27/17 09:33 Dose: 81 mg Betamethasone Valerate (Betamethasone Valerate 0.1%) 0 ml TOP DAILY [facility] Last Admin: 08/27/17 09:37 Dose: 60 ml Clotrimazole (Lotrimin 1%) 0 gm EXT TID [facility] Last Admin: 08/27/17 15:18 Dose: 1 applic Doxazosin Mesylate (Cardura) 4 mg PO DAILY [facility] Last Admin: 08/27/17 09:33 Dose: 4 mg Furosemide (Lasix) 40 mg PO DAILY [facility] Last Admin: 08/27/17 09:35 Dose: 40 mg Glipizide (Glucotrol) 10 mg PO BID [facility] Last Admin: 08/27/17 09:34 Dose: 10 mg Heparin Sodium (Porcine) (Heparin) 5,000 units SC Q12 [facility] Last Admin: 08/27/17 09:34 Dose: 5,000 units Home Med (Patient's Own Medication) 1 tab PO DAILY [facility] Last Admin: 08/27/17 09:37 Dose: 1 tab Piperacillin Sod/Tazobactam Sod (Zosyn 2.25 Gm Iv Premix) 2.25 gm in 50 mls @ 100 mls/hr IVPB Q6H [facility] Last Admin: 08/27/17 11:51 Dose: 100 mls/hr Daptomycin 280 mg/ Sodium (Chloride) 100 mls @ 100 mls/hr IV Q24H [facility] Stop: 08/31/17 00:01 Last Admin: 08/27/17 00:05 Dose: 100 mls/hr Insulin Human Regular (Novolin R) 0 unit SC ACHS [facility] PRN Reason: Protocol Last Admin: 08/27/17 11:51 Dose: Not Given Lactobacillus Acidophilus (Bacid Acidophilus) 1 cap PO BID [facility] Last Admin: 08/27/17 09:33 Dose: 1 cap Lisinopril (Zestril) 2.5 mg PO DAILY [facility] Last Admin: 08/27/17 09:35 Dose: 2.5 mg Metformin HCl (Glucophage) 1,000 mg PO BID [facility] Last Admin: 08/27/17 09:30 Dose: 1,000 mg Tamsulosin HCl (Flomax) 0.4 mg PO DAILY [facility] Last Admin: 08/27/17 09:33 Dose: 0.4 mg Ticagrelor (Brilinta) 90 mg PO BID [facility] Last Admin: 08/27/17 09:33 Dose: 90 mg Tramadol HCl (Ultram) 25 mg PO Q8 PRN PRN Reason: Pain, moderate (4-7) Last Admin: 08/26/17 16:29 Dose: 25 mg - Labs Labs: 08/27/17 11:32 01/14/18 11:32 PT 12.6 SECONDS (9.7-12.2) H 08/24/17 22:31 INR 1.1 08/24/17 22:31 APTT 30 SECONDS (21-34) 08/24/17 22:31 Assessment and Plan (1) Carbuncle, neck Status: Acute (2) Diabetes mellitus Status: Chronic (3) Renal insufficiency Status: Chronic (4) CAD (coronary artery disease) Status: Chronic
[2017-08-27] MEDS: Tramadol 25 mg PO PRN (20:28)
--- NOTE | 2017-08-27 20:48 | CP.PCM.PN ---
Subjective - Date & Time of Evaluation Date of Evaluation: 08/27/17 Time of Evaluation: 20:48 - Subjective Subjective: CHIEF COMPLAINTS TODAY : TEMP DOWN c/o pain in neck region and upper back. IMPROVIMG CELLULITUS BACK /UPPER PART OF NECK ROS. HEENT : N. Resp : No SOB wheezing, cough Cardio : No CP, PND orthopnea GI : No abd. 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 Musculoskel : N Ext. : Pedal pulses intact, no edema or calf pain Derm : cellulitis with a carbuncle with yellowish pus oozing out posteriorly below the neck and upper back. 2 satellite lesions also noted anterior chest. one scalp lesion with some scabbing and old blood noted on the scalp. Psych : N. PE. Pt. is alert awake in no distress. V.S As noted in the chart Head ,ear nose,throat and eyes : Normal. Neck : Supple with normal carotids. Lungs: Clear air entry. Heart : S1 & S2 normal . . No murmur. S4 + Abd : Soft non tender with normal bowel sounds. Neuro : Moves all ext. with no localized deficit. Ext : No edema with intact pulses. Neg. calf tenderness Derm : cellulitis with a carbuncle with yellowish pus oozing out posteriorly below the neck and upper back. 2 satellite lesions also noted anterior chest. one scalp lesion with some scabbing and old blood noted on the scalp Radiology/Labs . labs reviewed. Asssessment : . CARBUNCLE NECK/ ABSCESS . CELLULITIS OF THE NECK AND UPPER BACK. . MULTIPLE SKIN ABSCESSES R/O SEPTICEMIA . DIABETES MELLITUS-2. . HYPERTENSION. , RENAL INSUFFICIENCY. Plan : Consider Surgical Consult I & d abscess neck and upper back ( CARBUNCLE ) CONTINUE iv ZOSYN 2.25 iv EVERY 6 HOURLY .08/25/17. CONTINUE iv DAPTOMYCIN 4 MG/KG EVERY 24 HOURLY FOR [facility] AND m[facility]a COVERAGE. 07/31. LOCAL WOUND CARE F/U CULTURES TO ADJUST ANTIBIOTICS. Objective - Vital Signs/Intake and Output Vital Signs (last 24 hours): Temp Pulse Resp BP Pulse Ox 98.2 F 97 H 20 115/65 96 08/27/17 16:00 08/27/17 16:00 08/27/17 16:00 08/27/17 16:00 08/27/17 16:00 Intake and Output: 08/27/1718 18:59 06:59 Intake Total 1110 Output Total 1100 Balance 10 - Medications Medications: Current Medications Acetaminophen (Tylenol 325mg Tab) 650 mg PO Q6 PRN PRN Reason: pain or temp 100.4 and above Last Admin: 08/27/17 00:06 Dose: 650 mg Aspirin (Ecotrin) 81 mg PO DAILY [facility] Last Admin: 08/27/17 09:33 Dose: 81 mg Betamethasone Valerate (Betamethasone Valerate 0.1%) 0 ml TOP DAILY [facility] Last Admin: 08/27/17 09:37 Dose: 60 ml Clotrimazole (Lotrimin 1%) 0 gm EXT TID [facility] Last Admin: 08/27/17 17:41 Dose: 1 applic Doxazosin Mesylate (Cardura) 4 mg PO DAILY [facility] Last Admin: 08/27/17 09:33 Dose: 4 mg Furosemide (Lasix) 40 mg PO DAILY [facility] Last Admin: 08/27/17 09:35 Dose: 40 mg Glipizide (Glucotrol) 10 mg PO BID [facility] Last Admin: 08/27/17 17:34 Dose: 10 mg Heparin Sodium (Porcine) (Heparin) 5,000 units SC Q12 [facility] Last Admin: 08/27/17 09:34 Dose: 5,000 units Home Med (Patient's Own Medication) 1 tab PO DAILY [facility] Last Admin: 08/27/17 09:37 Dose: 1 tab Piperacillin Sod/Tazobactam Sod (Zosyn 2.25 Gm Iv Premix) 2.25 gm in 50 mls @ 100 mls/hr IVPB Q6H [facility] Last Admin: 08/27/17 17:36 Dose: 100 mls/hr Daptomycin 280 mg/ Sodium (Chloride) 100 mls @ 100 mls/hr IV Q24H [facility] Stop: 08/31/17 00:01 Last Admin: 08/27/17 00:05 Dose: 100 mls/hr Insulin Human Regular (Novolin R) 0 unit SC ACHS [facility] PRN Reason: Protocol Last Admin: 08/27/17 16:14 Dose: 3 unit Lactobacillus Acidophilus (Bacid Acidophilus) 1 cap PO BID [facility] Last Admin: 08/27/17 17:34 Dose: 1 cap Lisinopril (Zestril) 2.5 mg PO DAILY [facility] Last Admin: 08/27/17 09:35 Dose: 2.5 mg Metformin HCl (Glucophage) 1,000 mg PO BID [facility] Last Admin: 08/27/17 17:34 Dose: 1,000 mg Tamsulosin HCl (Flomax) 0.4 mg PO DAILY [facility] Last Admin: 08/27/17 09:33 Dose: 0.4 mg Ticagrelor (Brilinta) 90 mg PO BID [facility] Last Admin: 08/27/17 17:34 Dose: 90 mg Tramadol HCl (Ultram) 25 mg PO Q8 PRN PRN Reason: Pain, moderate (4-7) Last Admin: 08/27/17 20:28 Dose: 25 mg - Labs Labs: 08/27/17 11:32 08/27/17 11:32 PT 12.6 SECONDS (9.7-12.2) H 08/24/17 22:31 INR 1.1 08/24/17 22:31 APTT 30 SECONDS (21-34) 08/24/17 22:31 Assessment and Plan (1) Carbuncle, neck Status: Acute (2) Abscess of multiple sites Status: Acute (3) Cellulitis Status: Acute (4) Diabetes mellitus Status: Chronic (5) Renal insufficiency Status: Chronic
[2017-08-28] MEDS: Piperacill/Tazo 2.25gm in Dex 2.25 GM/50 ML BAG IVPB SCH ×4 (05:26→22:12)
[2017-08-28 06:40] LABS: BASO # 0.1 K/uL (0.0-0.2); BASO % 0.5 % (0.0-2.0); EOS # 0.7 K/uL (0.0-0.7); EOS % 6.6 % (0.0-4.0); HEMOGLOBIN 8.5 g/dL (12.0-18.0); LYMPH # 1.1 K/uL (1.0-4.3); MEAN CORPUSCULAR HEMOGLOBIN 31.2 pg (27.0-31.0); MEAN CORPUSCULAR HGB CONC 34.7 g/dL (33.0-37.0); MEAN PLATELET VOLUME 8.5 fL (7.2-11.7); MONO % 8.6 % (0.0-10.0); NEUT # 8.4 K/uL (1.8-7.0); NEUT % 74.3 % (50.0-75.0); RBC 2.74 Mil/uL (4.40-5.90); RED CELL DISTRIBUTION WIDTH 12.5 % (11.5-14.5); WHITE BLOOD COUNT 11.2 K/uL (4.8-10.8)
[2017-08-28 06:46] LABS: ALBUMIN 3.2 g/dL (3.5-5.0); CALCIUM 8.3 mg/dl (8.6-10.4)
[2017-08-28] MEDS: (Novolin R) Insulin Human Regular 100 units/ml vial SC SCH ×4 (08:30→22:09)
[2017-08-28] MEDS: Clotrimazole 1% Cream 15 GM TUBE EXT SCH ×3 (09:40→17:34)
[2017-08-28] MEDS: Betamethasone Valerate 0.1% Lotion (60 ml) TOP SCH (09:40)
[2017-08-28] MEDS: Lactobacillus Acidophilus 500 MU Cap PO SCH ×2 (09:41→17:32)
[2017-08-28] MEDS: DUTASTERIDE 0.5 MG PO SCH (09:43)
--- NOTE | 2017-08-28 12:51 | CP.PCM.PN ---
Subjective - Date & Time of Evaluation Date of Evaluation: 08/28/17 Time of Evaluation: 12:51 - Subjective Subjective: CHIEF COMPLAINTS TODAY : GEN BODY PAIN SPIKING TEMP , IV AB ROS. HEENT : N. PAIN IN NAPE Resp : No cough, wheezing ,pleuritic CP ,or hemoptysis Cardio : No anginal CP, PND, orthopnea, palpitation GI : No abd.pain, n/v ,diarrhea or GI bleeding . FINANCIAL MANAGEMENT : No headache, vertigo, focal deficit. Musculoskel : No joint swelling , Derm : No rash Psych : Normal affect. Ext : No swelling ,calf pain PE. Pt. is alert awake in no distress. V.S As noted in the chart Head ,ear nose,throat and eyes : Normal. LARGE INDURATED MASS IN NAPE WITH ABSCESS IN EVOLUTION Neck : Supple with normal carotids. Lungs: Clear air entry. Heart : S1 & S2 normal with S4. No murmur. Abd : Soft non tender with normal bowel sounds. Neuro : Moves all ext. with no localized deficit. Ext : No edema with intact pulses.Non tender calves Derm : No rashes or decubitus ulcer. LABS/RADIOLOGY: C/S P END. ASSESSMENT/PLAN : IV AB SURG EVAL Objective - Vital Signs/Intake and Output Vital Signs (last 24 hours): Temp Pulse Resp BP Pulse Ox 98.5 F 91 H 20 179/77 H 95 08/28/17 08:31 08/28/17 08:31 08/28/17 08:31 08/28/17 09:41 08/28/17 08:31 Intake and Output: 08/28/17 08/28/17 11:59 23:59 Intake Total 350 Balance 350 - Medications Medications: Current Medications Acetaminophen (Tylenol 325mg Tab) 650 mg PO Q6 PRN PRN Reason: pain or temp 100.4 and above Last Admin: 08/27/17 00:06 Dose: 650 mg Aspirin (Ecotrin) 81 mg PO DAILY [facility] Last Admin: 08/28/17 09:41 Dose: 81 mg Betamethasone Valerate (Betamethasone Valerate 0.1%) 0 ml TOP DAILY [facility] Last Admin: 08/28/17 09:40 Dose: 60 ml Clotrimazole (Lotrimin 1%) 0 gm EXT TID [facility] Last Admin: 08/28/17 09:40 Dose: 1 applic Doxazosin Mesylate (Cardura) 4 mg PO DAILY [facility] Last Admin: 08/28/17 09:41 Dose: 4 mg Furosemide (Lasix) 40 mg PO DAILY [facility] Last Admin: 08/28/17 09:41 Dose: 40 mg Glipizide (Glucotrol) 10 mg PO BID [facility] Last Admin: 08/28/17 09:41 Dose: 10 mg Home Med (Patient's Own Medication) 1 tab PO DAILY [facility] Last Admin: 08/28/17 09:43 Dose: 1 tab Piperacillin Sod/Tazobactam Sod (Zosyn 2.25 Gm Iv Premix) 2.25 gm in 50 mls @ 100 mls/hr IVPB Q6H [facility] Last Admin: 08/28/17 10:54 Dose: 100 mls/hr Daptomycin 280 mg/ Sodium (Chloride) 100 mls @ 100 mls/hr IV Q24H [facility] Stop: 08/31/17 00:01 Last Admin: 08/28/17 00:18 Dose: 100 mls/hr Insulin Human Regular (Novolin R) 0 unit SC ACHS [facility] PRN Reason: Protocol Last Admin: 08/28/17 12:20 Dose: 6 unit Lactobacillus Acidophilus (Bacid Acidophilus) 1 cap PO BID [facility] Last Admin: 08/28/17 09:41 Dose: 1 cap Lisinopril (Zestril) 2.5 mg PO DAILY [facility] Last Admin: 08/28/17 09:41 Dose: 2.5 mg Metformin HCl (Glucophage) 1,000 mg PO BID [facility] Last Admin: 08/28/17 09:41 Dose: 1,000 mg Tamsulosin HCl (Flomax) 0.4 mg PO DAILY [facility] Last Admin: 08/28/17 09:41 Dose: 0.4 mg Ticagrelor (Brilinta) 90 mg PO BID [facility] Last Admin: 08/28/17 09:43 Dose: 90 mg Tramadol HCl (Ultram) 25 mg PO Q8 PRN PRN Reason: Pain, moderate (4-7) Last Admin: 08/27/17 20:28 Dose: 25 mg - Labs Labs: 08/28/17 06:27 08/28/17 06:27 PT 12.6 SECONDS (9.7-12.2) H 08/24/17 22:31 INR 1.1 08/24/17 22:31 APTT 30 SECONDS (21-34) 08/24/17 22:31 Assessment and Plan (1) Carbuncle, neck Status: Acute (2) Diabetes mellitus Status: Chronic (3) Renal insufficiency Status: Chronic (4) CAD (coronary artery disease) Status: Chronic
--- NOTE | 2017-08-28 15:31 | CP.PCM.PN ---
Subjective - Date & Time of Evaluation Date of Evaluation: 08/28/17 Time of Evaluation: 15:31 - Subjective Subjective: CHIEF COMPLAINTS TODAY : TEMP DOWN abscess draining but little. IMPROVIMG CELLULITUS BACK /UPPER PART OF NECK NO WOUND CULTURE OBTAINED 08/25/17 ORDERED ROS. HEENT : N. Resp : No SOB wheezing, cough Cardio : No CP, PND orthopnea GI : No abd. 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 Musculoskel : N Ext. : Pedal pulses intact, no edema or calf pain Derm : cellulitis with a carbuncle with yellowish pus oozing out posteriorly below the neck and upper back. 2 satellite lesions also noted anterior chest. one scalp lesion with some scabbing and old blood noted on the scalp. Psych : N. PE. Pt. is alert awake in no distress. V.S As noted in the chart Head ,ear nose,throat and eyes : Normal. Neck : Supple with normal carotids. Lungs: Clear air entry. Heart : S1 & S2 normal . . No murmur. S4 + Abd : Soft non tender with normal bowel sounds. Neuro : Moves all ext. with no localized deficit. Ext : No edema with intact pulses. Neg. calf tenderness Derm : cellulitis with a carbuncle with yellowish pus oozing out posteriorly below the neck and upper back. 2 satellite lesions also noted anterior chest. one scalp lesion with some scabbing and old blood noted on the scalp Radiology/Labs . labs reviewed. WOUND CULTURE 08/27/17 GP COCCI+VE in clusters Asssessment : . CARBUNCLE NECK/ ABSCESS . CELLULITIS OF THE NECK AND UPPER BACK. . MULTIPLE SKIN ABSCESSES R/O SEPTICEMIA . DIABETES MELLITUS-2. . HYPERTENSION. , RENAL INSUFFICIENCY. Plan : Consider Surgical Consult I & d abscess neck and upper back ( CARBUNCLE ) CALL SURGERY TO REMIND OF CONSULT PLEASE CONTINUE iv ZOSYN 2.25 iv EVERY 6 HOURLY .08/25/17. CONTINUE iv DAPTOMYCIN 4 MG/KG EVERY 24 HOURLY FOR STAPH AND mrsa COVERAGE. 07/31. LOCAL WOUND CARE F/U CULTURES TO ADJUST ANTIBIOTICS. PT.MAY NEED PICC LINE FOR IV ABX .DISCUSS W PMD. AND ID. DR LINARES ID IS COVERING ME.FROM 08/29/17. TO 09/04/17 PLEASE CALL HIM FOR ABX RENEWALS AND CULTURES, THANKYOU. Objective - Vital Signs/Intake and Output Vital Signs (last 24 hours): Temp Pulse Resp BP Pulse Ox 98.5 F 91 H 20 179/77 H 95 08/28/17 08:31 08/28/17 08:31 08/28/17 08:31 08/28/17 09:41 08/28/17 08:31 Intake and Output: 08/28/17 08/28/17 06:59 18:59 Intake Total 350 650 Balance 350 650 - Medications Medications: Current Medications Acetaminophen (Tylenol 325mg Tab) 650 mg PO Q6 PRN PRN Reason: pain or temp 100.4 and above Last Admin: 08/27/17 00:06 Dose: 650 mg Aspirin (Ecotrin) 81 mg PO DAILY [facility] Last Admin: 08/28/17 09:41 Dose: 81 mg Betamethasone Valerate (Betamethasone Valerate 0.1%) 0 ml TOP DAILY [facility] Last Admin: 08/28/17 09:40 Dose: 60 ml Clotrimazole (Lotrimin 1%) 0 gm EXT TID [facility] Last Admin: 08/28/17 13:44 Dose: 1 applic Doxazosin Mesylate (Cardura) 4 mg PO DAILY [facility] Last Admin: 08/28/17 09:41 Dose: 4 mg Furosemide (Lasix) 40 mg PO DAILY [facility] Last Admin: 08/28/17 09:41 Dose: 40 mg Glipizide (Glucotrol) 10 mg PO BID [facility] Last Admin: 08/28/17 09:41 Dose: 10 mg Home Med (Patient's Own Medication) 1 tab PO DAILY [facility] Last Admin: 08/28/17 09:43 Dose: 1 tab Piperacillin Sod/Tazobactam Sod (Zosyn 2.25 Gm Iv Premix) 2.25 gm in 50 mls @ 100 mls/hr IVPB Q6H [facility] Last Admin: 08/28/17 10:54 Dose: 100 mls/hr Daptomycin 280 mg/ Sodium (Chloride) 100 mls @ 100 mls/hr IV Q24H [facility] Stop: 08/31/17 00:01 Last Admin: 08/28/17 00:18 Dose: 100 mls/hr Insulin Human Regular (Novolin R) 0 unit SC ACHS [facility] PRN Reason: Protocol Last Admin: 08/28/17 12:20 Dose: 6 unit Lactobacillus Acidophilus (Bacid Acidophilus) 1 cap PO BID [facility] Last Admin: 08/28/17 09:41 Dose: 1 cap Lisinopril (Zestril) 2.5 mg PO DAILY [facility] Last Admin: 08/28/17 09:41 Dose: 2.5 mg Metformin HCl (Glucophage) 1,000 mg PO BID [facility] Last Admin: 08/28/17 09:41 Dose: 1,000 mg Tamsulosin HCl (Flomax) 0.4 mg PO DAILY [facility] Last Admin: 08/28/17 09:41 Dose: 0.4 mg Ticagrelor (Brilinta) 90 mg PO BID [facility] Last Admin: 08/28/17 09:43 Dose: 90 mg Tramadol HCl (Ultram) 25 mg PO Q8 PRN PRN Reason: Pain, moderate (4-7) Last Admin: 08/27/17 20:28 Dose: 25 mg - Labs Labs: 08/28/17 06:27 08/28/17 06:27 PT 12.6 SECONDS (9.7-12.2) H 08/24/17 22:31 INR 1.1 08/24/17 22:31 APTT 30 SECONDS (21-34) 08/24/17 22:31 Assessment and Plan (1) Carbuncle, neck Status: Acute (2) Abscess of multiple sites Status: Acute (3) Cellulitis Status: Acute (4) Diabetes mellitus Status: Chronic (5) Renal insufficiency Status: Chronic
[2017-08-28] MEDS: Tramadol 25 mg PO PRN (22:09)
[2017-08-29] MEDS: Piperacill/Tazo 2.25gm in Dex 2.25 GM/50 ML BAG IVPB SCH ×4 (04:30→22:08)
[2017-08-29] MEDS: Tramadol 25 mg PO PRN (06:31)
[2017-08-29 08:18] LABS: BASO % 0.4 % (0.0-2.0); EOS % 10.1 % (0.0-4.0); HEMOGLOBIN 8.9 g/dL (12.0-18.0); LYMPH # 0.9 K/uL (1.0-4.3); LYMPH % 8.7 % (20.0-40.0); MEAN CELL VOLUME 90.3 fL (80.0-94.0); MEAN CORPUSCULAR HEMOGLOBIN 31.5 pg (27.0-31.0); MEAN CORPUSCULAR HGB CONC 34.9 g/dL (33.0-37.0); MEAN PLATELET VOLUME 8.5 fL (7.2-11.7); MONO # 0.9 K/uL (0.0-0.8); MONO % 8.7 % (0.0-10.0); NEUT # 7.3 K/uL (1.8-7.0); NEUT % 72.1 % (50.0-75.0); PLATELET COUNT 280 K/uL (130-400); RBC 2.83 Mil/uL (4.40-5.90); RED CELL DISTRIBUTION WIDTH 12.7 % (11.5-14.5); WHITE BLOOD COUNT 10.1 K/uL (4.8-10.8)
[2017-08-29] MEDS: (Novolin R) Insulin Human Regular 100 units/ml vial SC SCH ×4 (08:19→22:01)
[2017-08-29 08:30] LABS: ALBUMIN 3.3 g/dL (3.5-5.0); CALCIUM 8.1 mg/dl (8.6-10.4)
[2017-08-29] MEDS: Clotrimazole 1% Cream 15 GM TUBE EXT SCH ×3 (09:18→20:50)
[2017-08-29] MEDS: Lactobacillus Acidophilus 500 MU Cap PO SCH ×2 (09:19→20:41)
[2017-08-29] MEDS: Betamethasone Valerate 0.1% Lotion (60 ml) TOP SCH (09:19)
[2017-08-29] MEDS: DUTASTERIDE 0.5 MG PO SCH ×2 (09:20→20:51)
[2017-08-29 10:57] LABS: BASOPHIL 1 % (0-2); EOSINOPHIL 12 % (0-4); LYMPHOCYTE 9 % (20-40); MONOCYTE 9 % (0-10); NEUTROPHIL 69 % (50-75); PLATELET ESTIMATE NORMAL (NORMAL); TOTAL CELLS COUNTED 100
--- NOTE | 2017-08-29 11:57 | CP.PCM.PN ---
Subjective - Date & Time of Evaluation Date of Evaluation: 08/29/17 Time of Evaluation: 11:56 - Subjective Subjective: CHIEF COMPLAINTS TODAY : GEN BODY PAIN SPIKING TEMP , IV AB ROS. HEENT : N. PAIN IN NAPE Resp : No cough, wheezing ,pleuritic CP ,or hemoptysis Cardio : No anginal CP, PND, orthopnea, palpitation GI : No abd.pain, n/v ,diarrhea or GI bleeding . 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 Musculoskel : No joint swelling , Derm : No rash Psych : Normal affect. Ext : No swelling ,calf pain PE. Pt. is alert awake in no distress. V.S As noted in the chart Head ,ear nose,throat and eyes : Normal. LARGE INDURATED MASS IN NAPE WITH ABSCESS IN EVOLUTION Neck : Supple with normal carotids. Lungs: Clear air entry. Heart : S1 & S2 normal with S4. No murmur. Abd : Soft non tender with normal bowel sounds. Neuro : Moves all ext. with no localized deficit. Ext : No edema with intact pulses.Non tender calves Derm : No rashes or decubitus ulcer. LABS/RADIOLOGY: C/S MRSA ASSESSMENT/PLAN : IV AB FOR OR TODAY FOR I&D Objective - Vital Signs/Intake and Output Vital Signs (last 24 hours): Temp Pulse Resp BP Pulse Ox 98.9 F 87 20 118/68 97 08/29/17 07:56 08/29/17 07:56 08/29/17 07:56 08/29/17 07:56 08/29/17 07:56 Intake and Output: 08/28/17 08/29/17 23:59 11:59 Intake Total 1200 180 Balance 1200 180 - Medications Medications: Current Medications Acetaminophen (Tylenol 325mg Tab) 650 mg PO Q6 PRN PRN Reason: pain or temp 100.4 and above Last Admin: 08/27/17 00:06 Dose: 650 mg Aspirin (Ecotrin) 81 mg PO DAILY [facility] Last Admin: 08/29/17 09:19 Dose: Not Given Betamethasone Valerate (Betamethasone Valerate 0.1%) 0 ml TOP DAILY [facility] Last Admin: 08/29/17 09:19 Dose: 60 ml Clotrimazole (Lotrimin 1%) 0 gm EXT TID [facility] Last Admin: 01/16/18 09:18 Dose: 1 applic Doxazosin Mesylate (Cardura) 4 mg PO DAILY [facility] Last Admin: 08/29/17 09:19 Dose: Not Given Furosemide (Lasix) 40 mg PO DAILY [facility] Last Admin: 08/29/17 09:20 Dose: Not Given Glipizide (Glucotrol) 10 mg PO BID [facility] Last Admin: 08/29/17 09:20 Dose: Not Given Home Med (Patient's Own Medication) 1 tab PO DAILY [facility] Last Admin: 08/29/17 09:20 Dose: Not Given Piperacillin Sod/Tazobactam Sod (Zosyn 2.25 Gm Iv Premix) 2.25 gm in 50 mls @ 100 mls/hr IVPB Q6H [facility] Last Admin: 08/29/17 10:58 Dose: 100 mls/hr Daptomycin 280 mg/ Sodium (Chloride) 100 mls @ 100 mls/hr IV Q24H [facility] Stop: 08/31/17 00:01 Last Admin: 08/29/17 00:05 Dose: 100 mls/hr Insulin Human Regular (Novolin R) 0 unit SC ACHS [facility] PRN Reason: Protocol Last Admin: 08/29/17 08:19 Dose: Not Given Lactobacillus Acidophilus (Bacid Acidophilus) 1 cap PO BID [facility] Last Admin: 08/29/17 09:19 Dose: Not Given Lisinopril (Zestril) 2.5 mg PO DAILY [facility] Last Admin: 08/29/17 09:20 Dose: Not Given Metformin HCl (Glucophage) 1,000 mg PO BID [facility] Last Admin: 08/29/17 09:19 Dose: Not Given Tamsulosin HCl (Flomax) 0.4 mg PO DAILY [facility] Last Admin: 08/29/17 09:19 Dose: Not Given Ticagrelor (Brilinta) 90 mg PO BID [facility] Last Admin: 08/29/17 09:19 Dose: Not Given Tramadol HCl (Ultram) 25 mg PO Q8 PRN PRN Reason: Pain, moderate (4-7) Last Admin: 08/29/17 06:31 Dose: 25 mg - Labs Labs: 08/29/17 07:55 08/29/17 07:55 PT 12.6 SECONDS (9.7-12.2) H 08/24/17 22:31 INR 1.1 08/24/17 22:31 APTT 30 SECONDS (21-34) 08/24/17 22:31 Assessment and Plan (1) Carbuncle, neck Status: Acute (2) Diabetes mellitus Status: Chronic (3) Renal insufficiency Status: Chronic (4) CAD (coronary artery disease) Status: Chronic
[2017-08-29] MEDS ORDERED: Midazolam 2 MG/2 ML VIAL ONE (16:59)
[2017-08-29] MEDS ORDERED: Propofol 10 mg/ml Inj (20 ML) ONE (16:59)
[2017-08-29] MEDS ORDERED: Lactated Ringer's 1,000 ML IV ONE (17:11)
[2017-08-29] MEDS ORDERED: Succinylcholine Chloride 20 mg/ml Syr (5 ml) IV ONE (17:14)
[2017-08-29] MEDS ORDERED: ePHEDrine 50 mg/ml Inj ONE (17:27)
[2017-08-30] MEDS: Piperacill/Tazo 2.25gm in Dex 2.25 GM/50 ML BAG IVPB SCH ×4 (04:42→22:28)
[2017-08-30 07:28] LABS: BASO % 0.4 % (0.0-2.0); EOS # 0.2 K/uL (0.0-0.7); EOS % 2.3 % (0.0-4.0); HEMOGLOBIN 8.5 g/dL (12.0-18.0); LYMPH # 0.4 K/uL (1.0-4.3); LYMPH % 6.6 % (20.0-40.0); MEAN CELL VOLUME 91.3 fL (80.0-94.0); MEAN CORPUSCULAR HEMOGLOBIN 31.4 pg (27.0-31.0); MEAN CORPUSCULAR HGB CONC 34.4 g/dL (33.0-37.0); MEAN PLATELET VOLUME 8.5 fL (7.2-11.7); MONO # 0.6 K/uL (0.0-0.8); MONO % 8.4 % (0.0-10.0); NEUT # 5.6 K/uL (1.8-7.0); NEUT % 82.3 % (50.0-75.0); PLATELET COUNT 275 K/uL (130-400); RED CELL DISTRIBUTION WIDTH 12.4 % (11.5-14.5); WHITE BLOOD COUNT 6.7 K/uL (4.8-10.8)
[2017-08-30] MEDS: (Novolin R) Insulin Human Regular 100 units/ml vial SC SCH ×5 (07:49→22:04)
[2017-08-30 07:59] LABS: ALB/GLOB RATIO 1.1 (1.0-2.1); ALBUMIN 3.3 g/dL (3.5-5.0); CALCIUM 8.3 mg/dl (8.6-10.4)
--- NOTE | 2017-08-30 08:20 | OP ---
PROCEDURE DATE: 08/29/2017 PREOPERATIVE DIAGNOSIS: Infected mass of the right neck and shoulder. POSTOPERATIVE DIAGNOSIS: Infected mass of the right neck and shoulder. PROCEDURE PERFORMED: Wide deep excision, infected mass in the right neck and shoulder with drainage of deep abscess, debridement. SURGEON: Abel Ulloa MD. ANESTHESIA: General. BLOOD LOSS: 60 mL. POSTOPERATIVE CONDITION: Stable. INDICATIONS FOR SURGERY: This is a 72-year-old male admitted with a large abscess of the right neck and scapula area, now will undergo an incision and drainage. GROSS FINDINGS: The patient had infected inflammatory mass, possibly an infected cyst, it was completely excised with draining the abscess. DESCRIPTION OF PROCEDURE: The patient was taken to the operating room, general anesthesia was administered, placed in the left lateral decubitus position. The right neck and scapula area were prepped and draped. An elliptical incision was made surrounding the infected mass. It was dissected free through the fascia and removed a large abscess cavity to drain. Bleeding was controlled using a Bovie and exposed chest blood vessel was repaired and the wound was irrigated with copious amounts of saline solution. A partial tissue transfer closure was performed at the periphery and the central portion of wound was packed open with wet saline gauze. The patient tolerated the procedure well and was transferred to recovery room in stable condition. Abel Ulloa MD
[2017-08-30 10:17] LABS: BANDS 2 % (0-2); BASOPHIL 1 % (0-2); EOSINOPHIL 3 % (0-4); LYMPHOCYTE 8 % (20-40); MONOCYTE 5 % (0-10); MYELOCYTE 1 % (0-0); NEUTROPHIL 80 % (50-75); PLATELET ESTIMATE NORMAL (NORMAL); TOTAL CELLS COUNTED 100
[2017-08-30 10:18] LABS: LARGE PLATELETS PRESENT
[2017-08-30] MEDS: Lactobacillus Acidophilus 500 MU Cap PO SCH ×2 (10:43→17:59)
[2017-08-30] MEDS: Betamethasone Valerate 0.1% Lotion (60 ml) TOP SCH (10:43)
[2017-08-30] MEDS: Clotrimazole 1% Cream 15 GM TUBE EXT SCH ×3 (10:43→18:26)
[2017-08-30] MEDS: DUTASTERIDE 0.5 MG PO SCH ×2 (10:44→21:51)
--- NOTE | 2017-08-30 11:05 | CP.PCM.PN ---
Subjective - Date & Time of Evaluation Date of Evaluation: 08/30/17 Time of Evaluation: 11:04 - Subjective Subjective: CHIEF COMPLAINTS TODAY : GEN BODY PAIN S/P I&D ROS. HEENT : N. PAIN IN NAPE Resp : No cough, wheezing ,pleuritic CP ,or hemoptysis Cardio : No anginal CP, PND, orthopnea, palpitation GI : No abd.pain, n/v ,diarrhea or GI bleeding . 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 Musculoskel : No joint swelling , Derm : No rash Psych : Normal affect. Ext : No swelling ,calf pain PE. Pt. is alert awake in no distress. V.S As noted in the chart Head ,ear nose,throat and eyes : Normal. LARGE INDURATED MASS IN NAPE WITH ABSCESS IN EVOLUTION Neck : Supple with normal carotids. Lungs: Clear air entry. Heart : S1 & S2 normal with S4. No murmur. Abd : Soft non tender with normal bowel sounds. Neuro : Moves all ext. with no localized deficit. Ext : No edema with intact pulses.Non tender calves Derm : No rashes or decubitus ulcer. LABS/RADIOLOGY: C/S MRSA ASSESSMENT/PLAN : IV AB CONT LOCAL WOUND CARE Objective - Vital Signs/Intake and Output Vital Signs (last 24 hours): Temp Pulse Resp BP Pulse Ox 98 F 68 20 118/68 96 08/30/17 07:53 08/30/17 07:53 08/30/17 07:53 08/30/17 07:53 08/30/17 07:53 Intake and Output: 08/29/17 08/30/17 23:59 11:59 Intake Total 600 150 Balance 600 150 - Medications Medications: Current Medications Acetaminophen (Tylenol 325mg Tab) 650 mg PO Q6 PRN PRN Reason: pain or temp 100.4 and above Last Admin: 08/27/17 00:06 Dose: 650 mg Aspirin (Ecotrin) 81 mg PO DAILY [facility] Last Admin: 08/30/17 10:43 Dose: Not Given Betamethasone Valerate (Betamethasone Valerate 0.1%) 0 ml TOP DAILY [facility] Last Admin: 08/30/17 10:43 Dose: Not Given Clotrimazole (Lotrimin 1%) 0 gm EXT TID [facility] Last Admin: 08/30/17 10:43 Dose: 1 applic Doxazosin Mesylate (Cardura) 4 mg PO DAILY [facility] Last Admin: 08/30/17 10:43 Dose: 4 mg Furosemide (Lasix) 40 mg PO DAILY [facility] Last Admin: 08/30/17 10:44 Dose: Not Given Glipizide (Glucotrol) 10 mg PO BID [facility] Last Admin: 08/30/17 10:44 Dose: Not Given Home Med (Patient's Own Medication) 1 tab PO DAILY [facility] Last Admin: 08/30/17 10:44 Dose: Not Given Hydromorphone HCl (Dilaudid) 1 mg IVP Q4H PRN PRN Reason: pain 6-10 Last Admin: 08/29/17 22:04 Dose: 1 mg Piperacillin Sod/Tazobactam Sod (Zosyn 2.25 Gm Iv Premix) 2.25 gm in 50 mls @ 100 mls/hr IVPB Q6H [facility] Last Admin: 08/30/17 10:44 Dose: 100 mls/hr Daptomycin 280 mg/ Sodium (Chloride) 100 mls @ 100 mls/hr IV Q24H [facility] Stop: 08/31/17 00:01 Last Admin: 08/30/17 00:25 Dose: 100 mls/hr Insulin Human Regular (Novolin R) 0 unit SC ACHS [facility] PRN Reason: Protocol Last Admin: 08/30/17 07:49 Dose: Not Given Lactobacillus Acidophilus (Bacid Acidophilus) 1 cap PO BID [facility] Last Admin: 08/30/17 10:43 Dose: Not Given Lisinopril (Zestril) 2.5 mg PO DAILY [facility] Last Admin: 08/30/17 10:44 Dose: Not Given Metformin HCl (Glucophage) 1,000 mg PO BID [facility] Last Admin: 08/30/17 10:44 Dose: Not Given Tamsulosin HCl (Flomax) 0.4 mg PO DAILY [facility] Last Admin: 08/30/17 10:43 Dose: Not Given Ticagrelor (Brilinta) 90 mg PO BID [facility] Last Admin: 08/30/17 10:43 Dose: Not Given Tramadol HCl (Ultram) 25 mg PO Q8 PRN PRN Reason: Pain, moderate (4-7) Last Admin: 08/29/17 06:31 Dose: 25 mg - Labs Labs: 08/30/17 07:12 08/30/17 07:12 PT 12.6 SECONDS (9.7-12.2) H 08/24/17 22:31 INR 1.1 08/24/17 22:31 APTT 30 SECONDS (21-34) 08/24/17 22:31 Assessment and Plan (1) Carbuncle, neck Status: Acute (2) Diabetes mellitus Status: Chronic (3) Renal insufficiency Status: Chronic (4) CAD (coronary artery disease) Status: Chronic
[2017-08-30] MEDS ORDERED: Lactated Ringer's 1,000 ML IV ONE ×2 (15:26)
[2017-08-30] MEDS ORDERED: Midazolam 2 MG/2 ML VIAL ONE (15:40)
[2017-08-30] MEDS ORDERED: Propofol 10 mg/ml Inj (20 ML) ONE (15:40)
[2017-08-30] MEDS ORDERED: Succinylcholine Chloride 20 mg/ml Syr (5 ml) IV ONE (15:43)
[2017-08-30] MEDS ORDERED: HYDROmorphone 0.5 mg/0.5 ml ISec IVP PRN (16:28)
--- NOTE | 2017-08-31 00:13 | OP ---
PROCEDURE DATE: 08/30/2017 PREOPERATIVE DIAGNOSIS: Extensive left neck and shoulder abscess. POSTOPERATIVE DIAGNOSIS: Extensive left neck and shoulder abscess. PROCEDURE PERFORMED: Redrainage, debridement, partial closure left shoulder abscess. SURGEON: Abel Ulloa MD ANESTHESIA: General. ESTIMATED BLOOD LOSS: 30 mL. POSTOPERATIVE CONDITION: Stable. INDICATIONS FOR SURGERY: This is a 72-year-old male status post drainage of a very large and extensive abscess of the left neck and shoulder area yesterday. He was taken back to the OR today for change of packing under anesthesia, and pulse irrigation/washout. GROSS FINDINGS: There was a fair amount of necrotic fascia within the wound, which had to be debrided. Any remaining collections were drained and cultured. DESCRIPTION OF PROCEDURE: The patient was taken to the operating room, general anesthesia was administered. He was placed in the prone position. The left posterior neck and shoulder area were prepped and draped after the packing was removed. The wound was aggressively debrided using Metzenbaum scissors and also the Bovie. Fair amount of necrotic fascia was removed. Bleeding was controlled using the Bovie. A larger blood vessel on the back was repaired and the wound was pulse irrigated with saline solution. A partial tissue transfer closure was performed at the periphery. The central portion was packed open with saline gauze. The patient tolerated procedure well, returned to recovery room in stable condition. Abel Ulloa MD
[2017-08-31] MEDS: Piperacill/Tazo 2.25gm in Dex 2.25 GM/50 ML BAG IVPB SCH ×4 (05:07→22:22)
[2017-08-31 06:49] LABS: BASO % 0.6 % (0.0-2.0); EOS # 0.7 K/uL (0.0-0.7); EOS % 10.4 % (0.0-4.0); HEMOGLOBIN 8.1 g/dL (12.0-18.0); LYMPH # 0.7 K/uL (1.0-4.3); LYMPH % 10.7 % (20.0-40.0); MEAN CELL VOLUME 90.6 fL (80.0-94.0); MEAN CORPUSCULAR HEMOGLOBIN 31.6 pg (27.0-31.0); MEAN CORPUSCULAR HGB CONC 34.8 g/dL (33.0-37.0); MEAN PLATELET VOLUME 7.8 fL (7.2-11.7); MONO # 0.8 K/uL (0.0-0.8); NEUT # 4.7 K/uL (1.8-7.0); NEUT % 67.3 % (50.0-75.0); NRBC % 0.1 % (0.0-2.0); RBC 2.57 Mil/uL (4.40-5.90); RED CELL DISTRIBUTION WIDTH 12.4 % (11.5-14.5)
[2017-08-31 07:07] LABS: ALBUMIN 3.2 g/dL (3.5-5.0); ALT/SGPT 34 U/L (21-72); AST/SGOT 34 U/L (17-59); BLOOD UREA NITROGEN 20 mg/dL (9-20); CALCIUM 8.5 mg/dl (8.6-10.4); GFR AFRICAN-AMERICAN > 60; GFR NON-AFRICAN AMERICAN 50
[2017-08-31] MEDS: (Novolin R) Insulin Human Regular 100 units/ml vial SC SCH ×5 (08:17→22:37)
[2017-08-31] MEDS: Lactobacillus Acidophilus 500 MU Cap PO SCH ×2 (09:47→17:22)
[2017-08-31] MEDS: DUTASTERIDE 0.5 MG PO SCH (09:49)
[2017-08-31] MEDS: Betamethasone Valerate 0.1% Lotion (60 ml) TOP SCH (09:50)
[2017-08-31] MEDS: Clotrimazole 1% Cream 15 GM TUBE EXT SCH ×3 (09:50→18:00)
--- NOTE | 2017-08-31 13:10 | CP.PCM.PN ---
Subjective - Date & Time of Evaluation Date of Evaluation: 08/31/17 Time of Evaluation: 13:10 - Subjective Subjective: CHIEF COMPLAINTS TODAY : GEN BODY PAIN S/P I&D ROS. HEENT : N. PAIN IN NAPE Resp : No cough, wheezing ,pleuritic CP ,or hemoptysis Cardio : No anginal CP, PND, orthopnea, palpitation GI : No abd.pain, n/v ,diarrhea or GI bleeding . 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 Musculoskel : No joint swelling , Derm : No rash Psych : Normal affect. Ext : No swelling ,calf pain PE. Pt. is alert awake in no distress. V.S As noted in the chart Head ,ear nose,throat and eyes : Normal. LARGE INDURATED MASS IN NAPE WITH ABSCESS IN EVOLUTION Neck : Supple with normal carotids. Lungs: Clear air entry. Heart : S1 & S2 normal with S4. No murmur. Abd : Soft non tender with normal bowel sounds. Neuro : Moves all ext. with no localized deficit. Ext : No edema with intact pulses.Non tender calves Derm : No rashes or decubitus ulcer. LABS/RADIOLOGY: C/S MRSA ASSESSMENT/PLAN : IV AB CONT LOCAL WOUND CARE Objective - Vital Signs/Intake and Output Vital Signs (last 24 hours): Temp Pulse Resp BP Pulse Ox 99.8 F H 98 H 20 145/70 96 08/31/17 07:23 08/31/17 07:23 08/31/17 07:23 08/31/17 09:45 08/31/17 07:23 Intake and Output: 08/31/17 08/31/17 11:59 23:59 Intake Total 330 Balance 330 - Medications Medications: Current Medications Acetaminophen (Tylenol 325mg Tab) 650 mg PO Q6 PRN PRN Reason: pain or temp 100.4 and above Last Admin: 08/27/17 00:06 Dose: 650 mg Aspirin (Ecotrin) 81 mg PO DAILY [facility] Last Admin: 08/31/17 09:45 Dose: 81 mg Betamethasone Valerate (Betamethasone Valerate 0.1%) 0 ml TOP DAILY [facility] Last Admin: 08/31/17 09:50 Dose: Not Given Clotrimazole (Lotrimin 1%) 0 gm EXT TID [facility] Last Admin: 08/31/17 09:50 Dose: Not Given Doxazosin Mesylate (Cardura) 4 mg PO DAILY [facility] Last Admin: 08/31/17 09:47 Dose: 4 mg Furosemide (Lasix) 40 mg PO DAILY [facility] Last Admin: 08/31/17 09:45 Dose: 40 mg Glipizide (Glucotrol) 10 mg PO BID [facility] Last Admin: 08/31/17 09:45 Dose: 10 mg Home Med (Patient's Own Medication) 1 tab PO DAILY [facility] Last Admin: 08/31/17 09:49 Dose: 1 tab Hydromorphone HCl (Dilaudid) 1 mg IVP Q4H PRN PRN Reason: pain 6-10 Last Admin: 08/29/17 22:04 Dose: 1 mg Piperacillin Sod/Tazobactam Sod (Zosyn 2.25 Gm Iv Premix) 2.25 gm in 50 mls @ 100 mls/hr IVPB Q6H [facility] Last Admin: 08/31/17 12:05 Dose: 100 mls/hr Insulin Human Regular (Novolin R) 0 unit SC ACHS [facility] PRN Reason: Protocol Last Admin: 08/31/17 12:05 Dose: 4 unit Lactobacillus Acidophilus (Bacid Acidophilus) 1 cap PO BID [facility] Last Admin: 08/31/17 09:47 Dose: 1 cap Lisinopril (Zestril) 2.5 mg PO DAILY [facility] Last Admin: 08/31/17 09:47 Dose: 2.5 mg Metformin HCl (Glucophage) 1,000 mg PO BID [facility] Last Admin: 08/31/17 09:46 Dose: 1,000 mg Tamsulosin HCl (Flomax) 0.4 mg PO DAILY [facility] Last Admin: 08/31/17 09:45 Dose: 0.4 mg Ticagrelor (Brilinta) 90 mg PO BID [facility] Last Admin: 08/31/17 09:47 Dose: 90 mg Tramadol HCl (Ultram) 25 mg PO Q8 PRN PRN Reason: Pain, moderate (4-7) Last Admin: 08/29/17 06:31 Dose: 25 mg - Labs Labs: 08/31/17 06:39 08/31/17 06:39 PT 12.6 SECONDS (9.7-12.2) H 08/24/17 22:31 INR 1.1 08/24/17 22:31 APTT 30 SECONDS (21-34) 08/24/17 22:31 Assessment and Plan (1) Carbuncle, neck Status: Acute (2) Diabetes mellitus Status: Chronic (3) Renal insufficiency Status: Chronic (4) CAD (coronary artery disease) Status: Chronic
[2017-08-31] MEDS: guaiFENesin 100 mg/5 ml Syrup UD PO PRN ×2 (17:23→22:25)
[2017-09-01] MEDS: guaiFENesin 100 mg/5 ml Syrup UD PO PRN ×2 (05:32→18:05)
[2017-09-01] MEDS: Piperacill/Tazo 2.25gm in Dex 2.25 GM/50 ML BAG IVPB SCH ×4 (05:32→22:02)
[2017-09-01 07:28] LABS: BASO % 0.7 % (0.0-2.0); EOS # 0.6 K/uL (0.0-0.7); EOS % 8.6 % (0.0-4.0); HEMOGLOBIN 8.4 g/dL (12.0-18.0); LYMPH # 0.9 K/uL (1.0-4.3); LYMPH % 12.6 % (20.0-40.0); MEAN CELL VOLUME 90.5 fL (80.0-94.0); MEAN CORPUSCULAR HEMOGLOBIN 31.3 pg (27.0-31.0); MEAN CORPUSCULAR HGB CONC 34.6 g/dL (33.0-37.0); MEAN PLATELET VOLUME 7.8 fL (7.2-11.7); MONO # 0.7 K/uL (0.0-0.8); MONO % 9.4 % (0.0-10.0); NEUT # 4.8 K/uL (1.8-7.0); NEUT % 68.7 % (50.0-75.0); RBC 2.68 Mil/uL (4.40-5.90); RED CELL DISTRIBUTION WIDTH 12.3 % (11.5-14.5)
[2017-09-01] MEDS: (Novolin R) Insulin Human Regular 100 units/ml vial SC SCH ×4 (07:51→21:50)
[2017-09-01 08:39] LABS: ALBUMIN 3.3 g/dL (3.5-5.0); CALCIUM 8.3 mg/dl (8.6-10.4)
[2017-09-01] MEDS: Betamethasone Valerate 0.1% Lotion (60 ml) TOP SCH (10:00)
[2017-09-01] MEDS: Lactobacillus Acidophilus 500 MU Cap PO SCH ×2 (10:40→18:15)
[2017-09-01] MEDS: Clotrimazole 1% Cream 15 GM TUBE EXT SCH ×3 (10:41→18:05)
[2017-09-01] MEDS: DUTASTERIDE 0.5 MG PO SCH (10:41)
--- NOTE | 2017-09-01 13:14 | CP.PCM.PN ---
Subjective - Date & Time of Evaluation Date of Evaluation: 09/01/17 Time of Evaluation: 13:14 - Subjective Subjective: CHIEF COMPLAINTS TODAY : GEN BODY PAIN S/P I&D ROS. HEENT : N. PAIN IN NAPE Resp : No cough, wheezing ,pleuritic CP ,or hemoptysis Cardio : No anginal CP, PND, orthopnea, palpitation GI : No abd.pain, n/v ,diarrhea or GI bleeding . 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 Musculoskel : No joint swelling , Derm : No rash Psych : Normal affect. Ext : No swelling ,calf pain PE. Pt. is alert awake in no distress. V.S As noted in the chart Head ,ear nose,throat and eyes : Normal. LARGE INDURATED MASS IN NAPE WITH ABSCESS IN EVOLUTION Neck : Supple with normal carotids. Lungs: Clear air entry. Heart : S1 & S2 normal with S4. No murmur. Abd : Soft non tender with normal bowel sounds. Neuro : Moves all ext. with no localized deficit. Ext : No edema with intact pulses.Non tender calves Derm : No rashes or decubitus ulcer. LABS/RADIOLOGY: C/S MRSA ASSESSMENT/PLAN : IV AB CONT LOCAL WOUND CARE Objective - Vital Signs/Intake and Output Vital Signs (last 24 hours): Temp Pulse Resp BP Pulse Ox 97.9 F 93 H 20 133/73 96 09/01/17 08:43 09/01/17 08:43 09/01/17 08:43 09/01/17 08:43 09/01/17 08:43 - Medications Medications: Current Medications Acetaminophen (Tylenol 325mg Tab) 650 mg PO Q6 PRN PRN Reason: pain or temp 100.4 and above Last Admin: 08/27/17 00:06 Dose: 650 mg Aspirin (Ecotrin) 81 mg PO DAILY [facility] Last Admin: 09/01/17 10:40 Dose: Not Given Betamethasone Valerate (Betamethasone Valerate 0.1%) 0 ml TOP DAILY [facility] Last Admin: 08/31/17 09:50 Dose: Not Given Clotrimazole (Lotrimin 1%) 0 gm EXT TID [facility] Last Admin: 09/01/17 10:41 Dose: 1 applic Doxazosin Mesylate (Cardura) 4 mg PO DAILY [facility] Last Admin: 09/01/17 10:40 Dose: Not Given Furosemide (Lasix) 40 mg PO DAILY [facility] Last Admin: 08/31/17 09:45 Dose: 40 mg Glipizide (Glucotrol) 10 mg PO BID [facility] Last Admin: 09/01/17 10:40 Dose: Not Given Guaifenesin (Robitussin) 100 mg PO Q4H PRN PRN Reason: Cough Last Admin: 09/01/17 05:32 Dose: 100 mg Home Med (Patient's Own Medication) 1 tab PO DAILY [facility] Last Admin: 09/01/17 10:41 Dose: Not Given Hydromorphone HCl (Dilaudid) 1 mg IVP Q4H PRN PRN Reason: pain 6-10 Last Admin: 08/29/17 22:04 Dose: 1 mg Piperacillin Sod/Tazobactam Sod (Zosyn 2.25 Gm Iv Premix) 2.25 gm in 50 mls @ 100 mls/hr IVPB Q6H [facility] Last Admin: 09/01/17 10:42 Dose: 100 mls/hr Insulin Human Regular (Novolin R) 0 unit SC [facility] PRN Reason: Protocol Last Admin: 09/01/17 07:51 Dose: Not Given Lactobacillus Acidophilus (Bacid Acidophilus) 1 cap PO BID [facility] Last Admin: 09/01/17 10:40 Dose: Not Given Lisinopril (Zestril) 2.5 mg PO DAILY [facility] Last Admin: 09/01/17 10:41 Dose: Not Given Metformin HCl (Glucophage) 1,000 mg PO BID [facility] Last Admin: 09/01/17 10:40 Dose: Not Given Tamsulosin HCl (Flomax) 0.4 mg PO DAILY [facility] Last Admin: 09/01/17 10:40 Dose: Not Given Ticagrelor (Brilinta) 90 mg PO BID [facility] Last Admin: 09/01/17 10:40 Dose: Not Given Tramadol HCl (Ultram) 25 mg PO Q8 PRN PRN Reason: Pain, moderate (4-7) Last Admin: 08/29/17 06:31 Dose: 25 mg - Labs Labs: 09/01/17 07:12 09/01/17 07:12 PT 12.6 SECONDS (9.7-12.2) H 08/24/17 22:31 INR 1.1 08/24/17 22:31 APTT 30 SECONDS (21-34) 08/24/17 22:31 Assessment and Plan (1) Carbuncle, neck Status: Acute (2) Diabetes mellitus Status: Chronic (3) Renal insufficiency Status: Chronic (4) CAD (coronary artery disease) Status: Chronic
[2017-09-01] MEDS ORDERED: Lactated Ringer's 1,000 ML IV ONE (13:45)
[2017-09-01] MEDS ORDERED: Propofol 10 mg/ml Inj (20 ML) ONE (13:47)
[2017-09-01] MEDS ORDERED: Midazolam 2 MG/2 ML VIAL ONE (13:47)
[2017-09-01] MEDS ORDERED: HYDROmorphone 0.5 mg/0.5 ml ISec IVP PRN (14:19)
--- NOTE | 2017-09-01 17:04 | CP.PCM.CON ---
History of Present Illness - History of Present Illness History of Present Illness: called by dr jaquez to review antibiotics s/p OR for I and D of neck abscess cultures + for MSSA IV rx in progress consider MRi will need to cont IV antibiotics for several weeks 72-year-old male presents to the ER 08/24/17 complaining of a large carbuncle to the back of the neck worsening over the past few days. PMH: Arthritis (R ARM FX; KNEE), Benign Prostatic Hyperplasia, Fractures (RIGHT ARM), HTN, Peripheral Edema, Pneumonia (1965) HX LEFT LE MSSA ABSCESS/ULCER FEBRUARY 2017. - [facility] Procedures DRAINAGE OF L FOOT SUBCU/FASCIA, OPEN APPROACH (03/09/17) DRAINAGE OF LEFT FOOT SKIN, EXTERNAL APPROACH (03/09/17) EXCISION OF L FOOT SUBCU/FASCIA, OPEN APPROACH (03/09/17) INSERT INDWELLING CATH (04/08/15) INSERTION OF INFUSION DEV INTO SUP VENA CAVA, PERC APPROACH (03/09/17) NONEXCIS DEBRID OF WOUND, INFECT, OR BURN (01/31/13) OTHER SKIN & SUBQ I D (01/31/13) TRANSFER LEFT FOOT SKIN, EXTERNAL APPROACH (03/09/17) VENOUS CATHETERIZATION NEC (01/31/13) Review of Systems - Review of Systems All systems: reviewed and no additional remarkable complaints except - Constitutional Constitutional: As Per HPI - EENT Eyes: absent: As Per HPI, Blind Spots, Blurred Vision, Change in Vision, Decreased Night Vision, Diplopia, Discharge, Dry Eye, Exophthalmos, Floaters, Irritation, Itchy Eyes, Loss of Peripheral Vision, Pain, Photophobia, Requires Corrective Lenses, Sees Flashes, Spots in Vision, Tunnel Vision, Other Visual Disturbances, Loss of Vision, Other Ears: absent: As Per HPI, Decreased Hearing, Ear Discharge, Ear Pain, Tinnitus, Abnormal Hearing, Disequilibrium, Dizziness, Other Nose/Mouth/Throat: absent: As Per HPI, Epistaxis, Nasal Congestion, Nasal Discharge, Nasal Obstruction, Nasal Trauma, Nose Pain, Post Nasal Drip, Sinus Pain, Sinus Pressure, Bleeding Gums, Change in Voice, Dental Pain, Dry Mouth, Dysphagia, Halitosis, Hoarsness, Lip Swelling, Mouth Lesions, Mouth Pain, Odynophagia, Sore Throat, Throat Swelling, Tongue Swelling, Facial Pain, Neck Pain, Neck Mass, Other - Cardiovascular Cardiovascular: absent: As Per HPI, Acrocyanosis, Chest Pain, Chest Pain at Rest , Chest Pain with Activity, Claudication, Diaphoresis, Dyspnea, Dyspnea on Exertion, Edema, Irregular Heart Rhythm, Pain Radiating to Arm/Neck/Jaw, Leg Edema, Leg Ulcers, Lightheadedness, Orthopnea, Palpitations, Paroxysmal Nocturnal Dyspnea, Pedal Edema, Radiating Pain, Rapid Heart Rate, Slow Heart Rate, Syncope, Other - Respiratory Respiratory: absent: As Per HPI, Cough, Dyspnea, Hemoptysis, Dyspnea on Exertion , Wheezing, Snoring, Stridor, Pain on Inspiration, Chest Congestion, Excessive Mucous Production, Change in Mucous Color, Pain with Coughing, Other - Gastrointestinal Gastrointestinal: absent: As Per HPI, Abdominal Pain, Belching, Bloating, Change in Bowel Habits, Change in Stool Character, Coffee Ground Emesis, Constipation, Cramping, Diarrhea, Dyspepsia, Dysphagia, Early Satiety, Excessive Flatus, Fecal Incontinence, Heartburn, Hematemesis, Hematochezia, Loose Stools, Melena, Nausea, Odynophagia, Temesmus, Vomiting, Other - Genitourinary Genitourinary: absent: As Per HPI, Change in Urinary Stream, Difficulty Urinating, Dysuria, Flank Pain, Hematuria, Pyuria, Nocturia, Urinary Incontinence, Urinary Frequency, Urinary Hesitance, Urinary Urgency, Voiding Freq/Small Amts, Freq UTI, Hx Renal/Bladder Calculi, Hx /Renal Surgery, Bladder Distension, Other - Musculoskeletal Musculoskeletal: As Per HPI - Integumentary Integumentary: As Per HPI, Skin Pain, Wounds - Neurological Neurological: absent: As Per HPI, Abnormal Gait, Abnormal Hearing, Abnormal Movements, Abnormal Speech, Behavioral Changes, Burning Sensations, Confusion, Convulsions, Disequilibrium, Dizziness, Numbness, Focal Weakness, Frequent Falls , Headaches, Lack of Coordination, Loss of Vision, Memory Loss, Paresthesias, Radicular Pain, Restless Legs, Sensory Deficit, Syncope, Tingling, Tremor, Vertigo, Weakness, Other Visual Disturbances, Other - Psychiatric Psychiatric: absent: As Per HPI, Abnormal Sleep Pattern, Anhedonia, Anxiety, Auditory Hallucinations, Behavioral Changes, Change in Appetite, Change in Libido, Confusion, Depression, Difficulty Concentrating, Hallucinations, Homicidal Ideation, Hopelessness, Irritability, Memory Loss, Mood Swings, Panic Attacks, Paranoia, Suicidal Ideation, Visual Hallucinations, Tactile Hallucinations, Other - Endocrine Endocrine: absent: As Per HPI, Change in Body Appearance, Change in Libido, Cold Intolorance, Deepening of Voice, Excessive Sweating, Fatigue, Flushing, Heat Intolorance, Increase in Ring/Shoe/Hat Size, Palpitations, Polydipsia, Polyphagia, Polyuria, Other - Hematologic/Lymphatic Hematologic: absent: As Per HPI, Easy Bleeding, Easy Bruising, Lymphadenopathy, Other Past Patient History - Infectious Disease Hx of Infectious Diseases: None - Past Medical History & Family History Past Medical History?: Yes - Past Social History Smoking Status: Never Smoked - CARDIAC Hx Hypertension: Yes Hx Peripheral Edema: Yes - PULMONARY Hx Pneumonia: Yes (1965) - NEUROLOGICAL Hx Neurological Disorder: No - HEENT Hx HEENT Problems: Yes Hx Glaucoma: Yes - RENAL Hx Chronic Kidney Disease: No - ENDOCRINE/METABOLIC Hx Endocrine Disorders: Yes Hx Diabetes Mellitus Type 2: Yes - HEMATOLOGICAL/ONCOLOGICAL Hx Blood Disorders: No - INTEGUMENTARY Hx Dermatological Problems: Yes (PRURITIS) Other/Comment: Mass of neck/scalp - MUSCULOSKELETAL/RHEUMATOLOGICAL Hx Arthritis: Yes (R ARM FX; KNEE) Hx Fractures: Yes (RIGHT ARM) - GASTROINTESTINAL Hx Gastrointestinal Disorders: No - GENITOURINARY/GYNECOLOGICAL Hx Genitourinary Disorders: Yes Hx Prostate Problems: Yes - PSYCHIATRIC Hx Substance Use: No - SURGICAL HISTORY Hx Surgeries: Yes Hx Cardiac Catheterization: Yes Hx Orthopedic Surgery: Yes (RIGHT SHOULDER) Other/Comment: CYST FROM BUTTOCKS, prostate bx - ANESTHESIA Hx Anesthesia: Yes Hx Anesthesia Reactions: No Hx Malignant Hyperthermia: No Meds Allergies/Adverse Reactions: Allergies Allergy/AdvReac Type Severity Reaction Status Date / Time shellfish derived Allergy Verified 08/24/17 20:29 tetanus toxoid, adsorbed Allergy RASH Verified 08/24/17 20:29 - Medications Medications: Current Medications Acetaminophen (Tylenol 325mg Tab) 650 mg PO Q6 PRN PRN Reason: pain or temp 100.4 and above Last Admin: 08/27/17 00:06 Dose: 650 mg Aspirin (Ecotrin) 81 mg PO DAILY [facility] Last Admin: 09/01/17 10:40 Dose: Not Given Betamethasone Valerate (Betamethasone Valerate 0.1%) 0 ml TOP DAILY [facility] Last Admin: 09/01/17 10:00 Dose: Not Given Clotrimazole (Lotrimin 1%) 0 gm EXT TID [facility] Last Admin: 09/01/17 14:54 Dose: Not Given Doxazosin Mesylate (Cardura) 4 mg PO DAILY [facility] Last Admin: 09/01/17 10:40 Dose: Not Given Furosemide (Lasix) 40 mg PO DAILY [facility] Last Admin: 09/01/17 10:00 Dose: Not Given Glipizide (Glucotrol) 10 mg PO BID [facility] Last Admin: 09/01/17 10:40 Dose: Not Given Guaifenesin (Robitussin) 100 mg PO Q4H PRN PRN Reason: Cough Last Admin: 09/01/17 05:32 Dose: 100 mg Home Med (Patient's Own Medication) 1 tab PO DAILY [facility] Last Admin: 09/01/17 10:41 Dose: Not Given Hydromorphone HCl (Dilaudid) 1 mg IVP Q4H PRN PRN Reason: pain 6-10 Last Admin: 08/29/17 22:04 Dose: 1 mg Piperacillin Sod/Tazobactam Sod (Zosyn 2.25 Gm Iv Premix) 2.25 gm in 50 mls @ 100 mls/hr IVPB Q6H [facility] Last Admin: 09/01/17 10:42 Dose: 100 mls/hr Insulin Human Regular (Novolin R) 0 unit SC ACHS [facility] PRN Reason: Protocol Last Admin: 09/01/17 11:30 Dose: Not Given Lactobacillus Acidophilus (Bacid Acidophilus) 1 cap PO BID [facility] Last Admin: 09/01/17 10:40 Dose: Not Given Lisinopril (Zestril) 2.5 mg PO DAILY [facility] Last Admin: 09/01/17 10:41 Dose: Not Given Metformin HCl (Glucophage) 1,000 mg PO BID [facility] Last Admin: 09/01/17 10:40 Dose: Not Given Tamsulosin HCl (Flomax) 0.4 mg PO DAILY [facility] Last Admin: 09/01/17 10:40 Dose: Not Given Ticagrelor (Brilinta) 90 mg PO BID [facility] Last Admin: 09/01/17 10:40 Dose: Not Given Tramadol HCl (Ultram) 25 mg PO Q8 PRN PRN Reason: Pain, moderate (4-7) Last Admin: 08/29/17 06:31 Dose: 25 mg Physical Exam - Constitutional Appears: Non-toxic, Chronically Ill - Head Exam Head Exam: NORMOCEPHALIC - Eye Exam Eye Exam: PERRL. absent: Scleral icterus - ENT Exam ENT Exam: Mucous Membranes Dry - Neck Exam Neck exam: Negative for: Lymphadenopathy - Respiratory Exam Respiratory Exam: Decreased Breath Sounds, Rhonchi - Cardiovascular Exam Cardiovascular Exam: REGULAR RHYTHM, +S1, +S2 - GI/Abdominal Exam GI & Abdominal Exam: Diminished Bowel Sounds, Soft. absent: Tenderness - Rectal Exam Rectal Exam: Deferred - Exam Exam: NORMAL INSPECTION - Extremities Exam Extremities exam: Negative for: pedal edema - Back Exam Back exam: absent: CVA tenderness (L), CVA tenderness (R) - Neurological Exam Neurological exam: Alert, CN II-XII Intact, Oriented x3, Reflexes Normal - Psychiatric Exam Psychiatric exam: Normal Mood - Skin Skin Exam: Dry Results - Vital Signs Recent Vital Signs: Last Vital Signs Temp 99.2 F 09/01/17 15:15 Pulse 95 H 09/01/17 15:15 Resp 10 L 09/01/17 15:15 BP 114/73 09/01/17 15:15 Pulse Ox 99 09/01/17 15:15 - Labs Result Diagrams: 09/03/17 08:19 09/03/17 08:19 Labs: Laboratory Results - last 24 hr 08/31/17 09/01/17 09/01/17 21:27 02:17 07:12 WBC 7.0 RBC 2.68 L Hgb 8.4 L Hct 24.2 L MCV 90.5 MCH 31.3 H MCHC 34.6 RDW 12.3 Plt Count 273 MPV 7.8 Neut % (Auto) 68.7 Lymph % (Auto) 12.6 L [place] % (Auto) 9.4 Eos % (Auto) 8.6 H Baso % (Auto) 0.7 Neut # 4.8 Lymph # 0.9 L [place] # 0.7 Eos # 0.6 Baso # 0.0 Sodium Potassium Chloride Carbon Dioxide Anion Gap BUN Creatinine Est GFR ( Amer) Est GFR (Non-Af Amer) POC Glucose (mg/dL) 169 H 122 H Random Glucose Calcium Total Bilirubin AST ALT Alkaline Phosphatase Total Protein Albumin Globulin Albumin/Globulin Ratio 09/01/17 09/01/17 09/01/17 07:12 07:18 11:02 WBC RBC Hgb Hct MCV MCH MCHC RDW Plt Count MPV Neut % (Auto) Lymph % (Auto) [place] % (Auto) Eos % (Auto) Baso % (Auto) Neut # Lymph # [place] # Eos # Baso # Sodium 131 L Potassium 3.8 Chloride 95 L Carbon Dioxide 29 Anion Gap 11 BUN 19 Creatinine 1.5 Est GFR ( Amer) 56 Est GFR (Non-Af Amer) 46 POC Glucose (mg/dL) 160 H 188 H Random Glucose 135 H Calcium 8.3 L Total Bilirubin 0.4 AST 22 ALT 32 Alkaline Phosphatase 61 Total Protein 6.4 Albumin 3.3 L Globulin 3.2 Albumin/Globulin Ratio 1.0 09/01/17 16:13 WBC RBC Hgb Hct MCV MCH MCHC RDW Plt Count MPV Neut % (Auto) Lymph % (Auto) [place] % (Auto) Eos % (Auto) Baso % (Auto) Neut # Lymph # [place] # Eos # Baso # Sodium Potassium Chloride Carbon Dioxide Anion Gap BUN Creatinine Est GFR ( Amer) Est GFR (Non-Af Amer) POC Glucose (mg/dL) 240 H Random Glucose Calcium Total Bilirubin AST ALT Alkaline Phosphatase Total Protein Albumin Globulin Albumin/Globulin Ratio Assessment & Plan (1) Abscess Status: Acute (2) Abscess of multiple sites Status: Acute (3) Carbuncle, neck Status: Acute (4) Cellulitis Status: Acute (5) Diabetes mellitus Status: Chronic (6) Renal insufficiency Status: Chronic
[2017-09-01 17:20] VITALS: RESP 20
--- NOTE | 2017-09-01 20:55 | OP ---
PROCEDURE DATE: 09/01/2017 PREOPERATIVE DIAGNOSIS: Extensive abscess and necrosis of the right neck and shoulder region. POSTOPERATIVE DIAGNOSIS: Extensive abscess and necrosis of the right neck and shoulder region. PROCEDURE PERFORMED: Change of packing, debridement, and partial flap closure. SURGEON: Abel Ulloa MD. ANESTHESIA: General. ESTIMATED BLOOD LOSS: 30 mL. POSTOPERATIVE CONDITION: Stable. INDICATION FOR SURGERY: The patient was taken back to the OR with an extensive necrotizing infection of the neck, have not been drained and debrided once. He was taken back for further debridement and a partial closure. DESCRIPTION OF PROCEDURE: The patient was taken to the operating room and general anesthesia was administered. The neck area was prepped and draped after the previous packing was removed. The wound was pulse irrigated and all necrotic tissue was debrided back to bleeding tissue. Bleeding was controlled using the Bovie . A chest wall blood vessel was repaired. The wound was again irrigated with saline. Generous tissue flaps were raised and a partial flap closure was performed at the periphery. Central portion was packed open with saline gauze. The patient tolerated the procedure well, returned to recovery room in stable condition. Abel Ulloa MD
[2017-09-02] MEDS: Piperacill/Tazo 2.25gm in Dex 2.25 GM/50 ML BAG IVPB SCH ×4 (04:28→22:03)
[2017-09-02] MEDS: guaiFENesin 100 mg/5 ml Syrup UD PO PRN ×3 (07:06→20:30)
[2017-09-02 07:39] LABS: BASO % 0.4 % (0.0-2.0); EOS # 0.8 K/uL (0.0-0.7); EOS % 10.2 % (0.0-4.0); HEMOGLOBIN 8.9 g/dL (12.0-18.0); LYMPH # 1.1 K/uL (1.0-4.3); LYMPH % 13.5 % (20.0-40.0); MEAN CORPUSCULAR HEMOGLOBIN 31.4 pg (27.0-31.0); MEAN CORPUSCULAR HGB CONC 34.5 g/dL (33.0-37.0); MEAN PLATELET VOLUME 7.7 fL (7.2-11.7); MONO # 0.7 K/uL (0.0-0.8); MONO % 8.4 % (0.0-10.0); NEUT # 5.5 K/uL (1.8-7.0); NEUT % 67.5 % (50.0-75.0); RBC 2.83 Mil/uL (4.40-5.90); RED CELL DISTRIBUTION WIDTH 12.7 % (11.5-14.5); WHITE BLOOD COUNT 8.2 K/uL (4.8-10.8)
[2017-09-02] MEDS: (Novolin R) Insulin Human Regular 100 units/ml vial SC SCH ×4 (07:55→21:15)
[2017-09-02 08:17] LABS: ALBUMIN 3.3 g/dL (3.5-5.0); ALT/SGPT 25 U/L (21-72); AST/SGOT 21 U/L (17-59); BLOOD UREA NITROGEN 18 mg/dL (9-20); CALCIUM 8.4 mg/dl (8.6-10.4); GFR AFRICAN-AMERICAN > 60; GFR NON-AFRICAN AMERICAN 50
[2017-09-02] MEDS: Clotrimazole 1% Cream 15 GM TUBE EXT SCH ×3 (10:13→17:42)
[2017-09-02] MEDS: Betamethasone Valerate 0.1% Lotion (60 ml) TOP SCH (10:14)
[2017-09-02] MEDS: Lactobacillus Acidophilus 500 MU Cap PO SCH ×2 (10:15→17:41)
[2017-09-02] MEDS: DUTASTERIDE 0.5 MG PO SCH (10:16)
--- NOTE | 2017-09-02 14:31 | CP.PCM.PN ---
Subjective - Date & Time of Evaluation Date of Evaluation: 09/02/17 Time of Evaluation: 14:29 - Subjective Subjective: CHIEF COMPLAINTS TODAY : GEN BODY PAIN S/P I&D 09/01 , nursing note STATES THAT C/S IS NOT MRSA , [employer] INFORMED . THERE IS NO FURTHER COMMUNICATION OR REPORT ROS. HEENT : N. PAIN IN NAPE Resp : No cough, wheezing ,pleuritic CP ,or hemoptysis Cardio : No anginal CP, PND, orthopnea, palpitation GI : No abd.pain, n/v ,diarrhea or GI bleeding . OFFICE DIRECTOR : No headache, vertigo, focal deficit. Musculoskel : No joint swelling , Derm : No rash Psych : Normal affect. Ext : No swelling ,calf pain PE. Pt. is alert awake in no distress. V.S As noted in the chart Head ,ear nose,throat and eyes : Normal. LARGE INDURATED MASS IN NAPE WITH ABSCESS IN EVOLUTION Neck : Supple with normal carotids. Lungs: Clear air entry. Heart : S1 & S2 normal with S4. No murmur. Abd : Soft non tender with normal bowel sounds. Neuro : Moves all ext. with no localized deficit. Ext : No edema with intact pulses.Non tender calves Derm : No rashes or decubitus ulcer. LABS/RADIOLOGY: C/S MRSA ASSESSMENT/PLAN : IV AB /IV TIGACYIN CONT LOCAL WOUND CARE Objective - Vital Signs/Intake and Output Vital Signs (last 24 hours): Temp Pulse Resp BP Pulse Ox 98.4 F 92 H 20 138/69 99 09/02/17 08:38 09/02/17 08:38 09/02/17 08:38 09/02/17 10:14 09/02/17 08:38 Intake and Output: 09/02/17 09/02/17 11:59 23:59 Intake Total 200 550 Balance 200 550 - Medications Medications: Current Medications Acetaminophen (Tylenol 325mg Tab) 650 mg PO Q6 PRN PRN Reason: pain or temp 100.4 and above Last Admin: 08/27/17 00:06 Dose: 650 mg Aspirin (Ecotrin) 81 mg PO DAILY [facility] Last Admin: 09/02/17 10:14 Dose: 81 mg Betamethasone Valerate (Betamethasone Valerate 0.1%) 0 ml TOP DAILY [facility] Last Admin: 09/02/17 10:14 Dose: 60 ml Clotrimazole (Lotrimin 1%) 0 gm EXT TID [facility] Last Admin: 09/02/17 14:15 Dose: 1 applic Doxazosin Mesylate (Cardura) 4 mg PO DAILY [facility] Last Admin: 09/02/17 10:15 Dose: 4 mg Furosemide (Lasix) 40 mg PO DAILY [facility] Last Admin: 09/02/17 10:14 Dose: 40 mg Glipizide (Glucotrol) 10 mg PO BID [facility] Last Admin: 09/02/17 10:14 Dose: 10 mg Guaifenesin (Robitussin) 100 mg PO Q4H PRN PRN Reason: Cough Last Admin: 09/02/17 14:15 Dose: 100 mg Home Med (Patient's Own Medication) 1 tab PO DAILY [facility] Last Admin: 09/02/17 10:16 Dose: 1 tab Hydromorphone HCl (Dilaudid) 1 mg IVP Q4H PRN PRN Reason: pain 6-10 Last Admin: 08/29/17 22:04 Dose: 1 mg Piperacillin Sod/Tazobactam Sod (Zosyn 2.25 Gm Iv Premix) 2.25 gm in 50 mls @ 100 mls/hr IVPB Q6H [facility] Last Admin: 09/02/17 11:27 Dose: 100 mls/hr Insulin Human Regular (Novolin R) 0 unit SC ACHS [facility] PRN Reason: Protocol Last Admin: 09/02/17 12:20 Dose: 2 unit Lactobacillus Acidophilus (Bacid Acidophilus) 1 cap PO BID [facility] Last Admin: 09/02/17 10:15 Dose: 1 cap Lisinopril (Zestril) 2.5 mg PO DAILY [facility] Last Admin: 09/02/17 10:15 Dose: 2.5 mg Metformin HCl (Glucophage) 1,000 mg PO BID [facility] Last Admin: 09/02/17 10:14 Dose: 1,000 mg Tamsulosin HCl (Flomax) 0.4 mg PO DAILY [facility] Last Admin: 09/02/17 10:14 Dose: 0.4 mg Ticagrelor (Brilinta) 90 mg PO BID [facility] Last Admin: 09/02/17 10:15 Dose: 90 mg Tramadol HCl (Ultram) 25 mg PO Q8 PRN PRN Reason: Pain, moderate (4-7) Last Admin: 08/29/17 06:31 Dose: 25 mg - Labs Labs: 09/02/17 07:23 09/02/17 07:23 PT 12.6 SECONDS (9.7-12.2) H 08/24/17 22:31 INR 1.1 08/24/17 22:31 APTT 30 SECONDS (21-34) 08/24/17 22:31 Assessment and Plan (1) Carbuncle, neck Status: Acute (2) Diabetes mellitus Status: Chronic (3) Renal insufficiency Status: Chronic (4) CAD (coronary artery disease) Status: Chronic
[2017-09-03] MEDS: guaiFENesin 100 mg/5 ml Syrup UD PO PRN ×3 (02:54→18:04)
[2017-09-03] MEDS: Piperacill/Tazo 2.25gm in Dex 2.25 GM/50 ML BAG IVPB SCH ×4 (04:10→22:19)
[2017-09-03] MEDS: (Novolin R) Insulin Human Regular 100 units/ml vial SC SCH ×4 (07:58→21:29)
[2017-09-03 08:45] LABS: BASO % 0.4 % (0.0-2.0); EOS # 0.8 K/uL (0.0-0.7); EOS % 10.7 % (0.0-4.0); HEMOGLOBIN 8.9 g/dL (12.0-18.0); LYMPH # 1.2 K/uL (1.0-4.3); LYMPH % 14.9 % (20.0-40.0); MEAN CELL VOLUME 91.4 fL (80.0-94.0); MEAN CORPUSCULAR HEMOGLOBIN 31.3 pg (27.0-31.0); MEAN CORPUSCULAR HGB CONC 34.2 g/dL (33.0-37.0); MONO # 0.6 K/uL (0.0-0.8); MONO % 8.2 % (0.0-10.0); NEUT # 5.2 K/uL (1.8-7.0); NEUT % 65.8 % (50.0-75.0); RBC 2.86 Mil/uL (4.40-5.90); RED CELL DISTRIBUTION WIDTH 12.8 % (11.5-14.5); WHITE BLOOD COUNT 7.9 K/uL (4.8-10.8)
[2017-09-03 09:10] LABS: ALBUMIN 3.4 g/dL (3.5-5.0); CALCIUM 8.3 mg/dl (8.6-10.4)
[2017-09-03] MEDS: Lactobacillus Acidophilus 500 MU Cap PO SCH ×2 (10:14→17:26)
[2017-09-03] MEDS: DUTASTERIDE 0.5 MG PO SCH (10:15)
[2017-09-03] MEDS: Clotrimazole 1% Cream 15 GM TUBE EXT SCH ×3 (10:17→17:37)
[2017-09-03] MEDS: Betamethasone Valerate 0.1% Lotion (60 ml) TOP SCH (10:25)
--- NOTE | 2017-09-03 12:14 | CP.PCM.PN ---
Subjective - Date & Time of Evaluation Date of Evaluation: 09/03/17 Time of Evaluation: 12:14 - Subjective Subjective: CHIEF COMPLAINTS TODAY : GEN BODY PAIN S/P I&D 09/01 , nursing note STATES THAT C/S IS NOT MRSA , [employer] INFORMED . THERE IS NO FURTHER COMMUNICATION OR REPORT ROS. HEENT : N. PAIN IN NAPE Resp : No cough, wheezing ,pleuritic CP ,or hemoptysis Cardio : No anginal CP, PND, orthopnea, palpitation GI : No abd.pain, n/v ,diarrhea or GI bleeding . NURSE TECHNICIAN : No headache, vertigo, focal deficit. Musculoskel : No joint swelling , Derm : No rash Psych : Normal affect. Ext : No swelling ,calf pain PE. Pt. is alert awake in no distress. V.S As noted in the chart Head ,ear nose,throat and eyes : Normal. LARGE INDURATED MASS IN NAPE WITH ABSCESS IN EVOLUTION Neck : Supple with normal carotids. Lungs: Clear air entry. Heart : S1 & S2 normal with S4. No murmur. Abd : Soft non tender with normal bowel sounds. Neuro : Moves all ext. with no localized deficit. Ext : No edema with intact pulses.Non tender calves Derm : No rashes or decubitus ulcer. LABS/RADIOLOGY: C/S MRSA ASSESSMENT/PLAN : IV AB /IV TIGACYIN CONT LOCAL WOUND CARE Objective - Vital Signs/Intake and Output Vital Signs (last 24 hours): Temp Pulse Resp BP Pulse Ox 98.5 F 83 20 123/67 93 L 09/03/17 08:00 09/03/17 08:00 09/03/17 08:00 09/03/17 10:16 09/03/17 08:00 Intake and Output: 09/03/17 09/03/17 11:59 23:59 Intake Total 250 Balance 250 - Medications Medications: Current Medications Acetaminophen (Tylenol 325mg Tab) 650 mg PO Q6 PRN PRN Reason: pain or temp 100.4 and above Last Admin: 08/27/17 00:06 Dose: 650 mg Aspirin (Ecotrin) 81 mg PO DAILY [facility] Last Admin: 09/03/17 10:14 Dose: 81 mg Betamethasone Valerate (Betamethasone Valerate 0.1%) 0 ml TOP DAILY [facility] Last Admin: 09/03/17 10:25 Dose: 60 ml Clotrimazole (Lotrimin 1%) 0 gm EXT TID [facility] Last Admin: 09/03/17 10:17 Dose: 1 applic Doxazosin Mesylate (Cardura) 4 mg PO DAILY [facility] Last Admin: 09/03/17 10:15 Dose: 4 mg Furosemide (Lasix) 40 mg PO DAILY [facility] Last Admin: 09/03/17 10:16 Dose: 40 mg Glipizide (Glucotrol) 10 mg PO BID [facility] Last Admin: 09/03/17 10:14 Dose: 10 mg Guaifenesin (Robitussin) 100 mg PO Q4H PRN PRN Reason: Cough Last Admin: 09/03/17 10:13 Dose: 100 mg Home Med (Patient's Own Medication) 1 tab PO DAILY [facility] Last Admin: 09/03/17 10:15 Dose: 1 tab Piperacillin Sod/Tazobactam Sod (Zosyn 2.25 Gm Iv Premix) 2.25 gm in 50 mls @ 100 mls/hr IVPB Q6H [facility] Last Admin: 09/03/17 10:15 Dose: 100 mls/hr Insulin Human Regular (Novolin R) 0 unit SC ACHS [facility] PRN Reason: Protocol Last Admin: 09/03/17 07:58 Dose: Not Given Lactobacillus Acidophilus (Bacid Acidophilus) 1 cap PO BID [facility] Last Admin: 09/03/17 10:14 Dose: 1 cap Lisinopril (Zestril) 2.5 mg PO DAILY [facility] Last Admin: 09/03/17 10:14 Dose: 2.5 mg Metformin HCl (Glucophage) 1,000 mg PO BID [facility] Last Admin: 09/03/17 10:15 Dose: 1,000 mg Tamsulosin HCl (Flomax) 0.4 mg PO DAILY [facility] Last Admin: 09/03/17 10:14 Dose: 0.4 mg Ticagrelor (Brilinta) 90 mg PO BID [facility] Last Admin: 09/03/17 10:15 Dose: 90 mg Tramadol HCl (Ultram) 25 mg PO Q8 PRN PRN Reason: Pain, moderate (4-7) Last Admin: 08/29/17 06:31 Dose: 25 mg - Labs Labs: 09/03/17 08:19 09/03/17 08:19 PT 12.6 SECONDS (9.7-12.2) H 08/24/17 22:31 INR 1.1 08/24/17 22:31 APTT 30 SECONDS (21-34) 08/24/17 22:31 Assessment and Plan (1) Carbuncle, neck Status: Acute (2) Diabetes mellitus Status: Chronic (3) Renal insufficiency Status: Chronic (4) CAD (coronary artery disease) Status: Chronic
--- NOTE | 2017-09-03 15:19 | CP.PCM.PN ---
Subjective - Date & Time of Evaluation Date of Evaluation: 09/03/17 Time of Evaluation: 10:00 - Subjective Subjective: c/o pain has large wound over c spine consider MRI Objective - Vital Signs/Intake and Output Vital Signs (last 24 hours): Temp Pulse Resp BP Pulse Ox 98.5 F 83 20 123/67 93 L 09/03/17 08:00 09/03/17 08:00 09/03/17 08:00 09/03/17 10:16 09/03/17 08:00 Intake and Output: 09/03/17 09/03/17 06:59 18:59 Intake Total 600 450 Balance 600 450 - Medications Medications: Current Medications Acetaminophen (Tylenol 325mg Tab) 650 mg PO Q6 PRN PRN Reason: pain or temp 100.4 and above Last Admin: 08/27/17 00:06 Dose: 650 mg Aspirin (Ecotrin) 81 mg PO DAILY [facility] Last Admin: 09/03/17 10:14 Dose: 81 mg Betamethasone Valerate (Betamethasone Valerate 0.1%) 0 ml TOP DAILY [facility] Last Admin: 09/03/17 10:25 Dose: 60 ml Clotrimazole (Lotrimin 1%) 0 gm EXT TID [facility] Last Admin: 09/03/17 14:04 Dose: 1 applic Doxazosin Mesylate (Cardura) 4 mg PO DAILY [facility] Last Admin: 09/03/17 10:15 Dose: 4 mg Furosemide (Lasix) 40 mg PO DAILY [facility] Last Admin: 09/03/17 10:16 Dose: 40 mg Glipizide (Glucotrol) 10 mg PO BID [facility] Last Admin: 09/03/17 10:14 Dose: 10 mg Guaifenesin (Robitussin) 100 mg PO Q4H PRN PRN Reason: Cough Last Admin: 09/03/17 10:13 Dose: 100 mg Home Med (Patient's Own Medication) 1 tab PO DAILY [facility] Last Admin: 09/03/17 10:15 Dose: 1 tab Piperacillin Sod/Tazobactam Sod (Zosyn 2.25 Gm Iv Premix) 2.25 gm in 50 mls @ 100 mls/hr IVPB Q6H [facility] Last Admin: 09/03/17 10:15 Dose: 100 mls/hr Insulin Human Regular (Novolin R) 0 unit SC ACHS [facility] PRN Reason: Protocol Last Admin: 09/03/17 12:20 Dose: Not Given Lactobacillus Acidophilus (Bacid Acidophilus) 1 cap PO BID [facility] Last Admin: 09/03/17 10:14 Dose: 1 cap Lisinopril (Zestril) 2.5 mg PO DAILY [facility] Last Admin: 09/03/17 10:14 Dose: 2.5 mg Metformin HCl (Glucophage) 1,000 mg PO BID [facility] Last Admin: 09/03/17 10:15 Dose: 1,000 mg Tamsulosin HCl (Flomax) 0.4 mg PO DAILY [facility] Last Admin: 09/03/17 10:14 Dose: 0.4 mg Ticagrelor (Brilinta) 90 mg PO BID [facility] Last Admin: 09/03/17 10:15 Dose: 90 mg Tramadol HCl (Ultram) 25 mg PO Q8 PRN PRN Reason: Pain, moderate (4-7) Last Admin: 08/29/17 06:31 Dose: 25 mg - Labs Labs: 09/03/17 08:19 09/03/17 08:19 PT 12.6 SECONDS (9.7-12.2) H 08/24/17 22:31 INR 1.1 08/24/17 22:31 APTT 30 SECONDS (21-34) 08/24/17 22:31 - Constitutional Appears: Non-toxic, Cachectic, Chronically Ill - Head Exam Head Exam: NORMOCEPHALIC - Eye Exam Eye Exam: PERRL. absent: Scleral icterus - ENT Exam ENT Exam: Mucous Membranes Dry - Neck Exam Neck Exam: absent: Lymphadenopathy - Respiratory Exam Respiratory Exam: Decreased Breath Sounds - Cardiovascular Exam Cardiovascular Exam: REGULAR RHYTHM - GI/Abdominal Exam GI & Abdominal Exam: Distended - Rectal Exam Rectal Exam: Deferred - Exam Exam: NORMAL INSPECTION - Extremities Exam Extremities Exam: absent: Pedal Edema - Back Exam Back Exam: absent: CVA tenderness (L), CVA tenderness (R) Assessment and Plan (1) Abscess Status: Acute (2) Abscess of multiple sites Status: Acute (3) Carbuncle, neck Status: Acute (4) Cellulitis Status: Acute (5) Diabetes mellitus Status: Chronic (6) Renal insufficiency Status: Chronic - Assessment and Plan (Free Text) Assessment: consider MRI
[2017-09-04] MEDS ORDERED: Dextrose 50% SYRINGE Inj (50 ml) IV STA (02:21)
[2017-09-04] MEDS: Piperacill/Tazo 2.25gm in Dex 2.25 GM/50 ML BAG IVPB SCH ×4 (05:19→22:02)
[2017-09-04 06:18] LABS: BASO % 0.3 % (0.0-2.0); EOS # 0.8 K/uL (0.0-0.7); EOS % 9.4 % (0.0-4.0); HEMOGLOBIN 8.5 g/dL (12.0-18.0); LYMPH # 1.2 K/uL (1.0-4.3); LYMPH % 14.7 % (20.0-40.0); MEAN CELL VOLUME 90.8 fL (80.0-94.0); MEAN CORPUSCULAR HGB CONC 34.1 g/dL (33.0-37.0); MEAN PLATELET VOLUME 7.7 fL (7.2-11.7); MONO # 0.6 K/uL (0.0-0.8); MONO % 7.1 % (0.0-10.0); NEUT # 5.7 K/uL (1.8-7.0); NEUT % 68.5 % (50.0-75.0); RBC 2.74 Mil/uL (4.40-5.90); RED CELL DISTRIBUTION WIDTH 12.8 % (11.5-14.5); WHITE BLOOD COUNT 8.3 K/uL (4.8-10.8)
[2017-09-04 06:53] LABS: ALBUMIN 3.4 g/dL (3.5-5.0)
[2017-09-04] MEDS: (Novolin R) Insulin Human Regular 100 units/ml vial SC SCH ×4 (08:25→21:16)
[2017-09-04] MEDS: Lactobacillus Acidophilus 500 MU Cap PO SCH ×2 (11:16→17:20)
[2017-09-04] MEDS: DUTASTERIDE 0.5 MG PO SCH (11:19)
[2017-09-04] MEDS: Clotrimazole 1% Cream 15 GM TUBE EXT SCH ×3 (11:27→17:25)
[2017-09-04] MEDS: Betamethasone Valerate 0.1% Lotion (60 ml) TOP SCH (11:30)
--- NOTE | 2017-09-04 11:55 | CP.PCM.PN ---
Subjective - Date & Time of Evaluation Date of Evaluation: 09/04/17 Time of Evaluation: 07:00 - Subjective Subjective: going for MRI afeb nad Objective - Vital Signs/Intake and Output Vital Signs (last 24 hours): Temp Pulse Resp BP Pulse Ox 97.7 F 78 20 113/63 97 09/04/17 07:58 09/04/17 07:58 09/04/17 07:58 09/04/17 11:15 09/04/17 07:58 Intake and Output: 09/04/17 09/04/17 06:59 18:59 Intake Total 900 Balance 900 - Medications Medications: Current Medications Acetaminophen (Tylenol 325mg Tab) 650 mg PO Q6 PRN PRN Reason: pain or temp 100.4 and above Last Admin: 08/27/17 00:06 Dose: 650 mg Aspirin (Ecotrin) 81 mg PO DAILY [facility] Last Admin: 09/04/17 11:14 Dose: 81 mg Betamethasone Valerate (Betamethasone Valerate 0.1%) 0 ml TOP DAILY [facility] Last Admin: 09/03/17 10:25 Dose: 60 ml Clotrimazole (Lotrimin 1%) 0 gm EXT TID [facility] Last Admin: 09/04/17 11:27 Dose: 1 applic Doxazosin Mesylate (Cardura) 4 mg PO DAILY [facility] Last Admin: 09/04/17 11:16 Dose: 4 mg Furosemide (Lasix) 40 mg PO DAILY [facility] Last Admin: 09/04/17 11:15 Dose: 40 mg Glipizide (Glucotrol) 10 mg PO BID [facility] Last Admin: 09/03/17 17:26 Dose: 10 mg Guaifenesin (Robitussin) 100 mg PO Q4H PRN PRN Reason: Cough Last Admin: 09/03/17 18:04 Dose: 100 mg Home Med (Patient's Own Medication) 1 tab PO DAILY [facility] Last Admin: 09/04/17 11:19 Dose: 1 tab Piperacillin Sod/Tazobactam Sod (Zosyn 2.25 Gm Iv Premix) 2.25 gm in 50 mls @ 100 mls/hr IVPB Q6H [facility] Last Admin: 09/04/17 11:26 Dose: 100 mls/hr Insulin Human Regular (Novolin R) 0 unit SC ACHS [facility] PRN Reason: Protocol Lactobacillus Acidophilus (Bacid Acidophilus) 1 cap PO BID [facility] Last Admin: 09/04/17 11:16 Dose: 1 cap Lisinopril (Zestril) 2.5 mg PO DAILY [facility] Last Admin: 09/04/17 11:16 Dose: 2.5 mg Metformin HCl (Glucophage) 1,000 mg PO BID [facility] Last Admin: 09/03/17 17:26 Dose: 1,000 mg Tamsulosin HCl (Flomax) 0.4 mg PO DAILY [facility] Last Admin: 09/04/17 11:14 Dose: 0.4 mg Ticagrelor (Brilinta) 90 mg PO BID [facility] Last Admin: 09/04/17 11:17 Dose: 90 mg Tramadol HCl (Ultram) 25 mg PO Q8 PRN PRN Reason: Pain, moderate (4-7) Last Admin: 08/29/17 06:31 Dose: 25 mg - Labs Labs: 09/04/17 06:06 09/04/17 06:06 PT 12.6 SECONDS (9.7-12.2) H 08/24/17 22:31 INR 1.1 08/24/17 22:31 APTT 30 SECONDS (21-34) 08/24/17 22:31 - Constitutional Appears: Non-toxic, Chronically Ill - Head Exam Head Exam: NORMOCEPHALIC - Eye Exam Eye Exam: absent: Scleral icterus - ENT Exam ENT Exam: Mucous Membranes Dry - Neck Exam Neck Exam: absent: Lymphadenopathy - Respiratory Exam Respiratory Exam: Decreased Breath Sounds - Cardiovascular Exam Cardiovascular Exam: REGULAR RHYTHM Assessment and Plan (1) Abscess Status: Acute (2) Abscess of multiple sites Status: Acute (3) Carbuncle, neck Status: Acute (4) Cellulitis Status: Acute (5) Diabetes mellitus Status: Chronic (6) Renal insufficiency Status: Chronic
--- NOTE | 2017-09-04 13:20 | CP.PCM.PN ---
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 THERE IS NO FURTHER COMMUNICATION OR REPORT ROS. HEENT : N. PAIN IN NAPE Resp : No cough, wheezing ,pleuritic CP ,or hemoptysis Cardio : No anginal CP, PND, orthopnea, palpitation GI : No abd.pain, n/v ,diarrhea or GI bleeding . 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 Musculoskel : No joint swelling , Derm : No rash Psych : Normal affect. Ext : No swelling ,calf pain PE. Pt. is alert awake in no distress. V.S As noted in the chart Head ,ear nose,throat and eyes : Normal. LARGE INDURATED MASS IN NAPE WITH ABSCESS IN EVOLUTION Neck : Supple with normal carotids. Lungs: Clear air entry. Heart : S1 & S2 normal with S4. No murmur. Abd : Soft non tender with normal bowel sounds. Neuro : Moves all ext. with no localized deficit. Ext : No edema with intact pulses.Non tender calves Derm : No rashes or decubitus ulcer. LABS/RADIOLOGY: C/S MRSA ASSESSMENT/PLAN : IV AB /IV TIGACYIN CONT LOCAL WOUND CARE picc line MRI NECK KIEL Objective - Vital Signs/Intake and Output Vital Signs (last 24 hours): Temp Pulse Resp BP Pulse Ox 97.7 F 78 20 113/63 97 09/04/17 07:58 09/04/17 07:58 09/04/17 07:58 09/04/17 11:15 09/04/17 07:58 Intake and Output: 09/04/17 09/04/17 11:59 23:59 Intake Total 500 Balance 500 - Medications Medications: Current Medications Acetaminophen (Tylenol 325mg Tab) 650 mg PO Q6 PRN PRN Reason: pain or temp 100.4 and above Last Admin: 08/27/17 00:06 Dose: 650 mg Aspirin (Ecotrin) 81 mg PO DAILY [facility] Last Admin: 09/04/17 11:14 Dose: 81 mg Betamethasone Valerate (Betamethasone Valerate 0.1%) 0 ml TOP DAILY [facility] Last Admin: 09/04/17 11:30 Dose: 1 ml Clotrimazole (Lotrimin 1%) 0 gm EXT TID [facility] Last Admin: 09/04/17 11:27 Dose: 1 applic Doxazosin Mesylate (Cardura) 4 mg PO DAILY [facility] Last Admin: 09/04/17 11:16 Dose: 4 mg Furosemide (Lasix) 40 mg PO DAILY [facility] Last Admin: 09/04/17 11:15 Dose: 40 mg Glipizide (Glucotrol) 10 mg PO BID [facility] Last Admin: 09/03/17 17:26 Dose: 10 mg Guaifenesin (Robitussin) 100 mg PO Q4H PRN PRN Reason: Cough Last Admin: 09/03/17 18:04 Dose: 100 mg Home Med (Patient's Own Medication) 1 tab PO DAILY [facility] Last Admin: 09/04/17 11:19 Dose: 1 tab Piperacillin Sod/Tazobactam Sod (Zosyn 2.25 Gm Iv Premix) 2.25 gm in 50 mls @ 100 mls/hr IVPB Q6H [facility] Last Admin: 09/04/17 11:26 Dose: 100 mls/hr Insulin Human Regular (Novolin R) 0 unit SC ACHS [facility] PRN Reason: Protocol Last Admin: 09/04/17 12:40 Dose: 1 unit Lactobacillus Acidophilus (Bacid Acidophilus) 1 cap PO BID [facility] Last Admin: 09/04/17 11:16 Dose: 1 cap Lisinopril (Zestril) 2.5 mg PO DAILY [facility] Last Admin: 09/04/17 11:16 Dose: 2.5 mg Metformin HCl (Glucophage) 1,000 mg PO BID [facility] Last Admin: 09/03/17 17:26 Dose: 1,000 mg Tamsulosin HCl (Flomax) 0.4 mg PO DAILY [facility] Last Admin: 09/04/17 11:14 Dose: 0.4 mg Ticagrelor (Brilinta) 90 mg PO BID [facility] Last Admin: 09/04/17 11:17 Dose: 90 mg Tramadol HCl (Ultram) 25 mg PO Q8 PRN PRN Reason: Pain, moderate (4-7) Last Admin: 08/29/17 06:31 Dose: 25 mg - Labs Labs: 09/04/17 06:06 09/04/17 06:06 PT 12.6 SECONDS (9.7-12.2) H 08/24/17 22:31 INR 1.1 08/24/17 22:31 APTT 30 SECONDS (21-34) 08/24/17 22:31 Assessment and Plan (1) Carbuncle, neck Status: Acute (2) Diabetes mellitus Status: Chronic (3) Renal insufficiency Status: Chronic (4) CAD (coronary artery disease) Status: Chronic
--- NOTE | 2017-09-04 15:03 | RAD ---
HISTORY: verify left PICC COMPARISON: 03/13/2017 FINDINGS: LUNGS: No active pulmonary disease. PLEURA: No significant pleural effusion identified, no pneumothorax apparent. CARDIOVASCULAR: Normal heart size. New left PICC catheter terminates just above the level of the cavoatrial junction. OSSEOUS STRUCTURES: No significant abnormalities. VISUALIZED UPPER ABDOMEN: Normal. OTHER FINDINGS: None. IMPRESSION: New left PICC catheter terminates above left cavoatrial junction. Otherwise unremarkable.
[2017-09-04] MEDS: guaiFENesin 100 mg/5 ml Syrup UD PO PRN (22:39)
[2017-09-05] MEDS: Piperacill/Tazo 2.25gm in Dex 2.25 GM/50 ML BAG IVPB SCH ×4 (05:19→22:00)
[2017-09-05 08:03] LABS: BASO % 0.4 % (0.0-2.0); EOS # 0.7 K/uL (0.0-0.7); EOS % 11.6 % (0.0-4.0); HEMOGLOBIN 8.4 g/dL (12.0-18.0); LYMPH # 1.3 K/uL (1.0-4.3); LYMPH % 21.2 % (20.0-40.0); MEAN CELL VOLUME 90.8 fL (80.0-94.0); MEAN CORPUSCULAR HEMOGLOBIN 30.6 pg (27.0-31.0); MEAN CORPUSCULAR HGB CONC 33.7 g/dL (33.0-37.0); MEAN PLATELET VOLUME 8.2 fL (7.2-11.7); MONO # 0.4 K/uL (0.0-0.8); MONO % 6.6 % (0.0-10.0); NEUT # 3.6 K/uL (1.8-7.0); NEUT % 60.2 % (50.0-75.0); RBC 2.76 Mil/uL (4.40-5.90); RED CELL DISTRIBUTION WIDTH 12.5 % (11.5-14.5); WHITE BLOOD COUNT 5.9 K/uL (4.8-10.8)
[2017-09-05 08:25] LABS: ALBUMIN 3.5 g/dL (3.5-5.0); ALT/SGPT 24 U/L (21-72); AST/SGOT 17 U/L (17-59); BLOOD UREA NITROGEN 26 mg/dL (9-20); CALCIUM 8.5 mg/dl (8.6-10.4); GFR AFRICAN-AMERICAN > 60; GFR NON-AFRICAN AMERICAN 50
[2017-09-05] MEDS: (Novolin R) Insulin Human Regular 100 units/ml vial SC SCH ×4 (08:30→21:49)
--- NOTE | 2017-09-05 10:27 | MRI ---
PROCEDURE: MRI NECK WITHOUT CONTRAST HISTORY: Neck abscess COMPARISON: None. TECHNIQUE: Multiplanar multisequence MR images of the neck were obtained without gadolinium enhancement. FINDINGS: Please note this examination is limited in the absence of intravenous contrast. NASOPHARYNX: Within normal limits. SUPRAHYOID NECK: The oropharynx, oral cavity, parapharyngeal space and retropharyngeal space are within normal limits. INFRAHYOID NECK: The larynx, hypopharynx, and supraglottic space are grossly normal in appearance. Vocal cords intact. MASS: No bulky mass. GLANDS: Parotid and submandibular glands unremarkable. Normal size thyroid gland, without nodule. LYMPH NODES: No lymphadenopathy. VASCULAR STRUCTURES: Unremarkable. OTHER FINDINGS: There is extensive subcutaneous edema and inflammation involving the right posterior inferior neck and shoulder region. There is also moderate edema in the right trapezius muscle. There is no discrete drainable fluid collection. There are presumable postsurgical changes of prior incision and drainage. There is moderate degenerative disc disease in the cervical spine with spinal canal stenosis from C3-4 to C4-5. There is also mild canal stenosis at C5-6. IMPRESSION: Examination is limited in the absence of intravenous contrast Findings are most compatible with cellulitis and presumable myositis in the right posterior inferior neck and shoulder. No discrete drainable fluid collection. A preliminary report was provided by [employer] [facility].
[2017-09-05] MEDS: Lactobacillus Acidophilus 500 MU Cap PO SCH ×2 (10:34→17:11)
[2017-09-05] MEDS: Clotrimazole 1% Cream 15 GM TUBE EXT SCH ×3 (10:35→17:12)
[2017-09-05] MEDS: Betamethasone Valerate 0.1% Lotion (60 ml) TOP SCH (10:35)
[2017-09-05] MEDS: DUTASTERIDE 0.5 MG PO SCH (11:00)
--- NOTE | 2017-09-05 13:08 | CP.PCM.PN ---
Subjective - Date & Time of Evaluation Date of Evaluation: 09/05/17 Time of Evaluation: 13:08 - Subjective Subjective: CHIEF COMPLAINTS TODAY : Events noted . ID Dr. hall help appreciated. abscess draining but little. IMPROVIMG CELLULITUS BACK /UPPER PART OF NECK ROS. HEENT : N. Resp : No SOB wheezing, cough Cardio : No CP, PND orthopnea GI : No abd. 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 Musculoskel : N Ext. : Pedal pulses intact, no edema or calf pain Derm : cellulitis with a carbuncle below the neck and upper back s/p dressing improving 2 satellite lesions anterior chest, one scalp lesion dry and scabbing. Psych : N. PE. Pt. is alert awake in no distress. V.S As noted in the chart Head ,ear nose,throat and eyes : Normal. Neck : Supple with normal carotids. Lungs: Clear air entry. Heart : S1 & S2 normal . . No murmur. S4 + Abd : Soft non tender with normal bowel sounds. Neuro : Moves all ext. with no localized deficit. Ext : No edema with intact pulses. Neg. calf tenderness Derm : cellulitis with a carbuncle below the neck and upper back s/p dressing improving 2 satellite lesions anterior chest, one scalp lesion dry and scabbing. Radiology/Labs . labs reviewed. MRI NECK CONSISTENT WITH CELLULITIS AND MYOSITIS RIGHT POSTERIOR INFERIOR NECK/ SHOULDER. WOUND CULTURE 08/27/17 [facility] Asssessment : . CARBUNCLE NECK/ ABSCESS . CELLULITIS OF THE NECK AND UPPER BACK. . MULTIPLE SKIN ABSCESSES . DIABETES MELLITUS-2. . HYPERTENSION. , RENAL INSUFFICIENCY. Plan : CONTINUE iv ZOSYN 2.25 iv EVERY 6 HOURLY X 14 DAYS. PICC line care left upper arm when necessary. LOCAL WOUND CARE PER SURGERY. CASE DISCUSSED WITH pmd. Objective - Vital Signs/Intake and Output Vital Signs (last 24 hours): Temp Pulse Resp BP Pulse Ox 98 F 74 20 130/65 95 09/05/17 00:00 09/05/17 00:00 09/05/17 00:00 09/05/17 10:34 09/05/17 00:00 Intake and Output: 09/05/17 09/05/17 06:59 18:59 Intake Total 200 50 Balance 200 50 - Medications Medications: Current Medications Acetaminophen (Tylenol 325mg Tab) 650 mg PO Q6 PRN PRN Reason: pain or temp 100.4 and above Last Admin: 08/27/17 00:06 Dose: 650 mg Aspirin (Ecotrin) 81 mg PO DAILY [facility] Last Admin: 09/05/17 10:34 Dose: 81 mg Betamethasone Valerate (Betamethasone Valerate 0.1%) 0 ml TOP DAILY [facility] Last Admin: 09/05/17 10:35 Dose: Not Given Clotrimazole (Lotrimin 1%) 0 gm EXT TID [facility] Last Admin: 09/05/17 10:35 Dose: 1 applic Doxazosin Mesylate (Cardura) 4 mg PO DAILY [facility] Last Admin: 09/05/17 10:35 Dose: 4 mg Furosemide (Lasix) 40 mg PO DAILY [facility] Last Admin: 09/05/17 10:34 Dose: 40 mg Glipizide (Glucotrol) 10 mg PO BID [facility] Last Admin: 09/03/17 17:26 Dose: 10 mg Guaifenesin (Robitussin) 100 mg PO Q4H PRN PRN Reason: Cough Last Admin: 09/04/17 22:39 Dose: 100 mg Home Med (Patient's Own Medication) 1 tab PO DAILY [facility] Last Admin: 09/05/17 11:00 Dose: 1 tab Piperacillin Sod/Tazobactam Sod (Zosyn 2.25 Gm Iv Premix) 2.25 gm in 50 mls @ 100 mls/hr IVPB Q6H [facility] Last Admin: 09/05/17 11:39 Dose: 100 mls/hr Insulin Human Regular (Novolin R) 0 unit SC ACHS [facility] PRN Reason: Protocol Last Admin: 09/05/17 11:38 Dose: 5 unit Lactobacillus Acidophilus (Bacid Acidophilus) 1 cap PO BID [facility] Last Admin: 09/05/17 10:34 Dose: 1 cap Lisinopril (Zestril) 2.5 mg PO DAILY [facility] Last Admin: 09/05/17 10:34 Dose: 2.5 mg Metformin HCl (Glucophage) 1,000 mg PO BID [facility] Last Admin: 09/05/17 10:37 Dose: 1,000 mg Tamsulosin HCl (Flomax) 0.4 mg PO DAILY [facility] Last Admin: 09/05/17 10:34 Dose: 0.4 mg Ticagrelor (Brilinta) 90 mg PO BID [facility] Last Admin: 09/05/17 10:34 Dose: 90 mg Tramadol HCl (Ultram) 25 mg PO Q8 PRN PRN Reason: Pain, moderate (4-7) Last Admin: 08/29/17 06:31 Dose: 25 mg - Labs Labs: 09/05/17 07:45 09/05/17 07:45 PT 12.6 SECONDS (9.7-12.2) H 08/24/17 22:31 INR 1.1 08/24/17 22:31 APTT 30 SECONDS (21-34) 08/24/17 22:31 Assessment and Plan (1) Carbuncle, neck Status: Acute (2) Abscess of multiple sites Status: Acute (3) Cellulitis Status: Acute (4) Diabetes mellitus Status: Chronic (5) Renal insufficiency Status: Chronic
--- NOTE | 2017-09-05 13:20 | CP.PCM.PN ---
Subjective - Date & Time of Evaluation Date of Evaluation: 09/05/17 Time of Evaluation: 13:19 - Subjective Subjective: GEN BODY PAIN IMROVING ROS. HEENT : N. PAIN IN NAPE Resp : No cough, wheezing ,pleuritic CP ,or hemoptysis Cardio : No anginal CP, PND, orthopnea, palpitation GI : No abd.pain, n/v ,diarrhea or GI bleeding . 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 Musculoskel : No joint swelling , Derm : No rash Psych : Normal affect. Ext : No swelling ,calf pain PE. Pt. is alert awake in no distress. V.S As noted in the chart Head ,ear nose,throat and eyes : Normal. LARGE INDURATED MASS IN NAPE Lungs: Clear air entry. Heart : S1 & S2 normal with S4. No murmur. Abd : Soft non tender with normal bowel sounds. Neuro : Moves all ext. with no localized deficit. Ext : No edema with intact pulses.Non tender calves Derm : No rashes or decubitus ulcer. LABS/RADIOLOGY: C/S MRSA ASSESSMENT/PLAN : IV ZOSYN KIEL IN AM Objective - Vital Signs/Intake and Output Vital Signs (last 24 hours): Temp Pulse Resp BP Pulse Ox 98 F 74 20 130/65 95 09/05/17 00:00 09/05/17 00:00 09/05/17 00:00 09/05/17 10:34 09/05/17 00:00 Intake and Output: 09/05/17 09/05/17 11:59 23:59 Intake Total 50 Balance 50 - Medications Medications: Current Medications Acetaminophen (Tylenol 325mg Tab) 650 mg PO Q6 PRN PRN Reason: pain or temp 100.4 and above Last Admin: 08/27/17 00:06 Dose: 650 mg Aspirin (Ecotrin) 81 mg PO DAILY [facility] Last Admin: 09/05/17 10:34 Dose: 81 mg Betamethasone Valerate (Betamethasone Valerate 0.1%) 0 ml TOP DAILY [facility] Last Admin: 09/05/17 10:35 Dose: Not Given Clotrimazole (Lotrimin 1%) 0 gm EXT TID [facility] Last Admin: 09/05/17 10:35 Dose: 1 applic Doxazosin Mesylate (Cardura) 4 mg PO DAILY [facility] Last Admin: 09/05/17 10:35 Dose: 4 mg Furosemide (Lasix) 40 mg PO DAILY [facility] Last Admin: 09/05/17 10:34 Dose: 40 mg Glipizide (Glucotrol) 10 mg PO BID [facility] Last Admin: 09/03/17 17:26 Dose: 10 mg Guaifenesin (Robitussin) 100 mg PO Q4H PRN PRN Reason: Cough Last Admin: 09/04/17 22:39 Dose: 100 mg Home Med (Patient's Own Medication) 1 tab PO DAILY [facility] Last Admin: 09/05/17 11:00 Dose: 1 tab Piperacillin Sod/Tazobactam Sod (Zosyn 2.25 Gm Iv Premix) 2.25 gm in 50 mls @ 100 mls/hr IVPB Q6H [facility] Last Admin: 09/05/17 11:39 Dose: 100 mls/hr Insulin Human Regular (Novolin R) 0 unit SC ACHS [facility] PRN Reason: Protocol Last Admin: 09/05/17 11:38 Dose: 5 unit Lactobacillus Acidophilus (Bacid Acidophilus) 1 cap PO BID [facility] Last Admin: 09/05/17 10:34 Dose: 1 cap Lisinopril (Zestril) 2.5 mg PO DAILY [facility] Last Admin: 09/05/17 10:34 Dose: 2.5 mg Metformin HCl (Glucophage) 1,000 mg PO BID [facility] Last Admin: 09/05/17 10:37 Dose: 1,000 mg Tamsulosin HCl (Flomax) 0.4 mg PO DAILY [facility] Last Admin: 09/05/17 10:34 Dose: 0.4 mg Ticagrelor (Brilinta) 90 mg PO BID [facility] Last Admin: 09/05/17 10:34 Dose: 90 mg Tramadol HCl (Ultram) 25 mg PO Q8 PRN PRN Reason: Pain, moderate (4-7) Last Admin: 08/29/17 06:31 Dose: 25 mg - Labs Labs: 09/05/17 07:45 09/05/17 07:45 PT 12.6 SECONDS (9.7-12.2) H 08/24/17 22:31 INR 1.1 08/24/17 22:31 APTT 30 SECONDS (21-34) 08/24/17 22:31 Assessment and Plan (1) Carbuncle, neck Status: Acute (2) Diabetes mellitus Status: Chronic (3) Renal insufficiency Status: Chronic (4) CAD (coronary artery disease) Status: Chronic
[2017-09-05] MEDS: guaiFENesin 100 mg/5 ml Syrup UD PO PRN ×2 (17:13→21:15)
[2017-09-06] MEDS: Piperacill/Tazo 2.25gm in Dex 2.25 GM/50 ML BAG IVPB SCH ×2 (05:57→11:03)
[2017-09-06 07:32] LABS: BASO # 0.1 K/uL (0.0-0.2); BASO % 0.7 % (0.0-2.0); EOS # 0.7 K/uL (0.0-0.7); EOS % 7.9 % (0.0-4.0); HEMOGLOBIN 8.9 g/dL (12.0-18.0); LYMPH # 1.4 K/uL (1.0-4.3); LYMPH % 16.8 % (20.0-40.0); MEAN CELL VOLUME 90.6 fL (80.0-94.0); MEAN CORPUSCULAR HEMOGLOBIN 31.2 pg (27.0-31.0); MEAN CORPUSCULAR HGB CONC 34.4 g/dL (33.0-37.0); MEAN PLATELET VOLUME 7.9 fL (7.2-11.7); MONO # 0.5 K/uL (0.0-0.8); MONO % 5.5 % (0.0-10.0); NEUT # 5.9 K/uL (1.8-7.0); NEUT % 69.1 % (50.0-75.0); RBC 2.85 Mil/uL (4.40-5.90); RED CELL DISTRIBUTION WIDTH 12.8 % (11.5-14.5); WHITE BLOOD COUNT 8.6 K/uL (4.8-10.8)
[2017-09-06 07:58] LABS: ALBUMIN 3.5 g/dL (3.5-5.0); CALCIUM 8.6 mg/dl (8.6-10.4)
[2017-09-06] MEDS: (Novolin R) Insulin Human Regular 100 units/ml vial SC SCH ×2 (08:04→12:05)
[2017-09-06 08:12] VITALS: O2SAT 95
[2017-09-06] MEDS: Clotrimazole 1% Cream 15 GM TUBE EXT SCH (09:13)
[2017-09-06] MEDS: DUTASTERIDE 0.5 MG PO SCH (09:13)
[2017-09-06] MEDS: Lactobacillus Acidophilus 500 MU Cap PO SCH (09:15)
[2017-09-06] MEDS: Betamethasone Valerate 0.1% Lotion (60 ml) TOP SCH (09:15)
[2017-09-06] MEDS: guaiFENesin 100 mg/5 ml Syrup UD PO PRN (09:20)
[2017-09-06] MEDS ORDERED: Pneumococcal 23-Valent Vaccine IM ONE (12:53)
[2017-09-06] MEDS ORDERED: Influenza Vaccine 60 mcg/0.5 mL SYR (4YR UP) IM ONE (12:53)
--- NOTE | 2017-09-06 13:18 | CP.PCM.DIS ---
Provider - Provider Date of Admission: 08/24/17 22:52 Attending physician: Peri Vyas MD Time Spent in preparation of Discharge (in minutes): 30 Diagnosis - Discharge Diagnosis (1) Carbuncle, neck Status: Acute (2) Diabetes mellitus Status: Chronic (3) Renal insufficiency Status: Chronic (4) CAD (coronary artery disease) Status: Chronic Hospital Course - Lab Results Lab Results: Micro Results 09/01/17 08:39 Neck Gram Stain - Final 09/01/17 08:39 Neck Wound Culture - Final Staphylococcus Aureus 08/30/17 16:45 Neck Gram Stain - Final 08/30/17 16:45 Neck Wound Culture - Final Staphylococcus Aureus 08/27/17 21:08 Neck Gram Stain - Final 08/27/17 21:08 Neck Wound Culture - Final Staphylococcus Aureus 08/29/17 18:08 Abscess - Shoulder-Right Gram Stain - Final 08/29/17 18:08 Abscess - Shoulder-Right Wound Culture - Final Staphylococcus Aureus 08/26/17 09:00 Blood-Venous Blood Culture - Final NO GROWTH AFTER 5 DAYS 08/26/17 09:00 Blood-Venous Gram Stain - Final TEST NOT PERFORMED 08/25/17 23:38 Blood-Venous Blood Culture - Final NO GROWTH AFTER 5 DAYS 08/25/17 23:38 Blood-Venous Gram Stain - Final TEST NOT PERFORMED 08/24/17 23:30 Blood Blood Culture - Final NO GROWTH AFTER 5 DAYS 08/24/17 23:30 Blood Gram Stain - Final TEST NOT PERFORMED 08/24/17 23:00 Blood Blood Culture - Final NO GROWTH AFTER 5 DAYS 08/24/17 23:00 Blood Gram Stain - Final TEST NOT PERFORMED 08/25/17 22:22 Naris MRSA Culture (Admit) - Final MRSA NOT DETECTED Most Recent Lab Values WBC 8.6 K/uL (4.8-10.8) 09/06/17 07:16 RBC 2.85 Mil/uL (4.40-5.90) L 09/06/17 07:16 Hgb 8.9 g/dL (12.0-18.0) L 09/06/17 07:16 Hct 25.9 % (35.0-51.0) L 09/06/17 07:16 MCV 90.6 fL (80.0-94.0) 09/06/17 07:16 MCH 31.2 pg (27.0-31.0) H 09/06/17 07:16 MCHC 34.4 g/dL (33.0-37.0) 09/06/17 07:16 RDW 12.8 % (11.5-14.5) 09/06/17 07:16 Plt Count 341 K/uL (130-400) 09/06/17 07:16 MPV 7.9 fL (7.2-11.7) 09/06/17 07:16 Neut % (Auto) 69.1 % (50.0-75.0) 09/06/17 07:16 Lymph % (Auto) 16.8 % (20.0-40.0) L 09/06/17 07:16 [place] % (Auto) 5.5 % (0.0-10.0) 09/06/17 07:16 Eos % (Auto) 7.9 % (0.0-4.0) H 09/06/17 07:16 Baso % (Auto) 0.7 % (0.0-2.0) 09/06/17 07:16 Neut # 5.9 K/uL (1.8-7.0) 09/06/17 07:16 Lymph # 1.4 K/uL (1.0-4.3) 09/06/17 07:16 [place] # 0.5 K/uL (0.0-0.8) 09/06/17 07:16 Eos # 0.7 K/uL (0.0-0.7) 09/06/17 07:16 Baso # 0.1 K/uL (0.0-0.2) 09/06/17 07:16 Neutrophils % (Manual) 80 % (50-75) H 08/30/17 07:12 Band Neutrophils % 2 % (0-2) 08/30/17 07:12 Lymphocytes % (Manual) 8 % (20-40) L 08/30/17 07:12 Monocytes % (Manual) 5 % (0-10) 08/30/17 07:12 Eosinophils % (Manual) 3 % (0-4) 08/30/17 07:12 Basophils % (Manual) 1 % (0-2) 08/30/17 07:12 Myelocytes % 1 % (0-0) H 08/30/17 07:12 Toxic Granulation Present 08/27/17 07:22 Platelet Estimate Normal (NORMAL) 08/30/17 07:12 Large Platelets Present 08/30/17 07:12 Giant Platelets Present 08/27/17 07:22 RBC Morphology Normal 08/30/17 07:12 Polychromasia Slight 08/27/17 11:32 Hypochromasia (manual) Slight 08/27/17 11:32 Basophilic Stippling Slight 08/27/17 11:32 Anisocytosis (manual) Slight 08/27/17 11:32 ESR 109 mm/hr (0-15) H 08/25/17 06:55 PT 12.6 SECONDS (9.7-12.2) H 08/24/17 22:31 INR 1.1 08/24/17 22:31 APTT 30 SECONDS (21-34) 08/24/17 22:31 Sodium 132 mmol/L (132-148) 09/06/17 07:16 Potassium 4.5 mmol/L (3.6-5.2) 09/06/17 07:16 Chloride 97 mmol/L (98-107) L 09/06/17 07:16 Carbon Dioxide 28 mmol/L (22-30) 09/06/17 07:16 Anion Gap 12 (10-20) 09/06/17 07:16 BUN 32 mg/dL (9-20) H 09/06/17 07:16 Creatinine 1.6 mg/dL (0.8-1.5) H 09/06/17 07:16 Est GFR ( Amer) 52 09/06/17 07:16 Est GFR (Non-Af Amer) 43 09/06/17 07:16 POC Glucose (mg/dL) 286 mg/dL (65-110) H 09/06/17 11:28 Random Glucose 157 mg/dL (75-110) H 09/06/17 07:16 Calcium 8.6 mg/dl (8.6-10.4) 09/06/17 07:16 Total Bilirubin 0.3 mg/dL (0.2-1.3) 09/06/17 07:16 AST 18 U/L (17-59) 09/06/17 07:16 ALT 18 U/L (21-72) L D 09/06/17 07:16 Alkaline Phosphatase 60 U/L (38-126) 09/06/17 07:16 C-React Prot High Sens > 15.00 mg/L (1.00-3.00) H 08/25/17 06:55 Total Protein 7.1 g/dL (6.3-8.3) 09/06/17 07:16 Albumin 3.5 g/dL (3.5-5.0) 09/06/17 07:16 Globulin 3.6 gm/dL (2.2-3.9) 09/06/17 07:16 Albumin/Globulin Ratio 1.0 (1.0-2.1) 09/06/17 07:16 Triglycerides 211 mg/dL (0-149) H 08/25/17 06:55 Cholesterol 192 mg/dL (0-199) 08/25/17 06:55 LDL Cholesterol Direct 118 mg/dL (0-129) 08/25/17 06:55 HDL Cholesterol 28 mg/dL (30-70) L 08/25/17 06:55 Serum Ketones Negative (NEGATIVE) 08/24/17 22:31 - Hospital Course Hospital Course: PRESENTED TO PDMS OFFICE WITH ABSCESS IN NECK FEW DAYS PT HAS PAIN AND SWELLING IN THE NAPE MILD PURULENT DISCHARGE NO FEVER THE SWELLING INCREASED IN SIZE A/W SEVERE PAIN THERE WAS ALSO 2 SATELLITE LESIONS ON CHEST PT ADMITTED FOR CARBANCLE WITH T2DM PH. 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 POS FOR SA SEN TO METHI IV AB PER ID PT HAD 3 OR SESSIONS FOR I&D AND DEBRIDEMENT PT IS TRANSFERRED TO [facility] FOR FURTHER IV AB AND WOUND CARE Discharge Exam - Head Exam Head Exam: NORMOCEPHALIC Discharge Plan - Discharge Medications Prescriptions: Piperacillin/Tazobact 2.25gm [ZOSYN 2.25 gm in 0.9% 100 ml] 2.25 gm IV Q6H 14 Days bag - Follow Up Plan Condition: FAIR Disposition: HOME/ ROUTINE Instructions: Cellulitis (DC), Diabetes Mellitus Type 2 in Adults (DC) Referrals: Modesta Soliz MD [Staff Provider] - Ernesto Liz MD [Staff Provider] - Peri Vyas MD [Staff Provider] -
--- NOTE | 2017-09-06 13:19 | CP.PCM.PN ---
Subjective - Date & Time of Evaluation Date of Evaluation: 09/06/17 Time of Evaluation: 13:19 - Subjective Subjective: HIEF COMPLAINTS TODAY : AFEBRILE, DENIES PAIN NECK abscess draining but little. IMPROVIMG CELLULITUS BACK /UPPER PART OF NECK ROS. HEENT : N. Resp : No SOB wheezing, cough Cardio : No CP, PND orthopnea GI : No abd. Pain, n/v CHIEF OF PLANNING : No headache , focal deficit. Musculoskel : N Ext. : Pedal pulses intact, no edema or calf pain Derm : cellulitis with a carbuncle below the neck and upper back s/p dressing improving 2 satellite lesions anterior chest, one scalp lesion dry and scabbing. Psych : N. PE. Pt. is alert awake in no distress. V.S As noted in the chart Head ,ear nose,throat and eyes : Normal. Neck : Supple with normal carotids. Lungs: Clear air entry. Heart : S1 & S2 normal . . No murmur. S4 + Abd : Soft non tender with normal bowel sounds. Neuro : Moves all ext. with no localized deficit. Ext : No edema with intact pulses. Neg. calf tenderness Derm : cellulitis with a carbuncle below the neck and upper back s/p dressing improving 2 satellite lesions anterior chest, one scalp lesion dry and scabbing. Radiology/Labs . labs reviewed. CREAT 1.6 INCREASING MRI NECK CONSISTENT WITH CELLULITIS AND MYOSITIS RIGHT POSTERIOR INFERIOR NECK/ SHOULDER. WOUND CULTURE 08/27/17 MSSA Asssessment : . CARBUNCLE NECK/ ABSCESS . CELLULITIS OF THE NECK AND UPPER BACK. . MULTIPLE SKIN ABSCESSES . DIABETES MELLITUS-2. . HYPERTENSION. , RENAL INSUFFICIENCY. Plan : CONTINUE iv ZOSYN 2.25 iv EVERY 8 HOURLY X 14 DAYS. PICC line care left upper arm when necessary. LOCAL WOUND CARE PER SURGERY. CASE DISCUSSED WITH pmd. Objective - Vital Signs/Intake and Output Vital Signs (last 24 hours): Temp Pulse Resp BP Pulse Ox 97.9 F 86 20 110/64 95 09/06/17 08:09 09/06/17 08:09 09/06/17 08:09 09/06/17 09:14 09/06/17 08:09 Intake and Output: 09/06/17 09/06/17 06:59 18:59 Intake Total 450 Balance 450 - Medications Medications: Current Medications Acetaminophen (Tylenol 325mg Tab) 650 mg PO Q6 PRN PRN Reason: pain or temp 100.4 and above Last Admin: 08/27/17 00:06 Dose: 650 mg Aspirin (Ecotrin) 81 mg PO DAILY [facility] Last Admin: 09/06/17 09:14 Dose: 81 mg Betamethasone Valerate (Betamethasone Valerate 0.1%) 0 ml TOP DAILY [facility] Last Admin: 09/06/17 09:15 Dose: Not Given Clotrimazole (Lotrimin 1%) 0 gm EXT TID [facility] Last Admin: 09/06/17 09:13 Dose: 1 applic Doxazosin Mesylate (Cardura) 4 mg PO DAILY [facility] Last Admin: 09/06/17 09:15 Dose: 4 mg Furosemide (Lasix) 40 mg PO DAILY [facility] Last Admin: 09/06/17 09:14 Dose: 40 mg Glipizide (Glucotrol) 10 mg PO BID [facility] Last Admin: 09/03/17 17:26 Dose: 10 mg Guaifenesin (Robitussin) 100 mg PO Q4H PRN PRN Reason: Cough Last Admin: 09/06/17 09:20 Dose: 100 mg Home Med (Patient's Own Medication) 1 tab PO DAILY [facility] Last Admin: 09/06/17 09:13 Dose: 1 tab Piperacillin Sod/Tazobactam Sod (Zosyn 2.25 Gm Iv Premix) 2.25 gm in 50 mls @ 100 mls/hr IVPB Q6H [facility] Last Admin: 09/06/17 11:03 Dose: 100 mls/hr Insulin Human Regular (Novolin R) 0 unit SC ACHS [facility] PRN Reason: Protocol Last Admin: 09/06/17 12:05 Dose: 3 unit Lactobacillus Acidophilus (Bacid Acidophilus) 1 cap PO BID [facility] Last Admin: 09/06/17 09:15 Dose: 1 cap Lisinopril (Zestril) 2.5 mg PO DAILY [facility] Last Admin: 09/06/17 09:15 Dose: 2.5 mg Metformin HCl (Glucophage) 1,000 mg PO BID [facility] Last Admin: 09/06/17 09:13 Dose: 1,000 mg Pneumococcal Polyvalent Vaccine (Pneumovax 23 Vaccine) 0.5 ml IM .ONCE ONE Stop: 09/06/17 12:54 Last Admin: 09/06/17 12:55 Dose: Not Given Tamsulosin HCl (Flomax) 0.4 mg PO DAILY [facility] Last Admin: 09/06/17 09:14 Dose: 0.4 mg Ticagrelor (Brilinta) 90 mg PO BID [facility] Last Admin: 09/06/17 09:14 Dose: 90 mg Tramadol HCl (Ultram) 25 mg PO Q8 PRN PRN Reason: Pain, moderate (4-7) Last Admin: 08/29/17 06:31 Dose: 25 mg - Labs Labs: 09/06/17 07:16 09/06/17 07:16 PT 12.6 SECONDS (9.7-12.2) H 08/24/17 22:31 INR 1.1 08/24/17 22:31 APTT 30 SECONDS (21-34) 08/24/17 22:31 Assessment and Plan (1) Carbuncle, neck Status: Acute (2) Abscess of multiple sites Status: Acute (3) Cellulitis Status: Acute (4) Diabetes mellitus Status: Chronic (5) Renal insufficiency Status: Chronic
[2017-09-06 14:47] VITALS: BP 110/71; PULSE 83; TEMP 97.4
== END 2017-09-06 13:20 | disposition designated cancer center or children's hospital (05) | DRG 571 ==
LOC: C.ER 19:35 → C.9E 22:52 → C.3T 23:42
PROVIDERS: ADMIT Internal Medicine Cardiovascular Disease; ATTEND Internal Medicine Cardiovascular Disease
PROC: 0JBD0ZZ Excision of Right Upper Arm Subcutaneous Tissue and Fascia, Open Approach (ICD-10-PCS; 2017-08-29)
PROC: 0JB70ZZ Excision of Back Subcutaneous Tissue and Fascia, Open Approach (ICD-10-PCS; principal; 2017-08-29 18:00)
PROC: 0WJ60ZZ Inspection of Neck, Open Approach (ICD-10-PCS; 2017-08-30)
PROC: 0JD Subcutaneous Tissue and Fascia, Extraction (ICD-10-PCS; 2017-09-01)
PROC: 02HV33Z Insertion of Infusion Device into Superior Vena Cava, Percutaneous Approach (ICD-10-PCS; 2017-09-04)
DX: L02.414 Cutaneous abscess of left upper limb (principal); L02.11 Cutaneous abscess of neck; E11.9 Type 2 diabetes mellitus without complications; J44.9 Chronic obstructive pulmonary disease, unspecified; I25.10 Atherosclerotic heart disease of native coronary artery without angina pectoris; I10 Essential (primary) hypertension; L02.13 Carbuncle of neck; N40.0 Benign prostatic hyperplasia without lower urinary tract symptoms; Z87.01 Personal history of pneumonia (recurrent); Z95.5 Presence of coronary angioplasty implant and graft; Z79.4 Long term (current) use of insulin; N28.9 Disorder of kidney and ureter, unspecified

== ENCOUNTER 2018-07-03 10:34 | Emergency (ER) | payer MEDICARE, OTHER ==
[2018-07-03 10:35] VITALS: BMI 25.8
[2018-07-03 10:55] VITALS: BP 128/69; PULSE 83; RESP 20; TEMP 97.8; O2SAT 99
--- NOTE | 2018-07-03 10:59 | C.PDOC ---
History Of Present Illness 72 y/o male with history of prostate problems presents to ED with c/o bladder fullness and difficulty urinating since last night. Patient states he was able to have few drops of urine out this morning. Patient denies fever, chills, nausea, vomiting, hematuria, back pain or any other complaints at this time. Urologist: Dr. Torres. Time Seen by Provider: 07/03/18 10:54 Chief Complaint (Nursing): Male Genitourinary History Per: Patient History/Exam Limitations: no limitations Onset/Duration Of Symptoms: Days Current Symptoms Are (Timing): Still Present Past Medical History Reviewed: Historical Data, Nursing Documentation, Vital Signs Vital Signs: Last Vital Signs Temp 97.8 F 07/03/18 10:50 Pulse 83 07/03/18 10:50 Resp 20 07/03/18 10:50 BP 128/69 07/03/18 10:50 Pulse Ox 99 07/03/18 10:50 - Medical History PMH: Arthritis (R ARM FX; KNEE), Benign Prostatic Hyperplasia, Fractures (RIGHT ARM), HTN, Peripheral Edema, Pneumonia (1965) Surgical History: No Surg Hx - [facility] Procedures DRAINAGE OF L FOOT SUBCU/FASCIA, OPEN APPROACH (03/09/17) DRAINAGE OF LEFT FOOT SKIN, EXTERNAL APPROACH (03/09/17) EXCISION OF BACK SUBCU/FASCIA, OPEN APPROACH (08/24/17) EXCISION OF L FOOT SUBCU/FASCIA, OPEN APPROACH (03/09/17) EXCISION OF R UP ARM SUBCU/FASCIA, OPEN APPROACH (08/24/17) EXTRACTION OF ANT NECK SUBCU/FASCIA, OPEN APPROACH (08/24/17) INSERT INDWELLING CATH (04/08/15) INSERTION OF INFUSION DEV INTO SUP VENA CAVA, PERC APPROACH (08/24/17) INSPECTION OF NECK, OPEN APPROACH (08/24/17) NONEXCIS DEBRID OF WOUND, INFECT, OR BURN (01/31/13) OTHER SKIN & SUBQ I D (01/31/13) TRANSFER LEFT FOOT SKIN, EXTERNAL APPROACH (03/09/17) VENOUS CATHETERIZATION NEC (01/31/13) Family History: States: No Known Family Hx - Social History Hx Tobacco Use: No Hx Alcohol Use: No Hx Substance Use: No - Immunization History Hx Tetanus Toxoid Vaccination: No Hx Influenza Vaccination: No Hx Pneumococcal Vaccination: No Review Of Systems Constitutional: Negative for: Fever, Chills Gastrointestinal: Negative for: Nausea, Vomiting, Abdominal Pain Genitourinary: Positive for: Other (difficulty urinating, bladder fulness). Negative for: Dysuria Skin: Negative for: Rash Physical Exam - Physical Exam Appears: Non-toxic, No Acute Distress Skin: Warm, Dry, No Rash Head: Atraumatic, Normacephalic Eye(s): bilateral: Normal Inspection Oral Mucosa: Moist Neck: Normal ROM, Supple Cardiovascular: Rhythm Regular Respiratory: Normal Breath Sounds, No Rales, No Rhonchi, No Wheezing Gastrointestinal/Abdominal: Tenderness (low abdominal), Distention (low abdominal), Other (firm abdomen) Back: No CVA Tenderness Male Genital: No Testicular Swelling, No Scrotal Swelling, Circumcised Neurological/Psych: Oriented x3, Normal Speech, Normal Cognition ED Course And Treatment O2 Sat by Pulse Oximetry: 99 (RA) Pulse Ox Interpretation: Normal Medical Decision Making Medical Decision Making: Impression: urinary retention Progress: Bladder scan shows >999cc. 1058 RN inserted kendrick catheter and clear urine drained into bag; total of 1200cc. Patient tolerated well Disposition Counseled Patient/Family Regarding: Diagnosis, Need For Followup, Rx Given - Disposition Referrals: Peri Vyas MD [Staff Provider] - Oseas Torres MD [Staff Provider] - Disposition: HOME/ ROUTINE Disposition Time: 11:43 Condition: STABLE Additional Instructions: Follow up with urologist in 1-2 days Instructions: Urinary Retention (DC) Forms: [facility] (Afghan) - POA Present On Arrival: None - Clinical Impression Clinical Impression: Urinary retention - PA / CLAY DRY PRESS OPERATOR / Resident Statement MD/DO has reviewed & agrees with the documentation as recorded. - Scribe Statement The provider has reviewed the documentation as recorded by the Carol Annibmiguel Tam All medical record entries made by the Peter were at my direction and personally dictated by me. I have reviewed the chart and agree that the record accurately reflects my personal performance of the history, physical exam, medical decision making, and the department course for this patient. I have also personally directed, reviewed, and agree with the discharge instructions and disposition.
[2018-07-03 11:12] LABS: URINE BILIRUBIN NEGATIVE (NEGATIVE); URINE BLOOD NEGATIVE (NEGATIVE); URINE CLARITY Clear (Clear); URINE COLOR Colorless (YELLOW); URINE GLUCOSE (UA) NORMAL (Normal); URINE LEUKOCYTE ESTERASE NEG Leu/uL (Negative); URINE PROTEIN NEGATIVE (NEGATIVE); URINE UROBILINOGEN NORMAL mg/dL (0.2-1.0)
== END 2018-07-03 12:02 | disposition home or self-care (01) ==
LOC: C.ER 10:34
DX: R33.9 Retention of urine, unspecified (principal)

== ENCOUNTER 2018-07-08 08:30 | Emergency (ER) | payer MEDICARE, OTHER ==
[2018-07-08 08:31] VITALS: BMI 25.8
[2018-07-08 08:42] VITALS: O2SAT 99
[2018-07-08 09:54] LABS: URINE BILIRUBIN NEGATIVE (NEGATIVE); URINE BLOOD 2+ (NEGATIVE); URINE CLARITY Hazy (Clear); URINE COLOR Red (YELLOW); URINE GLUCOSE (UA) NORMAL (Normal); URINE PROTEIN 2+ mg/dL (NEGATIVE); URINE UROBILINOGEN NORMAL mg/dL (0.2-1.0)
[2018-07-08 09:55] LABS: URINE LEUKOCYTE ESTERASE TRACE Leu/uL (Negative)
--- NOTE | 2018-07-08 10:08 | C.PDOC ---
History Of Present Illness 72yo male with PMH BPH c/o blood in the urine. Pt notes that on 07/03/18 he was seen in [facility] for urinary retention and had urinary catheter placed. He notes that day he had some scant blood in the urine but since it has progressively increased. Also notes some urine coming out of the tip of the penis. He denies discharge, abdominal pain, fever, back pain, dizziness or weakness. Time Seen by Provider: 07/08/18 08:36 Chief Complaint (Nursing): Male Genitourinary History Per: Patient History/Exam Limitations: no limitations Onset/Duration Of Symptoms: Days Current Symptoms Are (Timing): Still Present Past Medical History Vital Signs: Last Vital Signs Temp 97.8 F 07/08/18 08:38 Pulse 95 H 07/08/18 08:38 Resp 20 07/08/18 08:38 BP 152/73 H 07/08/18 08:38 Pulse Ox 99 07/08/18 08:38 - Medical History PMH: Arthritis (R ARM FX; KNEE), Benign Prostatic Hyperplasia, Fractures (RIGHT ARM), HTN, Peripheral Edema, Pneumonia (1965) Denies: Chronic Kidney Disease - [facility] Procedures DRAINAGE OF L FOOT SUBCU/FASCIA, OPEN APPROACH (03/09/17) DRAINAGE OF LEFT FOOT SKIN, EXTERNAL APPROACH (03/09/17) EXCISION OF BACK SUBCU/FASCIA, OPEN APPROACH (08/24/17) EXCISION OF L FOOT SUBCU/FASCIA, OPEN APPROACH (03/09/17) EXCISION OF R UP ARM SUBCU/FASCIA, OPEN APPROACH (08/24/17) EXTRACTION OF ANT NECK SUBCU/FASCIA, OPEN APPROACH (08/24/17) INSERT INDWELLING CATH (04/08/15) INSERTION OF INFUSION DEV INTO SUP VENA CAVA, PERC APPROACH (08/24/17) INSPECTION OF NECK, OPEN APPROACH (08/24/17) NONEXCIS DEBRID OF WOUND, INFECT, OR BURN (01/31/13) OTHER SKIN & SUBQ I D (01/31/13) TRANSFER LEFT FOOT SKIN, EXTERNAL APPROACH (03/09/17) VENOUS CATHETERIZATION NEC (01/31/13) Family History: States: Unknown Family Hx - Social History Hx Tobacco Use: No Hx Alcohol Use: No Hx Substance Use: No - Immunization History Hx Tetanus Toxoid Vaccination: No Hx Influenza Vaccination: No Hx Pneumococcal Vaccination: No Review Of Systems Except As Marked, All Systems Reviewed And Found Negative. Genitourinary: Positive for: Hematuria Physical Exam - Physical Exam Appears: Well, Non-toxic, No Acute Distress Skin: Normal Color, Warm, Dry Head: Atraumatic, Normacephalic Eye(s): bilateral: Normal Inspection, PERRL, EOMI Nose: Normal Throat: Normal Neck: Normal, Normal ROM, Supple Chest: Symmetrical Respiratory: No Accessory Muscle Use Gastrointestinal/Abdominal: Normal Exam, Soft, No Tenderness Back: Normal Inspection Male Genital: Other (bloody urine, no clots) Extremity: Normal ROM Neurological/Psych: Oriented x3, Normal Speech, Normal Cognition ED Course And Treatment O2 Sat by Pulse Oximetry: 99 Progress Note: Offered to change catheter, pt refused. Case discussed with Dr Dowell who instrusts RX as prescribed and follow up in the office. Pt verbalizes understanding. Disposition - Disposition Disposition: HOME/ ROUTINE Disposition Time: 10:05 Condition: STABLE Additional Instructions: Follow up with your urologist in 1-2 days. Return to ER if symptoms persist or worsen. Prescriptions: Cefuroxime Axetil [Cefuroxime] 500 mg PO BID #10 tablet Instructions: Blood in the Urine (Hematuria), Adult (DC) Forms: [employer] ([place] Citizen) - Clinical Impression Clinical Impression: Hematuria
--- NOTE | 2018-07-08 10:08 | C.PDOC ---
Time Seen by Provider: 07/08/18 08:36 Chief Complaint (Nursing): Male Genitourinary Past Medical History Vital Signs: Last Vital Signs Temp 97.8 F 07/08/18 08:38 Pulse 95 H 07/08/18 08:38 Resp 20 07/08/18 08:38 BP 152/73 H 07/08/18 08:38 Pulse Ox 99 07/08/18 08:38 - Medical History PMH: Arthritis (R ARM FX; KNEE), Benign Prostatic Hyperplasia, Fractures (RIGHT ARM), HTN, Peripheral Edema, Pneumonia (1965) Denies: Chronic Kidney Disease - [facility] Procedures DRAINAGE OF L FOOT SUBCU/FASCIA, OPEN APPROACH (03/09/17) DRAINAGE OF LEFT FOOT SKIN, EXTERNAL APPROACH (03/09/17) EXCISION OF BACK SUBCU/FASCIA, OPEN APPROACH (08/24/17) EXCISION OF L FOOT SUBCU/FASCIA, OPEN APPROACH (03/09/17) EXCISION OF R UP ARM SUBCU/FASCIA, OPEN APPROACH (08/24/17) EXTRACTION OF ANT NECK SUBCU/FASCIA, OPEN APPROACH (08/24/17) INSERT INDWELLING CATH (04/08/15) INSERTION OF INFUSION DEV INTO SUP VENA CAVA, PERC APPROACH (08/24/17) INSPECTION OF NECK, OPEN APPROACH (08/24/17) NONEXCIS DEBRID OF WOUND, INFECT, OR BURN (01/31/13) OTHER SKIN & SUBQ I D (01/31/13) TRANSFER LEFT FOOT SKIN, EXTERNAL APPROACH (03/09/17) VENOUS CATHETERIZATION NEC (01/31/13) Family History: States: Unknown Family Hx - Social History Hx Tobacco Use: No Hx Alcohol Use: No Hx Substance Use: No - Immunization History Hx Tetanus Toxoid Vaccination: No Hx Influenza Vaccination: No Hx Pneumococcal Vaccination: No ED Course And Treatment O2 Sat by Pulse Oximetry: 99 Disposition - Disposition Forms: [employer] (Vincentian)
[2018-07-08 11:03] VITALS: BP 145/70; PULSE 90; RESP 16; TEMP 97.9
== END 2018-07-08 11:01 | disposition home or self-care (01) ==
LOC: C.ER 08:30
DX: N40.1 Benign prostatic hyperplasia with lower urinary tract symptoms (principal); R31.9 Hematuria, unspecified; I10 Essential (primary) hypertension

== ENCOUNTER 2018-07-10 04:35 | Emergency (ER) | payer MEDICARE, OTHER ==
[2018-07-10 04:36] VITALS: BMI 25.8
[2018-07-10 04:48] VITALS: BP 148/72; PULSE 91; RESP 16; TEMP 97.5; O2SAT 97
--- NOTE | 2018-07-10 05:27 | C.PDOC ---
History Of Present Illness 72 year old male with PMHx of urinary retention presents to the ED for evaluation. Patient was seen in the ED last week and had a cath placed. Patient reports cath has been in place for a week, however patient noticed today while his urine was coming outside the cath and not in the bag. Patient denies fever, chills, nausea, vomit, abdominal pain, back pain. Time Seen by Provider: 07/10/18 04:52 Chief Complaint (Nursing): Male Genitourinary History Per: Patient History/Exam Limitations: no limitations Onset/Duration Of Symptoms: Days Current Symptoms Are (Timing): Still Present Quality Of Discomfort: "Pain" Associated Symptoms: Urinary Symptoms. denies: Nausea, Vomiting, Diarrhea, Constipation Recent travel outside of the [place]: No Additional History Per: Patient Past Medical History Reviewed: Historical Data, Nursing Documentation, Vital Signs Vital Signs: Last Vital Signs Temp 97.5 F L 07/10/18 04:45 Pulse 91 H 07/10/18 04:45 Resp 16 07/10/18 04:45 BP 148/72 07/10/18 04:45 Pulse Ox 97 07/10/18 04:45 - Medical History PMH: Arthritis (R ARM FX; KNEE), Benign Prostatic Hyperplasia, Fractures (RIGHT ARM), HTN, Peripheral Edema, Pneumonia (1965) Denies: Chronic Kidney Disease Surgical History: No Surg Hx - [facility] Procedures DRAINAGE OF L FOOT SUBCU/FASCIA, OPEN APPROACH (03/09/17) DRAINAGE OF LEFT FOOT SKIN, EXTERNAL APPROACH (03/09/17) EXCISION OF BACK SUBCU/FASCIA, OPEN APPROACH (08/24/17) EXCISION OF L FOOT SUBCU/FASCIA, OPEN APPROACH (03/09/17) EXCISION OF R UP ARM SUBCU/FASCIA, OPEN APPROACH (08/24/17) EXTRACTION OF ANT NECK SUBCU/FASCIA, OPEN APPROACH (08/24/17) INSERT INDWELLING CATH (04/08/15) INSERTION OF INFUSION DEV INTO SUP VENA CAVA, PERC APPROACH (08/24/17) INSPECTION OF NECK, OPEN APPROACH (08/24/17) NONEXCIS DEBRID OF WOUND, INFECT, OR BURN (01/31/13) OTHER SKIN & SUBQ I D (01/31/13) TRANSFER LEFT FOOT SKIN, EXTERNAL APPROACH (03/09/17) VENOUS CATHETERIZATION NEC (01/31/13) Family History: States: Unknown Family Hx - Social History Hx Tobacco Use: No Hx Alcohol Use: No Hx Substance Use: No - Immunization History Hx Tetanus Toxoid Vaccination: No Hx Influenza Vaccination: No Hx Pneumococcal Vaccination: No Review Of Systems Constitutional: Negative for: Fever, Chills Gastrointestinal: Negative for: Nausea, Vomiting, Abdominal Pain Genitourinary: Positive for: Other (retention). Negative for: Incontinence Skin: Negative for: Rash Neurological: Negative for: Weakness, Numbness, Headache Physical Exam - Physical Exam Appears: Non-toxic, No Acute Distress Skin: Normal Color, Warm, Dry Head: Atraumatic, Normacephalic Eye(s): bilateral: Normal Inspection Neck: Normal ROM, Supple Chest: Symmetrical Cardiovascular: Rhythm Regular Respiratory: Normal Breath Sounds, No Rales, No Rhonchi, No Wheezing Gastrointestinal/Abdominal: Soft, No Tenderness, No Guarding Male Genital: No Testicular Tenderness, No Testicular Swelling, Other (cath in place) Extremity: Normal ROM, No Tenderness, No Swelling Neurological/Psych: Oriented x3, Normal Speech, Normal Cognition Gait: Steady ED Course And Treatment O2 Sat by Pulse Oximetry: 97 (ON RA) Pulse Ox Interpretation: Normal Medical Decision Making Medical Decision Making: The patient is requesting to have the catheter removed and understands the risks of possible return of retention. He states he will return if symptoms persist. Catheter was removed by ED nurse. Disposition - Disposition Referrals: Oseas Torres MD [Staff Provider] - Disposition: HOME/ ROUTINE Disposition Time: 05:26 Condition: STABLE Additional Instructions: Return if worsened. Instructions: Urinary Retention (DC) Forms: [employer] (Kazakh) - Clinical Impression Clinical Impression: Urinary retention - PA / WASH BOX OPERATOR / Resident Statement MD/DO has reviewed & agrees with the documentation as recorded. - Scribe Statement The provider has reviewed the documentation as recorded by the Scribe Jayesh Connolly All medical record entries made by the Scribe were at my direction and personally dictated by me. I have reviewed the chart and agree that the record accurately reflects my personal performance of the history, physical exam, [facility] decision making, and the department course for this patient. I have also personally directed, reviewed, and agree with the discharge instructions and disposition.
== END 2018-07-10 05:50 | disposition home or self-care (01) ==
LOC: C.ER 04:35
DX: R33.9 Retention of urine, unspecified (principal)

== ENCOUNTER 2018-10-05 07:17 | Outpatient (CLI) | payer MEDICARE | END 2018-10-05 07:18 | disposition home or self-care (01) | LOC: C.LAB 07:17 ==

== ENCOUNTER 2018-12-25 07:13 | Outpatient (CLI) | payer MEDICARE | END 2018-12-25 07:14 | disposition home or self-care (01) | LOC: C.LAB 07:13 | DX: R07.9 Chest pain, unspecified (principal); I11.9 Hypertensive heart disease without heart failure; E11.9 Type 2 diabetes mellitus without complications; E03.9 Hypothyroidism, unspecified; D64.9 Anemia, unspecified ==